=== PATIENT | female | born 1935 | race Caucasian/White ===

== ENCOUNTER 2017-08-27 09:14 | Day surgery (SDC) | payer MEDICARE, MEDICAID ==
[2017-08-26 12:06] VITALS: BMI 27.3
[2017-08-27 10:16] LABS: INR-International Normal Ratio 1.3; PTT 23.6 SEC (22.9-36.1); Prothrombin Time 16.1 SEC (12.0-14.7)
[2017-08-27 10:19] LABS: #Eosinphils 0.1 thou/uL (0.0-0.7); #Monocytes 0.4 thou/uL (0.11-0.59); %Basophils 0.4 % (0.0-1.0); %Lymphocytes 9.3 % (21.0-51.0); %Monocytes 3.9 % (0.0-10.0); %Neutrophils 85.3 % (42.0-75.0); Hemoglobin 11.8 g/dL (12.0-16.0); Mean Corpuscular HGB CONC 33.5 g/dL (32.0-36.0); Mean Corpuscular Hemoglobin 28.7 pg (27.0-31.0); Mean Corpuscular Volume 85.7 fl (81.0-99.0); Mean Platelet Volume 7.1 fL (7.4-10.4); Platelet Count 334 thou/uL (130-400); RBC Distribution Width 13.5 % (11.5-14.5); Red Blood Cell (RBC) Count 4.12 mill/uL (4.20-5.40); White Blood Cell (WBC) Count 10.5 thou/uL (4.8-10.8)
[2017-08-27 10:31] LABS: Anion Gap 18 mmol/L (10-20); BUN (Urea Nitrogen) 30 mg/dL (9.8-20.1); Calc. Creatinine Clearance 37 mL/min (70-130); Calcium 9.3 mg/dL (7.8-10.44); Carbon Dioxide 26 mmol/L (23-31); Chloride 98 mmol/L (98-107); Estimated GFR-MDRD 35; Glucose 116 mg/dL (83-110); Potassium 4.6 mmol/L (3.5-5.1); Sodium 137 mmol/L (136-145)
[2017-08-27] MEDS ORDERED: Lidocaine 1% (PF) 30 ML VIAL ONE (12:00)
[2017-08-27] MEDS ORDERED: Propofol 500 MG/50 ML VIAL ONE (12:12)
[2017-08-27] MEDS ORDERED: Heparin 10,000 UNITS/1 ML VIAL ONE (12:39)
[2017-08-27] MEDS ORDERED: DOPamine 400 MG/D5W 250 ML 250 ML ONE (12:39)
[2017-08-27] MEDS ORDERED: Ondansetron HCl/PF 4 MG/2 ML Vial ONE ×2 (13:15→16:19)
--- NOTE | 2017-08-27 16:07 | CCLSPC ---
AV BARRON ABLATION REPORT DATE OF PROCEDURE: 08/27/2017 REFERRING PHYSICIAN: Dr. Ayana oHuston. REASON FOR PROCEDURE: Ms. Temple is an 82-year-old female with history of atrial arrhythmia, paroxysmal atrial fibrillation, is highly symptomatic prior biventricular pacing implantation in 03/2017 with currently adequate function. She is here for AV barron ablation. PROCEDURE IN DETAIL: The patient received deep sedation by Anesthesia specialist. After adequate level of sedation achieved, the left femoral venous area was prepped, draped and anesthetized using subcutaneous lidocaine and with ultrasound guidance, the left femoral vein was cannulated. An 8-Wolof short sheath was introduced through which a J-curve uni-directional SmartTouch irrigative catheter was advanced to the right atrium and right atrial map was obtained and as well as His bundle ----- was marked on the 3D map. Following that, radiofrequency ablation was delivered at the fast pathway area tand hen to the slow pathway area, which successfully eliminated AV barron conduction. Returned rate was 38 beats per minute, junctional rhythm. No AV conduction was observed. Pacemaker was re-interrogated, reprogrammed to base rate of 75 beats per minute. The catheter was removed. No complications. No change in the cardiac silhouette. Post ablation pacemaker function was adequate. reprogrammed base rate to 75BPM. CONCLUSION: Successful AV barron ablation. PLAN: Routine followup, resume anticoagulants and taper off AV barron blocking agents. POS: [facility]
== END 2017-08-27 16:16 | disposition home or self-care (01) ==
LOC: CCL 09:14
PROVIDERS: ATTEND Internal Medicine Cardiovascular Disease
DX: I48.0 Paroxysmal atrial fibrillation (principal); I11.0 Hypertensive heart disease with heart failure; I50.9 Heart failure, unspecified; E78.00 Pure hypercholesterolemia, unspecified; I25.10 Atherosclerotic heart disease of native coronary artery without angina pectoris; J44.9 Chronic obstructive pulmonary disease, unspecified; Z79.01 Long term (current) use of anticoagulants; Z79.82 Long term (current) use of aspirin; Z79.52 Long term (current) use of systemic steroids; Z79.899 Other long term (current) drug therapy; Z91.041 Radiographic dye allergy status; Z95.820 Peripheral vascular angioplasty status with implants and grafts; Z98.41 Cataract extraction status, right eye; Z95.1 Presence of aortocoronary bypass graft; Z98.2 Presence of cerebrospinal fluid drainage device; Z95.0 Presence of cardiac pacemaker; Z98.890 Other specified postprocedural states; Z98.891 History of uterine scar from previous surgery
CPT/HCPCS: 76942; 80048; 85025; 85610; 85730; 93005; 93613; 93623; 93650; C1769; 93010; J1265; J1644; J2001; J2405; J2704

== ENCOUNTER 2017-11-12 16:49 | Inpatient (IN) | payer MEDICARE, MEDICAID ==
[2017-11-12] MEDS ORDERED: Magnesium Sulfate 2 GM/100 ML BAG ONE (17:12)
[2017-11-12 17:22] LABS: #Basophils 0.1 thou/uL (0.0-0.2); #Eosinphils 0.8 thou/uL (0.0-0.7); #Lymphocytes 1.2 thou/uL (1.20-3.40); #Monocytes 0.7 thou/uL (0.11-0.59); #Neutrophils 9.1 thou/uL (1.40-6.50); %Basophils 0.5 % (0.0-1.0); %Eosinophils 6.8 % (0.0-10.0); %Lymphocytes 9.8 % (21.0-51.0); %Neutrophils 76.9 % (42.0-75.0); Hemoglobin 10.3 g/dL (12.0-16.0); Mean Corpuscular HGB CONC 33.1 g/dL (32.0-36.0); Mean Corpuscular Hemoglobin 26.7 pg (27.0-31.0); Mean Corpuscular Volume 80.7 fl (81.0-99.0); Mean Platelet Volume 6.5 fL (7.4-10.4); Platelet Count 393 thou/uL (130-400); RBC Distribution Width 14.2 % (11.5-14.5); Red Blood Cell (RBC) Count 3.85 mill/uL (4.20-5.40); White Blood Cell (WBC) Count 11.8 thou/uL (4.8-10.8)
--- NOTE | 2017-11-12 17:30 | RAD ---
PORTABLE UPRIGHT CHEST ONE VIEW 11/12/17 HISTORY: 82-year-old female with dyspnea and shortness of breath. COMPARISON: 03/12/17. FINDINGS: Postop midline sternotomy. Left ICD. There are scattered bilateral interstitial and alveolar nodular parenchymal changes throughout both lungs with some blunting of the costophrenic angles, certainly wo rrisome for bilateral pulmonary edema. Diffuse atypical pneumonia or pneumonitis could have a similar appearance radiographically. No focal confluent process. IMPRESSION: Extensive bilateral interstitial and scattered alveolar nodular parenchymal changes throughout both l ungs with some blunting of the costophrenic angles favored to represent pulmonary edema, although aty pical pneumonia or pneumonitis could have a similar appearance radiographically. POS: [facility]
[2017-11-12] MEDS ORDERED: Nitroglycerin 2% Ointment 1 INCH/1 GM Packet ONE (17:40)
[2017-11-12 17:54] LABS: ALT (SGPT) Less than 7 U/L (8-55); AST (SGOT) 12 U/L (5-34); Albumin 3.8 g/dL (3.4-4.8); Alkaline Phosphatase 78 U/L (40-150); Anion Gap 16 mmol/L (10-20); BUN (Urea Nitrogen) 15 mg/dL (9.8-20.1); Bilirubin, Total 0.7 mg/dL (0.2-1.2); CK (CPK) 44 U/L (29-168); Calc. Creatinine Clearance 0 mL/min (70-130); Calcium 9.2 mg/dL (7.8-10.44); Carbon Dioxide 22 mmol/L (23-31); Chloride 95 mmol/L (98-107); Estimated GFR-MDRD 51; Globulin 4.2 g/dL (2.4-3.5); Glucose 128 mg/dL (83-110); Potassium 4.6 mmol/L (3.5-5.1); Sodium 128 mmol/L (136-145)
[2017-11-12 17:58] LABS: Troponin I Less than 0.010 ng/mL (< 0.028)
[2017-11-12] MEDS ORDERED: Furosemide 40 MG/4 ML VIAL ONE (18:31)
[2017-11-12 20:51] LABS: Troponin I Less than 0.010 ng/mL (< 0.028)
--- NOTE | 2017-11-12 21:10 | ULT ---
LEFT LOWER EXTREMITY VENOUS DUPLEX ULTRASOUND INCLUDING COLOR AND SPECTRAL DOPPLER IMAGIN11/12/17 HISTORY: 82-year-old female with history of left lower extremity pain and edema. Also shortness of breath. Exam performed from groin to ankle including visualized greater saphenous, common femoral, superficia l femoral, profunda femoral, popliteal, trifurcation, and posterior tibial vein regions. There is pha sic flow at all levels. There is normal compressibility and normal augmentation. No intraluminal thro mbus. IMPRESSION: No evidence for deep venous thrombosis. POS: [facility]
[2017-11-12] MEDS ORDERED: Acetaminophen 325 MG TAB PO PRN (21:56)
[2017-11-12] MEDS ORDERED: Milk Of Magnesia 30 ML UDCUP PO PRN (21:56)
[2017-11-12] MEDS ORDERED: Ondansetron HCl/PF 4 MG/2 ML Vial IVP PRN (22:58)
[2017-11-12] MEDS ORDERED: Ondansetron ODT 4 MG TAB SL PRN (22:58)
[2017-11-12 23:07] VITALS: BMI 26.6
[2017-11-12] MEDS ORDERED: Albuterol Sulfate 2.5 mg/3 ml Neb NEB PRN (23:15)
[2017-11-12] MEDS ORDERED: Rivaroxaban 15 MG TAB PO SCH (23:30)
[2017-11-12] MEDS ORDERED: Carvedilol 25 MG TAB PO SCH (23:30)
[2017-11-12 23:31] LABS: Troponin I Less than 0.010 ng/mL (< 0.028)
--- NOTE | 2017-11-13 00:29 | HP ---
PRIMARY CARE PHYSICIAN: Yamini Ibarra D.O. PRESENTING COMPLAINT: Shortness of breath. HISTORY OF PRESENT ILLNESS: Ms. Windy Cerrato is an 82-year-old female with a past medical history of CHF, AFib, CABG, and pacemaker placement, COPD, and hypertension who presented to the emergency room with a 1 week history of progressively worsening shortness of breath. She denies chest pain, palpitation, PND or orthopnea. She reports mild bilateral lower extremity edema. She states that for about 5 days she has not been taking her Lasix, although does not have any specific reasons why she stopped. She denies fever, chills, cough, and sputum production. She has no abdominal or urinary symptoms. At the emergency room, she was found to be slightly hypoxic and was started on oxygen supplementation. Her labs reveal slight leukocytosis and hyponatremia. BNP was over 1300. She was started on IV furosemide and admitted for acute CHF exacerbation. PAST MEDICAL HISTORY: As stated in the HPI. PAST SURGICAL HISTORY: Left carotid endarterectomy her left leg for PVD, as well as 4-vessel CABG. ALLERGIES: IODINE. SOCIAL HISTORY: Does not smoke cigarettes, drink alcohol or use illicit drugs. FAMILY HISTORY: Significant family history of heart disease. ALLERGIES: IODINE. HOME MEDICATIONS: Acetaminophen with codeine 1 tablet every 6 hours p.r.n., atorvastatin 80 mg at bedtime, diphenhydramine 50 mg every 6 hours, furosemide 40 mg daily, pantoprazole 40 mg daily, aspirin 81 mg daily, carvedilol 25 mg b.i.d., rivaroxaban 15 mg at bedtime. REVIEW OF SYSTEMS: Constitutional: Denies fevers or chills. HEENT: Negative. Cardiovascular: Denies chest pain. Positive for shortness of breath and lower extremity edema. Respiratory: Positive for shortness of breath, but denies cough or sputum production. Gastrointestinal: Negative. Genitourinary: Negative. Musculoskeletal: Negative. Skin: Negative. Neurological: Negative. Hematological/lymphatic: Negative. Allergy/immunology Negative. Psychiatric: Negative. PHYSICAL EXAMINATION: VITAL SIGNS: Heart rate 96, blood pressure 161/69, pulse rate 95, respiratory rate 27. GENERAL: Not in acute distress, sitting comfortably in bed, has nasal cannula oxygen going on 2 liters. HEENT: Normocephalic, atraumatic. Not pale, anicteric. Moist mucous membranes. PERRLA, EOMI. NECK: Supple, full range of movement. No JVD. RESPIRATORY: Bilateral bibasilar crackles in lower lung zone. CARDIOVASCULAR: Positive for systolic murmur, irregularly irregular rhythm with regular rate. S1 and S2. No rubs or gallops. ABDOMEN: Soft, nontender, nondistended. Bowel sounds normoactive. No hepatosplenomegaly. MUSCULOSKELETAL: Minimal bilateral lower extremity edema. NEUROLOGIC: Alert and well oriented to time, place and person. No focal deficits. SKIN: Warm, dry. No rashes or lesions. PSYCHIATRIC: No suicidal or homicidal ideations. Mood and affect. GENITOURINARY: Deferred. LABORATORY DATA: As stated in HPI. Chest x-ray showed extensive bilateral interstitial and scattered alveolar nodular parenchymal changes throughout both lungs with some blunting of the costophrenic angles favored to represent pulmonary edema or due to atypical pneumonia or pneumonitis could have a similar appearance radiographically. EKG, no signs of acute ischemia. ASSESSMENT AND PLAN: 1. Acute congestive heart failure exacerbation. The patient has an ejection fraction of 50-55% from echocardiogram done in 02/2017. She also had a cardiac catheterization in 08/2017. She has been started on oxygen supplementation, intravenous furosemide. Her ins and outs will be monitored as well as daily weights. Cardiology will be consulted. Troponin will also be trended and she will be monitored on telemetry. She reports feeling much better since receiving IV furosemide. 2. Atrial fibrillation. She is currently rate controlled. We will continue on her home regimen of aspirin and Xarelto, as well as carvedilol. 3. Coronary artery disease status post CABG and pacemaker. Currently, chest pain free. We will resume home medications once confirmed. 4. Hypertension, fairly blood pressure is not at goal. We will resume home medications once confirmed. Deep venous thrombosis prophylaxis. The patient on anticoagulation with Xarelto. CODE STATUS: FULL CODE. MTDD
[2017-11-13 05:08] LABS: #Lymphocytes 0.6 thou/uL (1.20-3.40); #Monocytes 0.1 thou/uL (0.11-0.59); #Neutrophils 4.9 thou/uL (1.40-6.50); %Basophils 0.7 % (0.0-1.0); %Eosinophils 0.1 % (0.0-10.0); %Monocytes 1.4 % (0.0-10.0); %Neutrophils 86.8 % (42.0-75.0); Hemoglobin 9.7 g/dL (12.0-16.0); Mean Corpuscular HGB CONC 32.3 g/dL (32.0-36.0); Mean Corpuscular Hemoglobin 25.8 pg (27.0-31.0); Mean Platelet Volume 6.7 fL (7.4-10.4); Platelet Count 359 thou/uL (130-400); RBC Distribution Width 14.1 % (11.5-14.5); Red Blood Cell (RBC) Count 3.75 mill/uL (4.20-5.40); White Blood Cell (WBC) Count 5.7 thou/uL (4.8-10.8)
[2017-11-13 05:17] LABS: Anion Gap 14 mmol/L (10-20); BUN (Urea Nitrogen) 19 mg/dL (9.8-20.1); Calc. Creatinine Clearance 54 mL/min (70-130); Calcium 8.6 mg/dL (7.8-10.44); Carbon Dioxide 25 mmol/L (23-31); Chloride 95 mmol/L (98-107); Estimated GFR-MDRD 55; Glucose 156 mg/dL (83-110); Sodium 130 mmol/L (136-145)
[2017-11-13] MEDS ORDERED: Furosemide 40 MG/4 ML VIAL SLOW IVP SCH (06:00)
[2017-11-13] MEDS ORDERED: Carvedilol 25 MG TAB PO SCH (08:00)
[2017-11-13] MEDS ORDERED: Aspirin 81 mg Enteric Coated Tablet PO SCH (09:00)
[2017-11-13] MEDS ORDERED: Docusate 100 MG CAP PO SCH (09:00)
[2017-11-13] MEDS ORDERED: Digoxin 0.125 MG TAB PO SCH (09:00)
[2017-11-13 12:04] VITALS: BP 158/85; TEMP 98.2
--- NOTE | 2017-11-13 13:23 | CON ---
DATE OF CONSULTATION: 11/13/2017 REASON FOR CONSULTATION: Heart failure. HISTORY OF PRESENT ILLNESS: Ms. Temple is a pleasant 82-year-old white female, who comes to the [facility] for shortness of breath. She states she has not been taking her Lasix lately for the last 5 d ays and she started to get short of breath, so she came in. She received 1 dose of IV Lasix, diurese d some, and is feeling much better today. She wants to go home. She denies any chest pain, tightnes s, pressure. Shortness of breath is gone. She is currently on room air. PAST MEDICAL HISTORY: 1. History of diastolic heart failure. Her LV function most recently was evaluated in February and it was 50%-55%. 2. Atrial fibrillation, chronic, status post AV node ablation. 3. Coronary artery bypass grafting. 4. Biventricular pacemaker placement. 5. Chronic obstructive pulmonary disease. 6. Hypertension. PAST SURGICAL HISTORY: 1. Left carotid endarterectomy. 2. Left leg PVD intervention. 3. Four-vessel CABG. OUTPATIENT MEDICATIONS: Include, 1. Codeine. 2. Atorvastatin 80 mg at bedtime. 3. Diphenhydramine. 4. Furosemide 40 mg a day. 5. Pantoprazole 40 mg a day. 6. Aspirin 81 a day. 7. Carvedilol 25 mg b.i.d. 8. Xarelto 50 mg at bedtime. ALLERGIES: IODINE. SOCIAL HISTORY: No alcohol, tobacco, or drugs. FAMILY HISTORY: Early coronary artery disease, inconsequential at her age. REVIEW OF SYSTEMS: A 12-point review of systems was done, is otherwise negative unless stated in the history of present illness. PHYSICAL EXAMINATION: VITAL SIGNS: Temperature 98.2, pulse 77, respiratory rate 20, satting 95% on room air, blood pressur e 158/85. GENERAL: Awake, alert, oriented x3, in no distress. HEENT: Normocephalic. NECK: Supple. LUNGS: Lungs are clear. CARDIOVASCULAR: S1, S2, no S3, S4, no murmurs. ABDOMEN: Soft. Positive bowel sounds. EXTREMITIES: Trace edema. SKIN: Warm and dry. LABORATORY WORK: Reviewed. Troponins were undetectable. BNP was 1300. ASSESSMENT AND PLAN: 1. Acute on chronic heart failure, could be diastolic. Her last echocardiogram was in February. She did not have an acute coronary syndrome, most likely related to medication noncompliance , as she did not take any of her Lasix for the last week. She feels much better. She wants to go ho me. She is very adamant about this. She has an appointment. Follow up with Dr. Houston in 20 days. She was asked to keep this. She states that she will show up and she will keep taking her medicatio ns. 2. Chronic atrial fibrillation, status post AV node ablation, a dual pacemaker in place. A paced he art rate on telemetry. 3. Coronary artery disease, status post bypass. No acute coronary syndrome, negative troponins. 4. Hypertension, most likely not controlled due to medication noncompliance. She was encouraged on medication compliance again. DISCHARGE INSTRUCTIONS: 1. Disposition: The patient can be sent home today. 2. She will follow up with Dr. Houston in 2 weeks. 3. We will sign off. Thank you for consultation.
[2017-11-13] MEDS ORDERED: Rivaroxaban 15 MG TAB PO SCH (21:00)
--- NOTE | 2017-11-13 22:20 | DIS ---
DATE OF ADMISSION: 11/12/2017 DATE OF DISCHARGE: 11/13/2017 CONDITION AT THE TIME OF DISCHARGE: Stable and improved. DISCHARGE DIAGNOSES: 1. Acute on chronic congestive heart failure exacerbation; diastolic in nature. 2. Chronic atrial fibrillation, status post AV ablation. 3. History of coronary artery disease, status post coronary artery bypass graft. 4. History of biventricular pacemaker placement 5. Chronic obstructive pulmonary disease. 6. Hypertension. CONSULTATIONS INHOUSE: Cardiology, Dr. Johnson. PRIMARY CARE PHYSICIAN: Yamini Ibarra D.O. DISCHARGE MEDICATIONS: Remain the same as admission medication. Please see admission history and ph ysical for further details. PROCEDURES DONE IN THE HOSPITAL: Lower extremity ultrasound which is negative for any DVT and chest x-ray which shows pulmonary vascular congestion. HISTORY OF PRESENTING ILLNESS: Ms. Temple is an 82-year-old female with known history of diastolic congestive heart failure, chronic AFIB, coronary artery disease and biventricular pacemaker placemen t who presented to the emergency room with complaints of shortness of breath. She did not take her L asix for the last 5 days on purpose and because of laziness and presented with fluid overload and acu te CHF. She was admitted for IV diuresis and Cardiology was consulted. She was restarted on all of her home medications including Xarelto as well as Lipitor, Protonix, Coreg, Cardizem, digoxin and Kraig icar. Please see admission history and physical for further details. HOSPITAL COURSE: Ms. Temple it had quick improvement in her symptoms and this morning she is back to her baseline. She had excellent diuresis and is ready to leave the hospital. Cardiology saw the patient and agreed with resuming the home dose of Lasix as she has had good diuresis and is on room a ir saturating 95% and very adamant about going home. She follows up with Dr. Houston in the clinic an d is instructed to follow up with him as an outpatient. She was given option to stay in the hospital 1 more night for further diuresis, but because she is hemodynamically stable and back to her baselin e, she will be discharged. She is strongly instructed to continue her home medication of Lasix for n ow. She was seen and examined prior to discharge. PHYSICAL EXAMINATION: VITAL SIGNS: This morning, temperature 98.2, pulse of 77, respirations 20, saturating 95% on room ai r, blood pressure 158/85. GENERAL: No acute distress, awake, alert, and oriented x3. CHEST: Clear to auscultation without any wheezing, rales or rhonchi. Rhythm is regular without any murmur, rubs or gallops. NEUROLOGICAL: Examination is nonfocal. LABORATORY DATA: CBC shows WBCs 5.7, which was 11.8 on presentation with 86% neutrophils. Serum dania gail shows sodium of 130, which was 128 upon presentation. Cardiac enzymes negative x3. BNP on pr esentation 1380. DISCHARGE DISPOSITION: Home. DISCHARGE FOLLOWUP: 1. PCP. 2. Cardiology, Dr. Houston.
== END 2017-11-13 13:46 | disposition home or self-care (01) | DRG 292 ==
LOC: ERS 16:49 → 2SE 19:00
PROVIDERS: ADMIT Internal Medicine; ATTEND Internal Medicine
DX: I11.0 Hypertensive heart disease with heart failure (principal); E87.1 Hypo-osmolality and hyponatremia; I50.33 Acute on chronic diastolic (congestive) heart failure; I48.2 Chronic atrial fibrillation; I25.10 Atherosclerotic heart disease of native coronary artery without angina pectoris; J44.9 Chronic obstructive pulmonary disease, unspecified; T50.1X6A Underdosing of loop [high-ceiling] diuretics, initial encounter; Z91.128 Patient's intentional underdosing of medication regimen for other reason; I73.9 Peripheral vascular disease, unspecified; Z95.1 Presence of aortocoronary bypass graft; Z95.0 Presence of cardiac pacemaker; Z88.8 Allergy status to other drugs, medicaments and biological substances; Z79.01 Long term (current) use of anticoagulants; Z79.82 Long term (current) use of aspirin; Z79.899 Other long term (current) drug therapy
CPT/HCPCS: 36415; 71045; 80048; 80053; 82550; 82553; 83880; 84484; 85025; 93005; 94760; 96365; 96375; A4216; J1940; J3475

== ENCOUNTER 2017-12-14 17:01 | Emergency (ER) | payer MEDICARE, MEDICAID ==
[2017-12-14 18:00] LABS: #Basophils 0.1 thou/uL (0.0-0.2); #Eosinphils 0.5 thou/uL (0.0-0.7); #Lymphocytes 0.8 thou/uL (1.20-3.40); #Monocytes 0.3 thou/uL (0.11-0.59); #Neutrophils 7.1 thou/uL (1.40-6.50); %Basophils 0.8 % (0.0-1.0); %Eosinophils 5.9 % (0.0-10.0); %Lymphocytes 9.1 % (21.0-51.0); %Monocytes 3.4 % (0.0-10.0); %Neutrophils 80.8 % (42.0-75.0); Hemoglobin 9.6 g/dL (12.0-16.0); Mean Corpuscular HGB CONC 32.6 g/dL (32.0-36.0); Mean Corpuscular Hemoglobin 25.2 pg (27.0-31.0); Mean Corpuscular Volume 77.3 fl (81.0-99.0); Mean Platelet Volume 6.3 fL (7.4-10.4); Platelet Count 395 thou/uL (130-400); RBC Distribution Width 14.7 % (11.5-14.5); Red Blood Cell (RBC) Count 3.79 mill/uL (4.20-5.40); White Blood Cell (WBC) Count 8.8 thou/uL (4.8-10.8)
[2017-12-14 18:28] LABS: Anion Gap 15 mmol/L (10-20); BUN (Urea Nitrogen) 19 mg/dL (9.8-20.1); Calc. Creatinine Clearance 0 mL/min (70-130); Calcium 9.1 mg/dL (7.8-10.44); Carbon Dioxide 23 mmol/L (23-31); Chloride 97 mmol/L (98-107); Estimated GFR-MDRD 47; Glucose 120 mg/dL (83-110); Potassium 4.8 mmol/L (3.5-5.1); Sodium 130 mmol/L (136-145)
[2017-12-14 18:33] LABS: CKMB 0.9 ng/mL (0-6.6); Troponin I Less than 0.010 ng/mL (< 0.028)
--- NOTE | 2017-12-14 18:56 | RAD ---
CHEST ONE VIEW: 12/14/17 COMPARISON: 11/12/17 HISTORY: Dyspnea. FINDINGS: Sternotomy wires and transvenous pacemaker are redemonstrated. Atherosclerosis of the aorta is noted. Heart size is within normal limits. There is pulmonary vascular congestion, interstitial and alveola r opacification which is similar to the previous examination. Congestive heart failure is favored. At ypical pneumonia or pneumonitis can have a similar appearance. Correlate clinically. There is no pneu mothorax or osseous abnormalities. IMPRESSION: Findings as above. POS: [facility]
[2017-12-14] MEDS ORDERED: Furosemide 40 MG/4 ML VIAL ONE (19:07)
--- NOTE | 2017-12-25 15:09 | EKG ---
Test Reason : Blood Pressure : / mmHG Vent. Rate : 084 BPM Atrial Rate : 087 BPM P-R Int : 000 ms QRS Dur : 132 ms QT Int : 404 ms P-R-T Axes : 000 -41 097 degrees QTc Int : 477 ms AV dual-paced rhythm Abnormal ECG Confirmed by ASIA MAR [id number]), manuscript editor LEO MORROW ([id number]) on 12/25/2017 3:09:17 PM Referred By: Confirmed By:ASIA MAR
== END 2017-12-14 20:05 | disposition home or self-care (01) ==
LOC: ERS 17:01
DX: I11.0 Hypertensive heart disease with heart failure (principal); I50.9 Heart failure, unspecified; J44.1 Chronic obstructive pulmonary disease with (acute) exacerbation; I25.10 Atherosclerotic heart disease of native coronary artery without angina pectoris; E78.5 Hyperlipidemia, unspecified; Z87.891 Personal history of nicotine dependence; Z79.82 Long term (current) use of aspirin; Z79.899 Other long term (current) drug therapy
CPT/HCPCS: 36415; 71045; 80048; 82553; 83880; 84484; 85025; 93005; 94640; 96374; J1940; J7620

== ENCOUNTER 2018-01-18 14:56 | Inpatient (IN) | payer MEDICARE, MEDICAID ==
--- NOTE | 2018-01-18 15:28 | RAD ---
CHEST 1 VIEW: Date: 01/18/18 HISTORY: Syncope. Weakness. COMPARISON: 12/14/17. FINDINGS: Cardiac silhouette is magnified and upper limits of normal in size. Patchy bibasilar infiltrates have improved significantly since the prior study. Mild residual atelectasis right base. Mediastinum is m idline with aortic calcification, postoperative changes, and a multilead left subclavian cardiac elec tronic device. No lobar consolidation or evidence of pneumothorax. IMPRESSION: 1. Improved aeration of the lung bases compared to the previous exam from 1 month ago. No active car diopulmonary abnormalities are apparent. 2. Atherosclerosis. POS: [facility]
[2018-01-18] MEDS ORDERED: Pantoprazole 40 MG VIAL ONE (15:48)
[2018-01-18 15:58] LABS: Mean Corpuscular HGB CONC 31.9 g/dL (32.0-36.0); Mean Corpuscular Hemoglobin 22.5 pg (27.0-31.0); Mean Corpuscular Volume 70.5 fL (78.0-98.0); Mean Platelet Volume 6.4 fL (7.4-10.4); Platelet Count 533 thou/uL (130-400); RBC Distribution Width 15.8 % (11.5-14.5); Red Blood Cell (RBC) Count 3.11 mill/uL (4.20-5.40); White Blood Cell (WBC) Count 9.4 thou/uL (4.8-10.8)
[2018-01-18 16:02] LABS: INR-International Normal Ratio 1.4; PTT 49.6 SEC (22.9-36.1); Prothrombin Time 17.3 SEC (12.0-14.7)
[2018-01-18 16:15] LABS: ALT (SGPT) 9 U/L (8-55); AST (SGOT) 13 U/L (5-34); Alkaline Phosphatase 82 U/L (40-150); Anion Gap 14 mmol/L (10-20); BUN (Urea Nitrogen) 15 mg/dL (9.8-20.1); Bilirubin, Total 0.6 mg/dL (0.2-1.2); CK (CPK) 49 U/L (29-168); Calc. Creatinine Clearance 0 mL/min (70-130); Calcium 9.4 mg/dL (7.8-10.44); Carbon Dioxide 27 mmol/L (23-31); Chloride 92 mmol/L (98-107); Estimated GFR-MDRD 42; Globulin 3.8 g/dL (2.4-3.5); Glucose 105 mg/dL (83-110); Potassium 4.9 mmol/L (3.5-5.1); Protein, Total 7.8 g/dL (6.0-8.3); Sodium 128 mmol/L (136-145)
[2018-01-18 16:19] LABS: CKMB 1.2 ng/mL (0-6.6); Troponin I Less than 0.010 ng/mL (< 0.028)
[2018-01-18 16:29] LABS: #Basophils 0.1 thou/uL (0.0-0.2); #Eosinphils 0.3 thou/uL (0.0-0.7); #Lymphocytes 1.4 thou/uL (1.20-3.40); #Monocytes 0.7 thou/uL (0.11-0.59); #Neutrophils 6.9 thou/uL (1.40-6.50); %Basophils 0.9 % (0.0-1.0); %Eosinophils 2.8 % (0.0-10.0); %Lymphocytes 14.4 % (21.0-51.0); %Monocytes 7.7 % (0.0-10.0); %Neutrophils 74.1 % (42.0-75.0); Anisocytosis SLIGHT = 6-15 cells (100X) (0-5/hpf); Hypochromia SLIGHT = 6-15 cells (100X) (0-5/hpf); MDiff Complete? YES; Microcytosis SLIGHT = 6-15 cells (100X) (0-5/hpf); PLT Morphology Comment Appears Increased
[2018-01-18 16:49] LABS: Iron 17 ug/dL (50-170); Iron Binding Capacity, Total 430 mcg/dL (265-497)
[2018-01-18] MEDS ORDERED: GoLYTELY 4,000 ml Bottle PO SCH (19:00)
[2018-01-18 19:53] VITALS: BMI 25.6
[2018-01-18 22:24] LABS: Troponin I Less than 0.010 ng/mL (< 0.028)
[2018-01-19] MEDS ORDERED: Acetaminophen 325 MG TAB PO PRN (00:23)
--- NOTE | 2018-01-19 01:55 | CON ---
DATE OF CONSULTATION: 01/18/2018 REASON FOR CONSULTATION: Anemia. CONSULTING PHYSICIAN: Dr. Roe Bloom. HISTORY OF PRESENT ILLNESS: Patient is an 82-year-old female with past medical history of diastolic heart failure, atrial fibrillation, status post AV node ablation, coronary artery disease with status post coronary artery bypass graft, biventricular and biventricular pacemaker placement, chronic obst ructive pulmonary disease, and hypertension presenting with complaints of anemia/weakness. She state s that she was in her usual state of health until approximately 4 weeks ago. She started having comp laints of alternating bowel habits characterized as one day of solid stools followed by one day of mo re semisolid liquid stools. During these days of liquid stools, she would have approximately 1-2 elisa isolid to liquid stools with no difficulty with defecation; however, with increased diarrhea-like epi sodes, she complained of increased bright red blood per rectum that was present only on the toilet pa per, not in the toilet. She started taking Imodium to help control her diarrheal episodes with resol ution of her hematochezia shortly thereafter with solidification of her stools. However, over the 3 weeks, she has been also complains of increased weakness primarily in the lower extremities, dif ficulty with ambulation and increased shortness of breath with any sort of exertion. She was evaluat ed by her primary care physician who lobo routine labs and noted a severe anemia earlier today. The patient was then called by her primary care physician who recommended she present to the nearest ER f or further evaluation. Currently, the patient states that she is doing well other than increased low er extremity discomfort secondary to restless leg syndrome. Otherwise, over the last 3-4 weeks, she denies any nausea, vomiting, fevers, chills, shortness of breath, dysphagia, odynophagia, or weight l oss; however, upon further questioning, she also complained of intermittent abdominal cramping that w ould occur approximately once every 1-2 weeks and had been occurring over the last 2-3 months. This abdominal cramping was located primarily in the periumbilical region intermittent with periods of melvin n relief, nonradiating, and would reach a severity of approximately 5-6/10. There were no clear asso ciated or alleviating factors; however, with the onset of her cramping abdominal pain, she would noti ce an increase in the amount of hematochezia she would experience. REVIEW OF SYSTEMS: A category review of systems was obtained with all responses negative except for the pertinent positives as listed in the HPI. PAST MEDICAL HISTORY: As per HPI. PAST SURGICAL HISTORY: Left carotid endarterectomy, left lower extremity peripheral vascular disease intervention, four-vessel CABG. FAMILY HISTORY: Denies any GI malignancies. SOCIAL HISTORY: Denies any alcohol, tobacco, or illicit drug use. OUTPATIENT MEDICATIONS: Reviewed. ALLERGIES: IODINE. PHYSICAL EXAMINATION: VITAL SIGNS: Temperature of 98.2, pulse 77, blood pressure 158/85, respiratory rate 20, satting 96% on room air. GENERAL: Patient is lying in bed in no acute distress. Alert and oriented x4. NECK: Supple. No JVD noted. CARDIOVASCULAR: 3/6 systolic murmur was best heard at the left upper sternal border with radiation a cross the precordium, otherwise no discernible gallops or rubs and normal rate. RESPIRATORY: Clear to auscultation bilaterally, but slightly diminished breath sounds in the bilater al lower lung bases. ABDOMEN: Normoactive bowel sounds. Soft, nondistended, mild tenderness to palpation in the periumbi lical region. EXTREMITIES: No cyanosis, clubbing, or edema. LABORATORY DATA: CBC with a white blood cell count of 9.4, hemoglobin 7, hematocrit 22, platelets 53 3. INR 1.4. Chemistry with a sodium of 128, potassium 4.9, chloride 92, CO2 of 27, BUN 15, creatini ne 1.24, glucose 105. AST 13, ALT 9, alkaline phosphatase 82, total bilirubin 0.6, albumin 4.0. IMAGING DATA: Chest x-ray obtained on 01/18/2018, showed improved aeration of the lung bases compare d to previous exams. No active cardiopulmonary abnormalities were apparent, and there was aortic jose alberto cification and postoperative changes from CABG noted. ASSESSMENT AND PLAN: The patient is an 82-year-old female with past medical history of atrial fibril lation, acute on chronic systolic/diastolic heart failure, coronary artery disease status post CABG, peripheral vascular disease, cerebrovascular accident prior history of DVTs and GI bleed secondary to ulcers, hypertension and hyperlipidemia presenting with anemia and hematochezia. Anemia: The patient is presenting with a history of alternating bowel habits over the last 3-4 weeks along with increased lower extremity weakness and dyspnea on exertion over the last 2-3 weeks. Upon evaluation with routine labs obtained by her PCP earlier today, she was noted to have a significant anemia, which is a change from her baseline. Upon chart review, she has had down trending H&H since 03/2017, but most notably within the last 3-4 weeks dropped from a hemoglobin of 9 to a hemoglobin of 7. At this time, she does complain of intermittent bouts of hematochezia characterized as bright re d blood per rectum, but was usually associated with increased diarrhea-like bowel movements. However , she does have intermittent episodes of cramping abdominal pain that resulted in increased amounts o f hematochezia as well. At this point, it is unclear as to the locality of her GI bleed, but could c onsist of either an upper or lower gastrointestinal source (more likely lower gastrointestinal in josselyn gin) and we will require endoscopic intervention for evaluation. RECOMMENDATIONS: 1. We will place patient on a clear liquid diet tonight in preparation for procedures tomorrow. 2. We will plan for both upper endoscopy and colonoscopy tomorrow morning for evaluation of current microcytic anemia concerning for iron-deficiency anemia. 3. We would continue to trend H&H and transfuse as necessary to maintain an H&H on 01/29. 4. Continue to monitor clinically for signs of active gastrointestinal bleeding. 5. Would place patient on pantoprazole 40 mg daily for a possible upper gastrointestinal bleeding, c ontinuation to outpatient regimen. 6. Further recommendations to follow endoscopic evaluation. We will continue to follow, please call with any questions.
[2018-01-19 05:30] LABS: Anion Gap 11 mmol/L (10-20); BUN (Urea Nitrogen) 13 mg/dL (9.8-20.1); Calc. Creatinine Clearance 41 mL/min (70-130); Carbon Dioxide 30 mmol/L (23-31); Chloride 94 mmol/L (98-107); Estimated GFR-MDRD 43; Glucose 92 mg/dL (83-110); Magnesium 1.9 mg/dL (1.6-2.6); Potassium 4.2 mmol/L (3.5-5.1); Sodium 131 mmol/L (136-145)
[2018-01-19 05:35] LABS: #Basophils 0.1 thou/uL (0.0-0.2); #Eosinphils 0.4 thou/uL (0.0-0.7); #Lymphocytes 1.6 thou/uL (1.20-3.40); #Neutrophils 5.7 thou/uL (1.40-6.50); %Basophils 1.2 % (0.0-1.0); %Eosinophils 4.6 % (0.0-10.0); %Lymphocytes 17.8 % (21.0-51.0); %Monocytes 10.9 % (0.0-10.0); %Neutrophils 65.5 % (42.0-75.0); Hemoglobin 7.5 g/dL (12.0-16.0); Mean Corpuscular HGB CONC 32.4 g/dL (32.0-36.0); Mean Corpuscular Hemoglobin 23.8 pg (27.0-31.0); Mean Corpuscular Volume 73.5 fL (78.0-98.0); Mean Platelet Volume 6.5 fL (7.4-10.4); Platelet Count 431 thou/uL (130-400); RBC Distribution Width 17.9 % (11.5-14.5); Red Blood Cell (RBC) Count 3.14 mill/uL (4.20-5.40); White Blood Cell (WBC) Count 8.7 thou/uL (4.8-10.8)
[2018-01-19] MEDS ORDERED: cloNIDine 0.1 MG TAB PO PRN (05:56)
[2018-01-19] MEDS ORDERED: hydrALAZINE 20 MG/ML VIAL SLOW IVP PRN (05:56)
[2018-01-19] MEDS ORDERED: Ondansetron ODT 4 MG TAB PO PRN (05:56)
[2018-01-19] MEDS ORDERED: Ondansetron HCl/PF 4 MG/2 ML Vial IVP PRN (05:56)
[2018-01-19] MEDS: Sodium Chloride 0.9% 1,000 ML IV SCH (06:28)
--- NOTE | 2018-01-19 06:33 | HP ---
PRIMARY CARE PHYSICIAN: Dr. Yamini Ibarra CHIEF COMPLAINT: Anemia. HISTORY OF PRESENT ILLNESS: This is an 82-year-old female who presents to [facility] Emergency Department after being told by her primary care provider to come to the emergency room for further evaluation of persistent and worsening anemia. The patient had noticed decreasing hemogl obin values starting in late 2017, worsening in the last 3-4 weeks. The patient states she has had i ntermittent blood in the stool, but none currently and no melena. The patient does admit to have sev eral loose bowel movements which have become persistent in the last several weeks. The patient has n oted increasing weakness when ambulating and having to hold onto the wall in her house to navigate fr om her living room to the kitchen. The patient states she has had an increase in her weakness to suc h an extent that she is contemplating moving into a fci. The patient does admit to chronic aspirin therapy of 81 mg. The patient denies any chronic anticoagulation therapy. The patient denie s any specific fever, chills, travel history or change her dietary regimen. The patient denies any f amily members with similar symptoms. The patient does admit to some abdominal cramping in the perium bilical region and states her stools are somewhat semi-solid to liquid over the last 3-4 weeks. In [facility] emergency room, the patient underwent general evaluation including screening CBC showing hemoglobi n of 6.8, previously noted 9.66 at 12/14/2017. The patient received 1 unit of packed red blood cells and was transferred to the telemetry unit for further evaluation. PAST MEDICAL HISTORY: 1. Acute on chronic normocytic anemia. 2. Carotid artery disease. 3. Peripheral vascular disease. 4. Coronary artery disease. 5. Question of chronic obstructive pulmonary disease. PAST SURGICAL HISTORY: 1. Status post left carotid endarterectomy. 2. Status post stent placement to left lower extremity. 3. Status post coronary artery bypass grafting x4 vessels. CURRENT MEDICATIONS: 1. Enteric coated aspirin 81 mg 1 tab p.o. daily. 2. Lipitor 80 mg p.o. at bedtime. 3. Digoxin 0.125 mg p.o. daily. 4. Lasix 40 mg 1 tab p.o. daily. 5. Galantamine 12 mg p.o. b.i.d. 6. Metoprolol succinate 25 mg p.o. daily. 7. Protonix 40 mg p.o. daily. 8. Klor-Con 10 mEq p.o. daily. ALLERGIES: IODINE. FAMILY HISTORY: Positive for coronary artery disease. SOCIAL HISTORY: The patient resides in the [place], [place] area. . Ambulates with a rolling walker. No tobacco, alcohol, or illicit drug use. REVIEW OF SYSTEMS: The following complete review of systems was negative, unless otherwise mentioned in the HPI or below: Constitutional: Weight loss or gain, ability to conduct usual activities. Skin: Rash, itching. Eyes: Double vision, pain. ENT/Mouth: Nose bleeding, neck stiffness, pain, tenderness. Cardiovascular: Palpitations, dyspnea on exertion, orthopnea. Respiratory: Shortness of breath, wheezing, cough, hemoptysis, fever or night sweats. Gastrointestinal: Poor appetite, abdominal pain, heartburn, nausea, vomiting, constipation, or diarrhea. Genitourinary: Urgency, frequency, dysuria, nocturia. Musculoskeletal: Pain, swelling. Neurologic/Psychiatric: Anxiety, depression. Allergy/Immunologic: Skin rash, bleeding tendency. Otherwise negative except as stated per history of present illness. PHYSICAL EXAMINATION: VITAL SIGNS: Currently, blood pressure 137/62, pulse 80, respiratory rate 17, temperature 98.1 degre es Fahrenheit, O2 saturation 94% on room air. GENERAL APPEARANCE: This is an 82-year-old female, alert and oriented x3, pleasant, respon sive, in no acute distress. HEENT: Pupils are equal, round, and reactive to light and accommodation. Extraocular muscles are in tact. No scleral icterus, no conjunctival injection. Nares patent. OP is clear. Teeth in fair rep air. NECK: Supple, no cervical adenopathy, no thyromegaly, no carotid bruits, no JVD appreciated. Cervic al spine with full active and passive range of motion. No meningeal signs appreciated. CHEST: Lungs are clear to auscultation bilaterally. CARDIOVASCULAR: S1, S2 with a 2/6 systolic ejection murmur in the left upper sternal border. No gal lop appreciated. ABDOMEN: Rounded, soft, nontender, nondistended. Bowel sounds are positive in all 4 quadrants. No hepatosplenomegaly, no abdominal bruits, no rebound or guarding appreciated. EXTREMITIES: Warm and dry with fair turgor. No clubbing, cyanosis or asymmetric edema appreciated. Pulses are palpable distally at the dorsalis pedis, posterior tibial, and popliteal arteries bilater ally. Capillary refill less than 2 seconds. NEUROLOGIC: Cranial nerves II-XII are grossly intact. No focal or lateralizing signs appreciated. PERTINENT LABORATORY AND X-RAY FINDINGS: Sodium 131, potassium 4.2, chloride is 94, CO2 of 30, BUN 1 3, creatinine 1.21. Estimated GFR 43, glucose 92, calcium 9.0, magnesium 1.9. Serum iron level 17, ferritin 36. LFTs within normal limits. Troponin I negative x3. Albumin 4.0. CBC showed a hemoglo bin ranging between 7.0-7.5, MCV 71, platelet count 533 with normal differential. PT 17.3, INR 1.4, PTT 50. Portable chest x-ray dated 01/18/2018 showed no acute cardiopulmonary process. EKG dated 01/18/2018 by my interpretation shows a dual chamber electronic pacemaker with heart rates in the 70s. ASSESSMENT AND PLAN: 1. Acute on chronic microcytic anemia secondary to suspected blood loss. The patient will be admitt ed to the telemetry unit. A GI consult for endoscopy. Status post 1 unit of packed red blood cells. Continue serial H&H monitoring. Protonix 40 mg p.o. daily. Repeat CBC in the a.m. 2. Gastrointestinal bleeding, suspected. Endoscopy to include EGD and colonoscopy on 01/19/2018. See #1 above. Avoid anticoagulation and NSAIDs. 3. Hyponatremia. Chronic after review of electronic medical record. We will continue normal saline at 50 mL per hour. Serial sodium monitoring. 4. Chronic kidney disease stage 3. We will continue intravenous normal saline as outlined previousl y. Avoid nephrotoxic agents and limit contrast media exposure. 5. Hypertension. Resume home antihypertensive regimen and monitor clinical response. 6. Prophylaxis. Sequential compression devices while in bed. Protonix 40 mg p.o. daily. Physical therapy evaluation for functional assessment. 7. Code status is full. Surrogate medical decision maker is the patient's son.
[2018-01-19] MEDS: Digoxin 0.125 MG TAB PO SCH (08:42)
[2018-01-19 11:11] LABS: Digoxin 1.03 ng/mL (0.8-2.0)
[2018-01-19] MEDS ORDERED: Lidocaine 1% PF 5 ML VIAL ONE (13:36)
[2018-01-19] MEDS ORDERED: PROPOFOL 200 MG/20 ML VIAL ONE (13:36)
[2018-01-19] MEDS ORDERED: PHENYLEPHRINE-NS 100 MCG/ML 10 ML SYRINGE ONE (13:36)
--- NOTE | 2018-01-19 14:43 | OP ---
DATE OF PROCEDURE: 01/19/2018 PROCEDURE: 1. Esophagogastroduodenoscopy. 2. Colonoscopy with snare polypectomy. PREOPERATIVE DIAGNOSIS: Iron deficiency anemia with hemoglobin of 7 g/dL. POSTOPERATIVE DIAGNOSES: 1. Normal upper endoscopy. 2. Three colon polyps, status post polypectomy. 3. Sigmoid diverticulosis coli. PROCEDURE IN DETAIL: A written consent was obtained prior to procedure. After adequate sedation, th e forward-viewing endoscope was advanced down the stomach under direct vision to the third portion of duodenum. The duodenum appeared normal. The pylorus was patent. The gastric antrum, body, fundus, and cardia all appeared normal. Retroflexion did not show any abnormality. The GE junction, lower, mid, and upper esophagus appeared normal. The patient was then repositioned for colonoscopy. Rectal exam performed was normal. Endoscope was advanced to the cecum. The quality of the bowel prep was good. The cecum, ascending colon, hepatic flexure appeared normal. Three polyps were noted and removed from the transverse, sigmoid, and recta l vault. These polyp range is from 4-6 mm, 3 mm sessile and removed with an electrocautery with good hemostasis. All were retrieved. Otherwise, the transverse, descending colon, and rectosigmoid colo n appeared normal. Scattered diverticula were noted in the sigmoid colon. The rectal vault includin g retroflexion were normal. Patient tolerated the procedure well. ASSESSMENT: 1. Three colon polyps removed. 2. Sigmoid diverticulosis coli. 3. Normal upper endoscopy. RECOMMENDATIONS: 1. Await biopsy result of the polyps. 2. Start iron supplement. 3. Patient can be discharged tomorrow if stable. Can resume Xarelto. The patient continues to be a nemic and does not respond to oral iron supplement, we will need Hematology evaluation and small-ally l evaluation with video capsule endoscopy.
[2018-01-19] MEDS: Iron Polysaccharides Complex 150 MG CAP PO SCH (20:13)
[2018-01-20] MEDS: Sodium Chloride 0.9% 1,000 ML IV SCH (02:51)
[2018-01-20 05:51] LABS: Anion Gap 11 mmol/L (10-20); BUN (Urea Nitrogen) 10 mg/dL (9.8-20.1); Calc. Creatinine Clearance 49 mL/min (70-130); Calcium 8.6 mg/dL (7.8-10.44); Carbon Dioxide 26 mmol/L (23-31); Chloride 98 mmol/L (98-107); Estimated GFR-MDRD 54; Glucose 86 mg/dL (83-110); Potassium 3.8 mmol/L (3.5-5.1); Sodium 131 mmol/L (136-145)
[2018-01-20 05:57] LABS: Band 6 % (5-11); Eosinophils 4 % (0-10); Lymphocytes 11 % (21-51); MDiff Complete? YES; Mean Corpuscular HGB CONC 31.7 g/dL (32.0-36.0); Mean Corpuscular Hemoglobin 23.6 pg (27.0-31.0); Mean Corpuscular Volume 74.4 fL (78.0-98.0); Mean Platelet Volume 6.8 fL (7.4-10.4); Monocytes 2 % (0-10); Myelocyte 1 % (0-0); Neutrophil 76 % (42-75); PLT Morphology Comment Appears Adequate; Platelet Count 389 thou/uL (130-400); RBC Distribution Width 17.7 % (11.5-14.5); Red Blood Cell (RBC) Count 2.98 mill/uL (4.20-5.40); White Blood Cell (WBC) Count 10.8 thou/uL (4.8-10.8)
[2018-01-20] MEDS ORDERED: Iron Sucrose Complex 200 MG in Sodium Chloride 0.9% 250 ML 250 ML IVPB SCH (08:15)
[2018-01-20] MEDS: Iron Polysaccharides Complex 150 MG CAP PO SCH ×2 (09:33→20:06)
[2018-01-20] MEDS: Digoxin 0.125 MG TAB PO SCH (09:33)
[2018-01-20] MEDS: Rivaroxaban 10 MG TAB PO SCH (09:34)
--- NOTE | 2018-01-20 13:43 | PRG ---
DATE OF SERVICE: 01/20/2018 SUBJECTIVE: The patient feels somewhat better. She denies any complaint. There is no nausea, vomit ing or abdominal pain. She is tolerating diet. PHYSICAL EXAMINATION: VITAL SIGNS: Temperature is 98.5, blood pressure 154/66, pulse of 83. GENERAL: She is alert, conversant, in no distress. HEENT: Shows anicteric sclerae. CARDIOVASCULAR: Shows normal S1, S2 regular rate and rhythm. CHEST: Shows normal breath sounds, no adventitious sounds. ABDOMEN: Soft. Mildly protuberant, but no distention, no tenderness. She has active bowel sounds. EXTREMITIES: Shows no edema. LABORATORY DATA: Hemoglobin of 7.0 after 1 unit RBC. MCV of 74. WBC is 10.8, platelet count of 389 . Sodium 131, potassium 3.8, chloride 98, CO2 26, creatinine 0.99, BUN of 10. ASSESSMENT: 1. Microcytic anemia suggestive of iron deficiency anemia. Negative EGD and colonoscopy. The patie nt received a second unit of RBCs this morning. No source of occult bleeding was identified on upper endoscopy and colonoscopy. 2. Hypertension. 3. Coronary artery disease. 4. Peripheral vascular disease. RECOMMENDATIONS: 1. The patient can be discharged tomorrow if her blood count improves after her second unit of RBC t ransfusion as anticipated. 2. Since her EGD and colonoscopy are negative, can resume Xarelto on discharge. 3. Continue with iron supplement. Of note, the patient has had chronic anemia in the past and had b een on iron in the past. 4. Outpatient monitor for blood count. If she continues to be anemic with no response to oral iron, then will evaluate small bowel for other enteric source of bleeding with capsule endoscopy.
[2018-01-20] MEDS: Atorvastatin Calcium 40 MG TAB PO SCH (20:06)
[2018-01-20] MEDS ORDERED: Non-Formulary Item 1 EACH (Atorvastatin Calcium [Lipitor] 80 MG) PO SCH (21:00)
--- NOTE | 2018-01-20 21:21 | PDOC.PN ---
- Subjective Encounter Start Date: 01/20/18 Encounter Start Time: 11:45 Subjective: pt up in bed no complains - Objective Resuscitation Status: Resuscitation Status FULL:Full Resuscitation Vital Signs & Weight: Vital Signs (12 hours) Temp Pulse Pulse Resp BP BP Pulse Ox 01/20/18 19:16 98.7 F 79 16 118/78 93 L 01/20/18 15:44 98.9 F 90 15 130/61 92 L 01/20/18 12:40 98.5 F 83 18 154/66 H 93 L 01/20/18 11:30 97.8 F 78 17 128/60 96 01/20/18 10:16 98.3 F 94 18 125/45 L 94 L 01/20/18 10:01 98.7 F 76 17 105/57 L 01/20/18 09:33 79 01/20/18 09:29 98.7 F 79 17 103/51 L 94 L Weight Weight 152 lb 8 oz I&O: 01/19/18 01/20/18 01/21/18 06:59 06:59 06:59 Intake Total 240 1099 1640 Output Total 200 Balance 240 1099 1440 Result Diagrams: 01/20/18 05:01 01/20/18 05:01 Phys Exam - Physical Examination HEENT: PERRLA, moist MMs, sclera anicteric, TM's clear, oral pharynx no lesions , 2+ tonsils Neck: no nodes, no JVD, supple, full ROM Respiratory: no wheezing, no rales, no rhonchi, wheezing present, clear to auscultation bilateral Cardiovascular: RRR, no significant murmur, no rub, gallop, irregular Gastrointestinal: soft, non-tender, no distention, positive bowel sounds Dx/Plan (1) Microcytic anemia Code(s): D50.9 - IRON DEFICIENCY ANEMIA, UNSPECIFIED Status: Acute (2) Generalized weakness Code(s): R53.1 - WEAKNESS Status: Acute (3) Afib Code(s): I48.91 - UNSPECIFIED ATRIAL FIBRILLATION Status: Acute - Plan will give iv iron -: egd/colonoscopy negative -: if hh continue to be low will need small bowel evaluation. -: may be hematology eval also. PT to evaluate pt for snf. ok to restart xarel * . Review of Systems - Review of Systems ENT: negative: Ear Pain, Ear Discharge, Nose Pain, Nose Discharge, Nose Congestion, Mouth Pain, Mouth Swelling, Throat Pain, Throat Swelling, Other Respiratory: negative: Cough, Dry, Shortness of Breath, Hemoptysis, SOB with Excertion, Pleuritic Pain, Sputum, Wheezing Cardiovascular: negative: chest pain, palpitations, orthopnea, paroxysmal nocturnal dyspnea, edema, light headedness, other Gastrointestinal: negative: Nausea, Vomiting, Abdominal Pain, Diarrhea, Constipation, Melena, Hematochezia, Other - Medications/Allergies Allergies/Adverse Reactions: Allergies Allergy/AdvReac Type Severity Reaction Status Date / Time Iodine and Iodide Containing Allergy Verified 01/18/18 23:50 Produc Medications: Current Medications Acetaminophen (Tylenol) 1,000 mg PO Q6H PRN PRN Reason: Headache/Fever or Mild Pain Atorvastatin Calcium (Lipitor) 80 mg PO HS [facility] Last Admin: 01/20/18 20:06 Dose: 80 mg Clonidine (Catapres) 0.1 mg PO Q4H PRN PRN Reason: Systolic BP > 180 Digoxin (Lanoxin) 0.125 mg PO DAILY [facility] Last Admin: 01/20/18 09:33 Dose: 0.125 mg Hydralazine HCl (Apresoline) 10 mg SLOW IVP Q4H PRN PRN Reason: Systolic BP > 180 Metoprolol Succinate (Toprol Xl) 25 mg PO DAILY [facility] Last Admin: 01/20/18 09:34 Dose: 25 mg Ondansetron HCl (Zofran Odt) 4 mg PO Q6H PRN PRN Reason: Nausea/Vomiting Ondansetron HCl (Zofran) 4 mg IVP Q6H PRN PRN Reason: Nausea/Vomiting Pantoprazole Sodium (Protonix) 40 mg PO DAILY [facility] Last Admin: 01/20/18 09:34 Dose: 40 mg Polysaccharide Iron Complex (Niferex) 150 mg PO BID [facility] Last Admin: 01/20/18 20:06 Dose: 150 mg Rivaroxaban (Xarelto) 10 mg PO DAILY [facility] Last Admin: 01/20/18 09:34 Dose: 10 mg Sodium Chloride (Flush - Normal Saline) 10 ml IVF Q12HR [facility] Last Admin: 01/20/18 20:08 Dose: 10 ml Sodium Chloride (Flush - Normal Saline) 10 ml IVF PRN PRN PRN Reason: Saline Flush
[2018-01-20] MEDS ORDERED: Sodium Ferric Gluconate 250 MG in Sodium Chloride 0.9% 250 ML 250 ML IVPB SCH (23:00)
[2018-01-20] MEDS: Acetaminophen 500 MG TAB PO PRN (23:29)
[2018-01-21 05:28] LABS: Hemoglobin 8.1 g/dL (12.0-16.0)
[2018-01-21] MEDS: Digoxin 0.125 MG TAB PO SCH (08:14)
[2018-01-21] MEDS: Iron Polysaccharides Complex 150 MG CAP PO SCH ×2 (08:14→20:00)
[2018-01-21] MEDS: Rivaroxaban 10 MG TAB PO SCH (08:14)
[2018-01-21] MEDS ORDERED: Iron Sucrose Complex 200 MG in Sodium Chloride 0.9% 250 ML 250 ML IVPB SCH (09:00)
[2018-01-21] MEDS ORDERED: Fluticasone Propionate Nasal Spray 16 gm Bottle NASAL PRN (15:51)
[2018-01-21] MEDS ORDERED: [UNRECOGNIZED DRUG - OTHER] PO PRN (15:57)
[2018-01-21] MEDS ORDERED: ACETAMINOPHEN PO PRN (15:57)
[2018-01-21] MEDS ORDERED: CHLORPHENIRAMINE PO PRN (15:57)
[2018-01-21] MEDS: Acetaminophen 500 MG TAB PO PRN ×2 (17:12→21:33)
--- NOTE | 2018-01-21 18:59 | PRG ---
DATE OF SERVICE: 01/21/2018 SUBJECTIVE: Mrs. Temple continues to feel better. She is able to ambulate up and down the rai to day, much better. She is eating without nausea, vomiting or abdominal pain. OBJECTIVE: VITAL SIGNS: Temperature is 98.1, blood pressure 119/54, pulse of 80. GENERAL: She is alert, conversant, in no distress. HEENT: Shows anicteric sclerae. CARDIOVASCULAR: Shows normal S1, S2 regular rate and rhythm. CHEST: Shows breath sounds. ABDOMEN: Soft, nontender. She has good bowel sounds. EXTREMITIES: Shows no edema. LABORATORY DATA: Hemoglobin of 8.1 after 2 units transfusion. Biopsy result of the 3 polyps remov ed were all adenomatous polyps. ASSESSMENT: 1. Symptomatic anemia, microcytic suggestive of iron deficiency. Much improved after 2 units of RBC transfusion. EGD/colonoscopy both negative. 2. History of anemia, previously on iron supplement. 3. Hypertension. 4. Coronary artery disease. 5. Peripheral vascular disease. RECOMMENDATIONS: 1. The patient can be discharged from GI standpoint at any time. 2. Can resume Xarelto since EGD and colonoscopy are both negative. 3. Should anemia does not improve on oral iron supplement in the future, we will consider small ally l evaluation capsule endoscopy and Hematology evaluation for IV iron transfusion. 4. We will sign off for now. Dr. Ashley is on-call for GI service this weekend, please call if n jennifer.
[2018-01-21] MEDS: Atorvastatin Calcium 40 MG TAB PO SCH (20:01)
[2018-01-22] MEDS: Acetaminophen 500 MG TAB PO PRN (02:35)
[2018-01-22] MEDS: Rivaroxaban 10 MG TAB PO SCH (09:30)
[2018-01-22] MEDS: Iron Polysaccharides Complex 150 MG CAP PO SCH (09:30)
[2018-01-22] MEDS: Digoxin 0.125 MG TAB PO SCH (09:30)
--- NOTE | 2018-01-22 10:25 | PDOC.PN ---
- Subjective Encounter Start Date: 01/21/18 Encounter Start Time: 11:00 Patient is seen today, is weak and lethargic, pt has GI bleed started on Xareltoi, no bleeding noted. Hb stbale. Plan to dischagre to SNF tomorrow if No drop in hb. - Objective Resuscitation Status: Resuscitation Status FULL:Full Resuscitation MAR Reviewed: Yes Vital Signs & Weight: Vital Signs (12 hours) Temp Pulse Resp BP Pulse Ox 01/22/18 09:30 89 01/22/18 08:00 98.1 F 89 16 133/65 90 L 01/22/18 03:31 98 F 89 17 130/60 92 L Weight Weight 152 lb 8 oz I&O: 01/21/18 01/22/18 01/23/18 06:59 06:59 06:59 Intake Total 1890 960 300 Output Total 400 760 Balance 1490 200 300 Result Diagrams: 01/21/18 05:03 01/20/18 05:01 Radiology Reviewed by me: Yes Phys Exam - Physical Examination HEENT: PERRLA, moist MMs Neck: no nodes, no JVD Respiratory: no wheezing, no rales Cardiovascular: RRR, no significant murmur Gastrointestinal: soft, non-tender Musculoskeletal: no edema, pulses present Neurological: non-focal, normal sensation Lymphatic: no nodes Dx/Plan (1) Afib Code(s): I48.91 - UNSPECIFIED ATRIAL FIBRILLATION Status: Acute Comment: continue on BB/ Carizem, rate controlled. (2) Generalized weakness Code(s): R53.1 - WEAKNESS Status: Acute Comment: likely from anemia from GI blod loss. [facility], Continue oral iron. (3) Microcytic anemia Code(s): D50.9 - IRON DEFICIENCY ANEMIA, UNSPECIFIED Status: Acute Comment: Iron defeicnecy, Continue oral iron. GI cleared her and restarted on oral Xarelto. (4) Acute on chronic diastolic CHF (congestive heart failure) Code(s): I50.33 - ACUTE ON CHRONIC DIASTOLIC (CONGESTIVE) HEART FAILURE Status : Acute Comment: ef 60% (5) Compression fracture of L3 lumbar vertebra Code(s): S32.030A - WEDGE COMPRESSION FRACTURE OF THIRD LUMBAR VERTEBRA, INIT Status: Acute Comment: Stable overall, pain control, PT evaluation, Calcitonin and Calcium supplementation (6) Hypokalemia Code(s): E87.6 - HYPOKALEMIA Status: Acute Comment: Mild, secondary to Lasix , KCL 40meq daily (7) CKD (chronic kidney disease), stage II Code(s): N18.2 - CHRONIC KIDNEY DISEASE, STAGE 2 (MILD) Status: Chronic Comment: Monitor renal function given diuretic therapy, avoid nephrotoxic meds and contrast media, serial BMP - Plan cont current plan of care, plan discussed w/ family, PT/OT, social worker palliative care, respiratory therapy, incentive spirometry, out of bed/ambulate, DVT proph w/SCDs * . Review of Systems - Review of Systems Constitutional: weakness, malaise Eyes: negative: Pain, Vision Change, Conjunctivae Inflammation, Eyelid Inflammation, Redness, Other ENT: negative: Ear Pain, Ear Discharge, Nose Pain, Nose Discharge, Nose Congestion, Mouth Pain, Mouth Swelling, Throat Pain, Throat Swelling, Other Respiratory: negative: Cough, Dry, Shortness of Breath, Hemoptysis, SOB with Excertion, Pleuritic Pain, Sputum, Wheezing Cardiovascular: negative: chest pain, palpitations, orthopnea, paroxysmal nocturnal dyspnea, edema, light headedness, other Gastrointestinal: negative: Nausea, Vomiting, Abdominal Pain, Diarrhea, Constipation, Melena, Hematochezia, Other Genitourinary: negative: Dysuria, Frequency, Incontinence, Hematuria, Retention , Other Skin: negative: Rash, Lesions, Joo, Bruising, Other - Medications/Allergies Allergies/Adverse Reactions: Allergies Allergy/AdvReac Type Severity Reaction Status Date / Time Iodine and Iodide Containing Allergy Verified 01/18/18 23:50 Produc Medications: Current Medications Acetaminophen (Tylenol) 1,000 mg PO Q6H PRN PRN Reason: Headache/Fever or Mild Pain Last Admin: 01/22/18 02:35 Dose: 1,000 mg Atorvastatin Calcium (Lipitor) 80 mg PO HS [facility] Last Admin: 01/21/18 20:01 Dose: 80 mg Clonidine (Catapres) 0.1 mg PO Q4H PRN PRN Reason: Systolic BP > 180 Digoxin (Lanoxin) 0.125 mg PO DAILY [facility] Last Admin: 01/22/18 09:30 Dose: 0.125 mg Fluticasone Propionate (Flonase Nasal [place]der) 0 gm NASAL BID PRN PRN Reason: Allergies Hydralazine HCl (Apresoline) 10 mg SLOW IVP Q4H PRN PRN Reason: Systolic BP > 180 Metoprolol Succinate (Toprol Xl) 25 mg PO DAILY [facility] Last Admin: 01/22/18 09:30 Dose: 25 mg Ondansetron HCl (Zofran Odt) 4 mg PO Q6H PRN PRN Reason: Nausea/Vomiting Ondansetron HCl (Zofran) 4 mg IVP Q6H PRN PRN Reason: Nausea/Vomiting Pantoprazole Sodium (Protonix) 40 mg PO DAILY [facility] Last Admin: 01/22/18 09:30 Dose: 40 mg Polysaccharide Iron Complex (Niferex) 150 mg PO BID [facility] Last Admin: 01/22/18 09:30 Dose: 150 mg Rivaroxaban (Xarelto) 10 mg PO DAILY [facility] Last Admin: 01/22/18 09:30 Dose: 10 mg Sodium Chloride (Flush - Normal Saline) 10 ml IVF Q12HR [facility] Last Admin: 01/22/18 09:30 Dose: 10 ml Sodium Chloride (Flush - Normal Saline) 10 ml IVF PRN PRN PRN Reason: Saline Flush
[2018-01-22 10:52] LABS: #Basophils 0.1 thou/uL (0.0-0.2); #Eosinphils 0.6 thou/uL (0.0-0.7); #Lymphocytes 0.8 thou/uL (1.20-3.40); #Monocytes 0.7 thou/uL (0.11-0.59); #Neutrophils 10.1 thou/uL (1.40-6.50); %Basophils 0.6 % (0.0-1.0); %Lymphocytes 6.1 % (21.0-51.0); %Neutrophils 82.3 % (42.0-75.0); Hemoglobin 8.9 g/dL (12.0-16.0); Mean Corpuscular HGB CONC 33.5 g/dL (32.0-36.0); Mean Corpuscular Hemoglobin 25.6 pg (27.0-31.0); Mean Corpuscular Volume 76.3 fL (78.0-98.0); Mean Platelet Volume 6.5 fL (7.4-10.4); Platelet Count 381 thou/uL (130-400); RBC Distribution Width 18.3 % (11.5-14.5); Red Blood Cell (RBC) Count 3.49 mill/uL (4.20-5.40); White Blood Cell (WBC) Count 12.3 thou/uL (4.8-10.8)
[2018-01-22 11:43] VITALS: TEMP 98
[2018-01-22 13:16] VITALS: BP 165/69
--- NOTE | 2018-01-22 17:49 | DIS ---
DATE OF ADMISSION: 01/18/2018 DATE OF DISCHARGE: 01/22/2018 ADMITTING DIAGNOSIS: Acute on chronic microcytic anemia secondary to suspected blood loss. DISCHARGE DIAGNOSIS: Acute on chronic microcytic anemia secondary to gastrointestinal bleed gastroi ntestinal loss. SECONDARY DIAGNOSES: 1. Chronic kidney disease stage 3. 2. Hypertension. 3. Hyperlipidemia. CONSULTANTS INVOLVED IN THE CARE: Dr. Yulissa Marquez. PROCEDURES DONE DURING THIS ADMISSION: 1. Two units of packed red blood cells. 2. EGD and colonoscopy which was unremarkable. HISTORY OF PRESENT ILLNESS AND HOSPITAL COURSE: In brief, this is an 82-year-old female who presente d to the [facility] with persistent symptoms of anemia and low hemoglobin of 6.1 . When patient came to the ER, she stated that she had intermittent blood in the stool, but no melen a, no obvious bleeding noted. Patient had a CT of the abdomen which did not show any evidence of alkeisha ors. GI was consulted and the patient was started on a PPI and was given 1 unit of blood transfusion which did bring back the hemoglobin to 7.1. Patient had both EGD which showed no evidence of any bl eeding ulcers and colonoscopy was done which had 3 colon polyps which were removed and sigmoid divert icula, but otherwise no evidence of any obvious bleeding source was noted. Patient was monitored for 2 days and she was on Xarelto, which was restarted and watched for any further bleeding as the patie nt did not have bleeding and her hemoglobin started going up. Patient was [facility] for further deconditioning. Patient was stable on the day of discharge. PHYSICAL EXAMINATION: On date of discharge. VITAL SIGNS: Blood pressure is 165/69, heart rate is 100, respiratory rate is 18, saturation 98%. CARDIOVASCULAR: S1, S2 normal. No murmurs, rubs or gallops. LUNGS: Bilateral air entry was equal. No wheezing, no crackles. ABDOMEN: Soft, nontender. No guarding or rebound tenderness. Bowel sounds are normal. MUSCULOSKELETAL: No calf tenderness. No pedal edema. No joint tenderness, no joint swelling. SKIN: No cyanosis, no erythema, no rash, no pallor. NEUROLOGIC: Cranial nerve examination intact. No focal deficits were noted. DISCHARGE MEDICATIONS: 1. Atorvastatin 80 mg p.o. daily. 2. Digoxin 0.125 mg p.o. daily. 3. Lasix 40 mg p.o. daily. 4. Metoprolol 25 mg p.o. daily. 5. Iron sulfate 150 mg p.o. b.i.d. 6. Pantoprazole 40 mg p.o. daily. 7. Potassium chloride. 8. Xarelto 10 mg p.o. daily. DISCHARGE INSTRUCTIONS: Continue activity as tolerated. Advised to follow up with her primary care physician in 1 week. Advised to follow up with GI in 1-2 weeks. Advised to continue on the iron med ications. Advised to continue on the Protonix. I spent 35 minutes with this patient on the day of discharge.
== END 2018-01-22 15:02 | DRG 811 ==
LOC: ERS 14:56 → 2NO 16:45
PROVIDERS: ADMIT Internal Medicine; ATTEND Internal Medicine
PROC: 30233N1 Transfusion of Nonautologous Red Blood Cells into Peripheral Vein, Percutaneous Approach (ICD-10-PCS; 2018-01-18)
PROC: 0DJ08ZZ Inspection of Upper Intestinal Tract, Via Natural or Artificial Opening Endoscopic (ICD-10-PCS; principal; 2018-01-19)
PROC: 0DBP8ZZ Excision of Rectum, Via Natural or Artificial Opening Endoscopic (ICD-10-PCS; 2018-01-19)
PROC: 0DBL8ZZ Excision of Transverse Colon, Via Natural or Artificial Opening Endoscopic (ICD-10-PCS; 2018-01-19)
PROC: 0DBN8ZZ Excision of Sigmoid Colon, Via Natural or Artificial Opening Endoscopic (ICD-10-PCS; 2018-01-19)
DX: D62 Acute posthemorrhagic anemia (principal); I50.33 Acute on chronic diastolic (congestive) heart failure; M48.56XA Collapsed vertebra, not elsewhere classified, lumbar region, initial encounter for fracture; I13.0 Hypertensive heart and chronic kidney disease with heart failure and stage 1 through stage 4 chronic kidney disease, or unspecified chronic kidney disease; E87.1 Hypo-osmolality and hyponatremia; I25.10 Atherosclerotic heart disease of native coronary artery without angina pectoris; I73.9 Peripheral vascular disease, unspecified; I48.91 Unspecified atrial fibrillation; E87.6 Hypokalemia; K57.30 Diverticulosis of large intestine without perforation or abscess without bleeding; Z82.49 Family history of ischemic heart disease and other diseases of the circulatory system; N18.3 Chronic kidney disease, stage 3 (moderate); Z95.1 Presence of aortocoronary bypass graft; Z95.0 Presence of cardiac pacemaker
CPT/HCPCS: 36415; 36430; 71045; 80048; 80053; 80162; 82553; 82728; 83540; 83550; 83735; 84484; 85007; 85014; 85018; 85025; 85027; 85610; 85730; 86850; 86900; 86901; 88305; 93005; 94760; 96374; A4216; C9113; G8978-GP-CN; G8979-GP-CK; J1756; J2001; J2704; J2916; J7050; P9016

== ENCOUNTER 2018-05-10 15:56 | Inpatient (IN) | payer MEDICARE, MEDICAID ==
--- NOTE | 2018-05-10 16:36 | RAD ---
UPRIGHT PORTABLE CHEST ONE VIEW: 05/10/18 HISTORY: 82-year-old female with history of chest pain for several days. Worse in the past hour and a half wit h some bilateral edema with radiation to left arm. COMPARISON: 01/18/18. FINDINGS: Bilateral vascular congestion with some bilateral pleural effusions. Small. Postop midline sternotomy . Left ICD. No overt confluent process. IMPRESSION: Minimal cardiomegaly with bilateral vascular congestion and small bilateral pleural effusions showing some progression from 01/18/18, although appearance may actually be slightly improved from an old 12/14 study. POS: [facility]
[2018-05-10 16:45] LABS: Mean Corpuscular Hemoglobin 21.9 pg (27.0-31.0); Mean Corpuscular Volume 73.1 fL (78.0-98.0); Mean Platelet Volume 10.1 fL (7.4-10.4); Platelet Count 307 thou/uL (130-400); RBC Distribution Width 18.2 % (11.5-14.5); Red Blood Cell (RBC) Count 4.57 mill/uL (4.20-5.40); White Blood Cell (WBC) Count 8.3 thou/uL (4.8-10.8)
[2018-05-10 16:54] LABS: INR-International Normal Ratio 2.9
[2018-05-10 16:55] LABS: PTT 58.4 SEC (22.9-36.1)
[2018-05-10 17:06] LABS: ALT (SGPT) 64 U/L (8-55); AST (SGOT) 82 U/L (5-34); Alkaline Phosphatase 122 U/L (40-150); Anion Gap 13 mmol/L (10-20); BUN (Urea Nitrogen) 39 mg/dL (9.8-20.1); Bilirubin, Total 1.1 mg/dL (0.2-1.2); CK (CPK) 440 U/L (29-168); Calc. Creatinine Clearance 0 mL/min (70-130); Calcium 8.9 mg/dL (7.8-10.44); Carbon Dioxide 29 mmol/L (23-31); Chloride 94 mmol/L (98-107); Estimated GFR-MDRD 23; Globulin 4.6 g/dL (2.4-3.5); Glucose 114 mg/dL (83-110); Lipase 58 U/L (8-78); Potassium 4.2 mmol/L (3.5-5.1); Protein, Total 7.6 g/dL (6.0-8.3); Sodium 132 mmol/L (136-145)
[2018-05-10 17:07] LABS: #Basophils 0.1 thou/uL (0.0-0.2); #Eosinphils 0.1 thou/uL (0.0-0.7); #Lymphocytes 0.6 thou/uL (1.20-3.40); #Monocytes 0.7 thou/uL (0.11-0.59); #Neutrophils 6.9 thou/uL (1.40-6.50); %Basophils 0.9 % (0.0-1.0); %Eosinophils 1.1 % (0.0-10.0); %Lymphocytes 7.3 % (21.0-51.0); %Monocytes 8.2 % (0.0-10.0); %Neutrophils 82.6 % (42.0-75.0); Acanthocytes SLIGHT = 1-5 cells (100X) (None Seen); Anisocytosis SLIGHT = 6-15 cells (100X) (0-5/hpf); Elliptocytes SLIGHT = 2-5 cells (100X) (0-1/hpf); Hypochromia SLIGHT = 6-15 cells (100X) (0-5/hpf); MDiff Complete? YES; Microcytosis SLIGHT = 6-15 cells (100X) (0-5/hpf); PLT Morphology Comment Appears Adequate
[2018-05-10 17:11] LABS: Troponin I 0.047 ng/mL (< 0.028)
[2018-05-10 18:00] LABS: Digoxin 0.67 ng/mL (0.8-2.0)
[2018-05-10] MEDS ORDERED: Furosemide 40 MG/4 ML VIAL ONE (18:18)
[2018-05-10 18:36] LABS: Bilirubin Negative (Negative); Blood, Urine Large (Negative); Clarity CLOUDY (Clear); Glucose, Urine (Dipstick) Negative (Negative); Leukocyte Moderate (Negative); Nitrite Negative (Negative); Protein, Urine (Dipstick) 100 mg/dL (Neg-Trace); Specific Gravity, Urine 1.013 (1.002-1.036)
[2018-05-10 18:38] LABS: Pathc Cast-AUWi Flag 2.32 (0-2.49); Squamous Epithelial 0-3 HPF (0-3); WBC/HPF 21-50 HPF (0-3)
[2018-05-10 18:41] LABS: Yeast-AUWi Flag 57.1 (0-25.0)
[2018-05-10 18:46] LABS: Bacteria/HPF 2+ HPF (None Seen); Hyaline Casts/LPF 4-6 HYALINE CAST LPF (0-3 Hyaline); Yeast-All Forms None Seen HPF (None Seen)
[2018-05-10] MEDS ORDERED: Ondansetron ODT 4 MG TAB SL PRN (19:53)
[2018-05-10] MEDS ORDERED: Ondansetron PF 4 MG/2 ML Vial IVP PRN (19:53)
[2018-05-10] MEDS ORDERED: cloNIDine 0.1 MG TAB PO PRN (21:49)
[2018-05-10] MEDS ORDERED: hydrALAZINE 20 MG/ML VIAL SLOW IVP PRN (21:49)
[2018-05-10] MEDS ORDERED: Ondansetron ODT 4 MG TAB PO PRN (21:49)
[2018-05-10] MEDS ORDERED: Acetaminophen 500 MG TAB PO PRN (21:49)
[2018-05-10] MEDS ORDERED: Furosemide 40 MG/4 ML VIAL SLOW IVP SCH (22:00)
[2018-05-10] MEDS: cefTRIAXone\\ROCEPHIN 1 GM in Sodium Chloride 0.9% 100 ML IVPB SCH (23:53)
[2018-05-10] MEDS: Melatonin 3 MG TAB PO PRN (23:54)
[2018-05-11] LABS: Troponin I 0.049 ng/mL (< 0.028)
[2018-05-11 00:07] LABS: CKMB 6.9 ng/mL (0-6.6); Critical Call CKMBM RESULT DECREASING
--- NOTE | 2018-05-11 03:22 | HP ---
DATE OF ADMISSION: 05/10/2018 PRIMARY CARE PROVIDER: Dr. Yamini Ibarra. CHIEF COMPLAINT: Shortness of breath and lower extremity swelling. HISTORY OF PRESENT ILLNESS: This is an 82-year-old female who presents to [facility] Emergency Department in transfer from [facility] in [place], [place] where patient is a curr ent resident complaining of left-sided chest pain, shortness of breath and increasing lower extremity swelling. The patient noted pain in her left chest wall radiating to her left arm approximately 2 d ays prior to this evaluation. The patient states she takes a diuretic on a regular basis and has bee n compliant with this regimen. The patient denied any specific fever, chills, increased cough, conge stion, orthopnea. The patient states she has had limited mobility at [facility] due to increas ing swelling of her lower extremities, making it more difficult to mobilize. The patient denied any recent fall or direct injury. The patient does state that she underwent recent cardiac ablation on 08/2017 secondary to paroxysmal atrial fibrillation. In the emergency room, the patient underwent gen eral evaluation including chest imaging showing bilateral pulmonary edema and elevated BNP of 2900. The patient received IV Lasix 40 mg x1 dose and was transferred to the telemetry unit for further sabrina luation. PAST MEDICAL HISTORY: 1. Atrial fibrillation with current pacemaker, on chronic anticoagulation with Xarelto. 2. Acute on chronic normocytic anemia. 3. Carotid artery disease. 4. Peripheral vascular disease. 5. Coronary artery disease. 6. Deconditioning. PAST SURGICAL HISTORY: 1. Status post left carotid endarterectomy. 2. Status post stent placement to left lower extremity. 3. Status post coronary artery bypass grafting x4 vessels. 4. Status post EGD/colonoscopy. CURRENT MEDICATIONS: 1. Enteric coated aspirin 81 mg p.o. daily. 2. Lipitor 80 mg p.o. at bedtime. 3. Digoxin 0.125 mg p.o. daily. 4. Lasix 40 mg p.o. daily. 5. Galantamine 12 mg p.o. b.i.d. 6. Metoprolol succinate 25 mg p.o. daily. 7. Protonix 40 mg p.o. daily. 8. Klor-Con 10 mEq p.o. daily. 9. Xarelto 10 mg p.o. daily. 10. Niferex 150 mg p.o. b.i.d. ALLERGIES: IODINE. FAMILY HISTORY: Positive for coronary artery disease. SOCIAL HISTORY: Patient resides in [place], [place] at [facility] over the last 4 months. Wido wed. No current alcohol, tobacco or illicit drug use. Ambulatory with use of a rolling walker. REVIEW OF SYSTEMS: The following complete review of systems was negative, unless otherwise mentioned in the HPI or below: Constitutional: Weight loss or gain, ability to conduct usual activities. Skin: Rash, itching. Eyes: Double vision, pain. ENT/Mouth: Nose bleeding, neck stiffness, pain, tenderness. Cardiovascular: Palpitations, dyspnea on exertion, orthopnea. Respiratory: Shortness of breath, wheezing, cough, hemoptysis, fever or night sweats. Gastrointestinal: Poor appetite, abdominal pain, heartburn, nausea, vomiting, constipation, or diarr hea. Genitourinary: Urgency, frequency, dysuria, nocturia. Musculoskeletal: Pain, swelling. Neurologic/Psychiatric: Anxiety, depression. Allergy/Immunologic: Skin rash, bleeding tendency. Otherwise negative except as stated per HPI. PHYSICAL EXAMINATION: VITAL SIGNS: Currently, blood pressure 126/69, pulse 92, respiratory rate 20, temperature 97.7 degre es Fahrenheit, O2 saturation 99% on 2 liters per minute by nasal cannula. GENERAL APPEARANCE: This is an 82-year-old female, alert and oriented x3, pleasant, respon sive, in no acute distress. HEENT: Pupils are equal, round, and reactive to light and accommodation. Extraocular muscles are in tact. No scleral icterus, no conjunctival injection. Nares patent. OP is clear. Teeth in fair rep air. NECK: Supple, no cervical adenopathy, no thyromegaly, no carotid bruits, no JVD noted. Cervical spi ne with full active and passive range of motion. No meningeal signs noted. CHEST: Coarse breath sounds with crackles in the bases. CARDIOVASCULAR: S1, S2 with tachycardia, 1-2/6 systolic ejection murmur in the left upper sternal dannielle rder. ABDOMEN: Rounded, soft, nontender, nondistended. Bowel sounds are positive in all four quadrants. There is no hepatosplenomegaly, no abdominal bruits, no rebound or guarding appreciated. EXTREMITIES: Warm and dry with fair turgor. Pitting edema to the knees bilaterally. Pulses palpabl e distally at the dorsalis pedis, posterior tibial, and popliteal arteries bilaterally. Capillary re fill less than 2 seconds. NEUROLOGIC: Cranial nerves II-XII are grossly intact. No focal or lateralizing signs noted. The pa tient not observed ambulatory during this exam. PERTINENT LABORATORY DATA AND X-RAY FINDINGS: Sodium 132, potassium 4.2, chloride 94, CO2 of 29, BUN 39, creatinine 2.09, estimated GFR 23, glucose 114, calcium 8.9, AST 82, ALT of 64, alkaline phospha tase 122. Total CK 440. Troponin I ranged between 0.047-0.050. BNP 2890, previously noted 964 on 0 01/15/2018, lipase 58. CBC showed a white blood cell count of 8.3, hemoglobin 10, hematocrit 33, MCV 73, platelet count 307 with 83% neutrophils. PT 30.0, INR 2.9, PTT 58.4. Urinalysis positive for bl ood and leukocyte esterase, 21-50 WBCs per high power field. Digoxin level 0.67. Portable chest x-r ay dated 05/10/2018 showed bilateral pulmonary edema with small bilateral pleural effusions. EKG mariza ed 05/10/2018 by my interpretation shows a paced rhythm, heart rates in the 90s. Normal R-wave progr ession noted. No acute ST-T wave changes noted. ASSESSMENT AND PLAN: 1. Acute on chronic diastolic congestive heart failure exacerbation. The patient will be admitted t o the telemetry unit. We will continue Lasix 40 mg IV b.i.d. Check 2D transthoracic echocardiogram for accurate ejection fraction. Monitor strict I's and O's and daily weights. Continue trending car diac biomarkers. Repeat BNP in the a.m. 2. Urinary tract infection. Suspected given initial urinalysis. We will continue Rocephin 1 gram I V q.24 hours. Urine culture pending. 3. Acute kidney injury on chronic kidney disease stage 3. Avoid nephrotoxic agents and limit contra st exposure. Repeat creatinine in the a.m. 4. Elevated troponin I. Suspect secondary to demand ischemia in the context of #1. We will continu e trending cardiac biomarkers. Consider Cardiology evaluation. 5. Transaminitis. Suspect secondarily to volume overload and hepatic congestion. We will continue serial LFT monitoring. 6. Chronic anticoagulation. Resume Xarelto 10 mg p.o. daily. Serial CBC monitoring. 7. Deconditioning. Consult PT Service for functional assessment in the a.m. General fall risk prec autions. 8. Prophylaxis. Sequential compression devices held due to increased lower extremity edema. Loveno x 30 mg subcutaneously q.24 hours. 9. Code status is DO NOT RESUSCITATE confirmed by the patient. Surrogate medical decision maker is patient's son.
[2018-05-11 05:33] LABS: Anion Gap 14 mmol/L (10-20); BUN (Urea Nitrogen) 40 mg/dL (9.8-20.1); Calc. Creatinine Clearance 25 mL/min (70-130); Calcium 9.1 mg/dL (7.8-10.44); Carbon Dioxide 31 mmol/L (23-31); Chloride 94 mmol/L (98-107); Estimated GFR-MDRD 25; Glucose 112 mg/dL (83-110); Magnesium 1.8 mg/dL (1.6-2.6); Potassium 4.1 mmol/L (3.5-5.1); Sodium 135 mmol/L (136-145)
[2018-05-11 05:52] LABS: Band 8 % (5-11); Hemoglobin 9.9 g/dL (12.0-16.0); Lymphocytes 7 % (21-51); MDiff Complete? YES; Mean Corpuscular HGB CONC 29.1 g/dL (32.0-36.0); Mean Corpuscular Hemoglobin 21.3 pg (27.0-31.0); Mean Platelet Volume 10.2 fL (7.4-10.4); Monocytes 6 % (0-10); Neutrophil 79 % (42-75); Platelet Count 296 thou/uL (130-400); RBC Distribution Width 18.5 % (11.5-14.5); Red Blood Cell (RBC) Count 4.67 mill/uL (4.20-5.40); White Blood Cell (WBC) Count 7.6 thou/uL (4.8-10.8)
[2018-05-11] MEDS: Furosemide 40 MG/4 ML VIAL SLOW IVP SCH ×2 (05:55→14:20)
[2018-05-11] MEDS ORDERED: Enoxaparin Sodium 30 MG/0.3 ML SYRINGE SC SCH (09:00)
[2018-05-11] MEDS: Famotidine 20 MG TAB PO SCH (09:56)
--- NOTE | 2018-05-11 16:17 | PDOC.PN ---
- Subjective Encounter Start Date: 05/11/18 Encounter Start Time: 11:15 Subjective: f/u for CHF exacerbation on IV Lasix. States feeling better and -: weight down 2lbs in last 24h. - Objective Resuscitation Status: Resuscitation Status DNR:Do Not Resuscitate MAR Reviewed: Yes Vital Signs & Weight: Vital Signs (12 hours) Temp Pulse Pulse Pulse Resp BP BP 05/11/18 15:12 97.5 F L 80 18 05/11/18 11:32 97.6 F 78 18 05/11/18 10:19 78 95 128/62 119/85 05/11/18 08:03 97.6 F 85 18 05/11/18 08:00 BP BP Pulse Ox 05/11/18 15:12 127/59 L 95 05/11/18 11:32 127/65 94 L 05/11/18 10:19 05/11/18 08:03 126/94 H 95 05/11/18 08:00 95 Weight Admit Weight 156 lb 12.8 oz Weight 154 lb 4.8 oz I&O: 05/10/18 05/11/18 05/12/18 06:59 06:59 06:59 Intake Total 300 Output Total 300 Balance 0 Result Diagrams: 05/11/18 04:56 05/11/18 04:56 Additional Labs: Laboratory Tests 03/09/17 03/10/17 05/10/18 19:38 04:18 16:36 Sodium 132 L Creatinine 2.09 H Creatine Kinase 440 H B-Natriuretic Peptide 965.5 H 1202.2 H 05/10/18 05/11/18 16:36 04:56 Sodium Creatinine Creatine Kinase B-Natriuretic Peptide 2890.0 H 2907.2 H Phys Exam - Physical Examination Constitutional: NAD HEENT: PERRLA, sclera anicteric, oral pharynx no lesions Neck: no nodes, no JVD, supple, full ROM bibasilar crackles Respiratory: no wheezing S1, S2 Cardiovascular: RRR, no significant murmur, no rub, gallop Gastrointestinal: soft, non-tender, no distention, positive bowel sounds Musculoskeletal: pulses present, edema present Neurological: normal sensation, moves all 4 limbs Psychiatric: normal affect, A&O x 3 Skin: normal turgor, cap refill <2 seconds Dx/Plan (1) Acute on chronic diastolic CHF (congestive heart failure) Code(s): I50.33 - ACUTE ON CHRONIC DIASTOLIC (CONGESTIVE) HEART FAILURE Status : Acute Comment: EF 55%, continue Lasix 40mg IV BID, daily weights, I/O's, 2D echo pending (2) UTI (urinary tract infection) Status: Acute Comment: Suspected given initial UA, continue Rocephin and monitor Ucx results (3) VERENICE (acute kidney injury) Code(s): N17.9 - ACUTE KIDNEY FAILURE, UNSPECIFIED Status: Acute Comment: Improved, avoid nephrotoxic meds and limit contrast exposure, serial creatinine (4) Elevated troponin I level Code(s): R74.8 - ABNORMAL LEVELS OF OTHER SERUM ENZYMES Status: Acute Comment: Demand ischemia in context of #1, see above for mgmt (5) Chronic anticoagulation Code(s): Z79.01 - LABORATORY DIRECTOR (CURRENT) USE OF ANTICOAGULANTS Status: Chronic Comment: Continue home regimen (6) Transaminitis Code(s): R74.0 - NONSPEC ELEV OF LEVELS OF TRANSAMNS & LACTIC ACID DEHYDRGNSE Status: Acute Comment: Likely due to #1, serial monitoring - Plan continue antibiotics, PT/OT, social media director, out of bed/ambulate Continue Lasix 40mg IV BID -: Resume Xarelto 10mg daily -: KCL replacement -: Continue Rocephin IV -: AM lab: CMP * .
[2018-05-11] MEDS ORDERED: Melatonin 3 MG TAB PO PRN (16:28)
[2018-05-11] MEDS ORDERED: Albuterol Sulfate 2.5 mg/3 ml Neb NEB PRN (16:28)
[2018-05-11] MEDS ORDERED: Digoxin 0.125 MG TAB PO SCH (16:30)
[2018-05-11] MEDS: Atorvastatin Calcium 40 MG TAB PO SCH (22:15)
[2018-05-11] MEDS: cefTRIAXone\\ROCEPHIN 1 GM in Sodium Chloride 0.9% 100 ML IVPB SCH (22:15)
[2018-05-11] MEDS: Iron Polysaccharides Complex 150 MG CAP PO SCH (22:15)
[2018-05-11] MEDS: Ondansetron PF 4 MG/2 ML Vial IVP PRN (23:02)
[2018-05-12 05:16] LABS: ALT (SGPT) 64 U/L (8-55); AST (SGOT) 69 U/L (5-34); Alkaline Phosphatase 119 U/L (40-150); Anion Gap 14 mmol/L (10-20); BUN (Urea Nitrogen) 40 mg/dL (9.8-20.1); Bilirubin, Total 1.1 mg/dL (0.2-1.2); Calc. Creatinine Clearance 28 mL/min (70-130); Calcium 9.3 mg/dL (7.8-10.44); Carbon Dioxide 30 mmol/L (23-31); Chloride 94 mmol/L (98-107); Estimated GFR-MDRD 28; Globulin 4.5 g/dL (2.4-3.5); Glucose 117 mg/dL (83-110); Potassium 3.6 mmol/L (3.5-5.1); Protein, Total 7.5 g/dL (6.0-8.3); Sodium 134 mmol/L (136-145)
[2018-05-12] MEDS: Furosemide 40 MG/4 ML VIAL SLOW IVP SCH ×2 (06:04→13:48)
[2018-05-12] MEDS: Famotidine 20 MG TAB PO SCH (10:07)
[2018-05-12] MEDS: Iron Polysaccharides Complex 150 MG CAP PO SCH ×2 (10:08→21:24)
[2018-05-12] MEDS: Rivaroxaban 10 MG TAB PO SCH (10:09)
[2018-05-12] MEDS: Potassium Chloride 20 MEQ TAB PO SCH (10:09)
[2018-05-12] MEDS: Multivitamin W/ Minerals 1 TAB PO SCH (10:09)
[2018-05-12] MEDS: Nystatin Powder 15 GM BOT TOP PRN (13:57)
[2018-05-12] MEDS ORDERED: Phenazopyridine HCl 97.5 MG TABLET PO SCH (16:45)
[2018-05-12] MEDS ORDERED: Ketorolac Tromethamine 30 MG/ML VIAL IVP SCH (16:45)
--- NOTE | 2018-05-12 17:25 | PDOC.PN ---
- Subjective Encounter Start Date: 05/12/18 Encounter Start Time: 17:05 Subjective: f/u for CHF on IV Lasix. Still voiding regularly but has dysuria. -: Receiving Rocephin for suspected UTI. No dyspnea or fever. - Objective Resuscitation Status: Resuscitation Status DNR:Do Not Resuscitate MAR Reviewed: Yes Vital Signs & Weight: Vital Signs (12 hours) Temp Pulse Resp BP Pulse Ox 05/12/18 16:47 97.3 F L 77 18 125/60 97 05/12/18 12:00 97.5 F L 76 18 126/67 98 05/12/18 08:28 97.5 F L 74 18 141/64 H 98 05/12/18 08:00 98 Weight Admit Weight 156 lb 12.8 oz Weight 154 lb 3 oz I&O: 05/11/18 05/12/18 05/13/18 06:59 06:59 06:59 Intake Total 300 720 Output Total 300 Balance 0 720 Result Diagrams: 05/11/18 04:56 05/12/18 04:24 Additional Labs: Laboratory Tests 03/09/17 03/10/17 05/10/18 19:38 04:18 16:36 Sodium 132 L Creatinine 2.09 H Creatine Kinase 440 H B-Natriuretic Peptide 965.5 H 1202.2 H 05/10/18 05/11/18 16:36 04:56 Sodium Creatinine Creatine Kinase B-Natriuretic Peptide 2890.0 H 2907.2 H EKG Reviewed by me: Yes (Tele - V-paced) Phys Exam - Physical Examination Constitutional: NAD HEENT: PERRLA, sclera anicteric, oral pharynx no lesions Neck: no nodes, no JVD, supple, full ROM few basilar crackles Respiratory: no wheezing, no rhonchi, clear to auscultation bilateral S1, S2 Cardiovascular: RRR, no significant murmur, no rub, gallop Gastrointestinal: soft, non-tender, no distention, positive bowel sounds Musculoskeletal: pulses present, edema present Neurological: normal sensation, moves all 4 limbs Psychiatric: A&O x 3 Skin: no rash, normal turgor, cap refill <2 seconds Dx/Plan (1) Acute on chronic diastolic CHF (congestive heart failure) Code(s): I50.33 - ACUTE ON CHRONIC DIASTOLIC (CONGESTIVE) HEART FAILURE Status : Acute Comment: EF 55%, continue Lasix 40mg IV BID, daily weights, I/O's, 2D echo pending (2) UTI (urinary tract infection) Status: Acute Comment: Suspected given initial UA, continue Rocephin and monitor Ucx results (3) VERENICE (acute kidney injury) Code(s): N17.9 - ACUTE KIDNEY FAILURE, UNSPECIFIED Status: Acute Comment: Improved, avoid nephrotoxic meds and limit contrast exposure, serial creatinine (4) Elevated troponin I level Code(s): R74.8 - ABNORMAL LEVELS OF OTHER SERUM ENZYMES Status: Acute Comment: Demand ischemia in context of #1, see above for mgmt (5) Chronic anticoagulation Code(s): Z79.01 - [facility] (CURRENT) USE OF ANTICOAGULANTS Status: Chronic Comment: Continue home regimen (6) Transaminitis Code(s): R74.0 - NONSPEC ELEV OF LEVELS OF TRANSAMNS & LACTIC ACID DEHYDRGNSE Status: Acute Comment: Likely due to #1, serial monitoring - Plan continue antibiotics, PT/OT, oncology social worker, out of bed/ambulate Stable overall -: Continue Lasix 40mg IV BID -: Continue Rocephin 1gm IV daily -: 2D echo pending -: PT for ambulation * AM lab: BMP
[2018-05-12] MEDS: Digoxin 0.125 MG TAB PO SCH (17:33)
[2018-05-12] MEDS: cefTRIAXone\\ROCEPHIN 1 GM in Sodium Chloride 0.9% 100 ML IVPB SCH (21:20)
[2018-05-12] MEDS: Phenazopyridine HCl 97.5 MG TABLET PO SCH (21:21)
[2018-05-12] MEDS: Atorvastatin Calcium 40 MG TAB PO SCH (21:21)
[2018-05-12 22:15] LABS: Hemoglobin 9.6 g/dL (12.0-16.0); Platelet Count 272 thou/uL (130-400)
[2018-05-12] MEDS: Ondansetron PF 4 MG/2 ML Vial IVP PRN (22:19)
[2018-05-12] MEDS: Melatonin 3 MG TAB PO PRN (22:19)
[2018-05-13 05:30] LABS: Anion Gap 13 mmol/L (10-20); BUN (Urea Nitrogen) 39 mg/dL (9.8-20.1); Calc. Creatinine Clearance 27 mL/min (70-130); Calcium 8.8 mg/dL (7.8-10.44); Carbon Dioxide 29 mmol/L (23-31); Chloride 93 mmol/L (98-107); Estimated GFR-MDRD 27; Glucose 99 mg/dL (83-110); Potassium 3.8 mmol/L (3.5-5.1); Sodium 131 mmol/L (136-145)
[2018-05-13] MEDS: Furosemide 40 MG/4 ML VIAL SLOW IVP SCH ×2 (05:46→14:03)
[2018-05-13] MEDS: Famotidine 20 MG TAB PO SCH (09:06)
[2018-05-13] MEDS: Iron Polysaccharides Complex 150 MG CAP PO SCH ×2 (09:07→22:18)
[2018-05-13] MEDS: Multivitamin W/ Minerals 1 TAB PO SCH (09:07)
[2018-05-13] MEDS: Phenazopyridine HCl 97.5 MG TABLET PO SCH ×2 (09:08→14:03)
[2018-05-13] MEDS: Potassium Chloride 20 MEQ TAB PO SCH (09:08)
[2018-05-13] MEDS: Rivaroxaban 10 MG TAB PO SCH (09:08)
--- NOTE | 2018-05-13 13:22 | PDOC.PN ---
- Subjective Encounter Start Date: 05/13/18 Encounter Start Time: 13:15 Subjective: f/u for systolic CHF on current IV Lasix. Overall feels better today. Less -: swelling feet. - Objective Resuscitation Status: Resuscitation Status FULL:Full Resuscitation MAR Reviewed: Yes Vital Signs & Weight: Vital Signs (12 hours) Temp Pulse Resp BP Pulse Ox 05/13/18 11:26 97.9 F 77 18 125/70 100 05/13/18 07:49 97.3 F L 84 16 144/64 H 100 05/13/18 05:41 99 05/13/18 03:49 96.3 F L 79 17 135/65 99 Weight Admit Weight 156 lb 12.8 oz Weight 153 lb 1 oz I&O: 05/12/18 05/13/18 05/14/18 06:59 06:59 06:59 Intake Total 720 1360 Output Total 1500 Balance 720 -140 Result Diagrams: 05/12/18 21:56 05/13/18 04:41 Additional Labs: Laboratory Tests 03/09/17 03/10/17 05/10/18 19:38 04:18 16:36 Sodium 132 L Creatinine 2.09 H Creatine Kinase 440 H B-Natriuretic Peptide 965.5 H 1202.2 H 05/10/18 05/11/18 16:36 04:56 Sodium Creatinine Creatine Kinase B-Natriuretic Peptide 2890.0 H 2907.2 H Radiology Reviewed by me: Yes (Echo - EF 25% down from previous 55%(02/25)) EKG Reviewed by me: Yes (Tele - V-paced in 80's) Phys Exam - Physical Examination Constitutional: NAD HEENT: PERRLA, sclera anicteric, oral pharynx no lesions Neck: no nodes, no JVD, supple, full ROM Respiratory: no wheezing, no rales, no rhonchi, clear to auscultation bilateral S1, S2, II/ MIKI in RUSB Cardiovascular: RRR Gastrointestinal: soft, non-tender, no distention, positive bowel sounds decreased edema in LE's Musculoskeletal: pulses present, edema present Neurological: normal sensation, moves all 4 limbs Psychiatric: A&O x 3 Skin: normal turgor, cap refill <2 seconds Dx/Plan (1) Acute systolic (congestive) heart failure Code(s): I50.21 - ACUTE SYSTOLIC (CONGESTIVE) HEART FAILURE Status: Acute Comment: EF 20-25% previously 50-55% (02/2017), continue Lasix 40mg IV BID, ASA, Lipitor, consult Cardiology service (2) UTI (urinary tract infection) Status: Acute Comment: Suspected given initial UA, continue Rocephin and monitor Ucx results (3) VERENICE (acute kidney injury) Code(s): N17.9 - ACUTE KIDNEY FAILURE, UNSPECIFIED Status: Acute Comment: Improved, avoid nephrotoxic meds and limit contrast exposure, serial creatinine (4) Elevated troponin I level Code(s): R74.8 - ABNORMAL LEVELS OF OTHER SERUM ENZYMES Status: Acute Comment: Demand ischemia in context of #1, see above for mgmt (5) Chronic anticoagulation Code(s): Z79.01 - RESIDENTIAL (CURRENT) USE OF ANTICOAGULANTS Status: Chronic Comment: Continue home regimen (6) Transaminitis Code(s): R74.0 - NONSPEC ELEV OF LEVELS OF TRANSAMNS & LACTIC ACID DEHYDRGNSE Status: Acute Comment: Likely due to #1, serial monitoring - Plan continue antibiotics, PT/OT, child welfare social worker, out of bed/ambulate Stable currently -: Continue Lasix 40mg IV BID -: Consult Cardiology service regarding worsening EF -: Continue KCL 20meq daily -: AM Lab: BMP * .
[2018-05-13] MEDS: Melatonin 3 MG TAB PO PRN (22:15)
[2018-05-13] MEDS: Atorvastatin Calcium 40 MG TAB PO SCH (22:15)
[2018-05-13] MEDS: cefTRIAXone\\ROCEPHIN 1 GM in Sodium Chloride 0.9% 100 ML IVPB SCH (22:18)
[2018-05-13] MEDS: Nystatin Powder 15 GM BOT TOP PRN (22:27)
[2018-05-14 04:57] LABS: Anion Gap 16 mmol/L (10-20); BUN (Urea Nitrogen) 39 mg/dL (9.8-20.1); Calc. Creatinine Clearance 27 mL/min (70-130); Calcium 8.6 mg/dL (7.8-10.44); Carbon Dioxide 26 mmol/L (23-31); Chloride 92 mmol/L (98-107); Estimated GFR-MDRD 27; Glucose 101 mg/dL (83-110); Potassium 3.7 mmol/L (3.5-5.1); Sodium 130 mmol/L (136-145)
[2018-05-14] MEDS: Furosemide 40 MG/4 ML VIAL SLOW IVP SCH ×2 (06:07→13:38)
[2018-05-14] MEDS: Potassium Chloride 20 MEQ TAB PO SCH (08:41)
[2018-05-14] MEDS: Phenazopyridine HCl 97.5 MG TABLET PO SCH (08:41)
[2018-05-14] MEDS: Iron Polysaccharides Complex 150 MG CAP PO SCH ×2 (08:42→21:00)
[2018-05-14] MEDS: Multivitamin W/ Minerals 1 TAB PO SCH (08:42)
[2018-05-14] MEDS: Famotidine 20 MG TAB PO SCH (08:42)
[2018-05-14] MEDS: Rivaroxaban 10 MG TAB PO SCH (08:42)
--- NOTE | 2018-05-14 12:06 | CON ---
DATE OF CONSULTATION: 05/14/2018 REASON FOR CONSULTATION: Shortness of breath and new onset congestive heart failure. PRIMARY REPORT ANALYST: Dr. Aayna Houston. HISTORY OF PRESENT ILLNESS: Ms. Temple is a very pleasant 82-year-old woman with history of issa ry artery disease, status post pacemaker placement, who recently was admitted for lower extremity misael ma and shortness of breath. She currently resides at the [facility]. She did have a chest p ain present to her left arm, but was not associated with her shortness of breath. She states her ronnie rtness of breath has been over the last several days. She also has a previous history of atrial fibr illation ablation. Her last echo dated 2016 showed LVEF of 50%-55%. Her most recent echo dated 05/11/2018 showed LVEF o f 20%-25% with mild to moderate aortic stenosis with mean and peak gradient in the 26 and 12 respecti vely. This may be underestimated. PAST MEDICAL AND SURGICAL HISTORY: Carotid disease, anemia, CAD, atrial fibrillation, status post pa cemaker placement, carotid endarterectomy, PVD with stent placement to the lower extremity, CAD statu s post CABG, EGD. MEDICATIONS: Include aspirin, Lipitor, Lasix, , digoxin, metoprolol, Protonix, Klor-Con, Xarelt o and Niferex. ALLERGIES: IODINE. SOCIAL HISTORY: No current tobacco or alcohol use. REVIEW OF SYSTEMS: Ten-point review of systems is reviewed as above, otherwise negative. PHYSICAL EXAMINATION: GENERAL: Patient is a pleasant female who is in no acute distress. The patient appears her stated a ge. NEUROLOGIC: The patient is alert and oriented times 3 with no focal neurologic deficits. HEENT: Sclerae without icterus. Mouth has moist mucous membranes with normal pallor. NECK: No JVD. Carotid upstroke brisk. No bruits bilaterally. LUNGS: Crackles noted bilaterally. BACK: No scoliosis or kyphosis. CARDIAC: Regular rate and rhythm with normal S1 and S2. No S3 or S4 noted. No significant rubs, mu rmurs, thrills, or gallops noted throughout the precordium. PMI is not displaced. There is no tori ternal heave. ABDOMEN: Soft, nontender, nondistended. No peritoneal signs present. No hepatosplenomegaly. No ab normal striae. EXTREMITIES: 2+ femoral and 2+ dorsalis pedis pulses. No cyanosis, clubbing. 2+ pitting edema. SKIN: No gross abnormalities. PERTINENT LABORATORY DATA: Hemoglobin 9.6, creatinine 1.78 with a GFR of 27. Sodium 130. IMPRESSION: 1. New onset systolic heart failure. 2. Atrial fibrillation. 3. Status post pacemaker placement. 4. Chronic anemia. 5. Chronic kidney disease stage 4. RECOMMENDATIONS: It is certainly a difficult situation given comorbidities. First and foremost, we would recommend continued diuresis. Her BNP is elevated at 2907. There is a concern with low LVEF w hen compared to her last echo. She has not had an echo performed in the office. This may be a pacer mediated, but may also be due to underlying coronary artery disease. I would recommend a noninvasiv e stress study during her hospitalization given the comorbidities to assess for areas of ischemia and reassess her LVEF.
--- NOTE | 2018-05-14 12:09 | PDOC.PN ---
- Subjective Encounter Start Date: 05/14/18 Encounter Start Time: 07:40 Pt seen for followup re: acute systolic CHF exacerbation. Denies chest pain, shortness of breath, fevers or chills. - Objective Resuscitation Status: Resuscitation Status FULL:Full Resuscitation MAR Reviewed: Yes Vital Signs & Weight: Vital Signs (12 hours) Temp Pulse Resp BP BP Pulse Ox 05/14/18 11:40 97.8 F 77 16 124/61 99 05/14/18 08:46 96.8 F L 05/14/18 08:00 100 05/14/18 07:54 76 18 124/75 100 05/14/18 04:00 97.6 F 87 19 136/58 L 97 Weight Admit Weight 156 lb 12.8 oz Weight 156 lb 9.6 oz I&O: 05/13/18 05/14/18 05/15/18 06:59 06:59 05:59 Intake Total 1360 1300 Output Total 1500 1250 Balance -140 50 Result Diagrams: 05/12/18 21:56 05/14/18 03:51 EKG Reviewed by me: Yes (Tele: V-paced) Phys Exam - Physical Examination Constitutional: NAD HEENT: moist MMs Neck: supple Respiratory: clear to auscultation bilateral Cardiovascular: RRR Gastrointestinal: soft Neurological: moves all 4 limbs Psychiatric: normal affect Dx/Plan (1) Acute systolic (congestive) heart failure Code(s): I50.21 - ACUTE SYSTOLIC (CONGESTIVE) HEART FAILURE Status: Acute Comment: continue Lasix 40mg IV BID (2) UTI (urinary tract infection) Status: Acute Comment: Continue Rocephin and monitor Ucx results (3) Ischemic cardiomyopathy Code(s): I25.5 - ISCHEMIC CARDIOMYOPATHY Status: Acute Comment: continue beta ortiz, not on ACEI/ARB due to CKD. (4) CKD (chronic kidney disease) stage 4, GFR 15-29 ml/min Code(s): N18.4 - CHRONIC KIDNEY DISEASE, STAGE 4 (SEVERE) Status: Chronic Comment: stable (5) CAD (coronary artery disease) Code(s): I25.10 - ATHSCL HEART DISEASE OF [place] CORONARY ARTERY W/O ANG PCTRS Status: Chronic Comment: continue aspirin, statin and betablocker. - Plan * . Review of Systems - Review of Systems Respiratory: negative: Cough, Shortness of Breath, SOB with Excertion, Pleuritic Pain, Wheezing Cardiovascular: negative: chest pain, palpitations, orthopnea, paroxysmal nocturnal dyspnea, edema, light headedness - Medications/Allergies Allergies/Adverse Reactions: Allergies Allergy/AdvReac Type Severity Reaction Status Date / Time Iodine and Iodide Containing Allergy Verified 01/18/18 23:50 Produc Medications: Current Medications Acetaminophen (Tylenol) 1,000 mg PO Q6H PRN PRN Reason: Mild Pain (1-3) Albuterol Sulfate (Ventolin) 7.5 mg NEB Q6HR PRN PRN Reason: SOB, Wheezing Aspirin (Aspirin Chewable) 81 mg PO DAILY [facility] Last Admin: 05/14/18 08:42 Dose: 81 mg Atorvastatin Calcium (Lipitor) 80 mg PO HS [facility] Last Admin: 05/13/18 22:15 Dose: 80 mg Clonidine (Catapres) 0.1 mg PO Q4H PRN PRN Reason: SBP > = 180 Digoxin (Lanoxin) 0.125 mg PO Q2D [facility] Last Admin: 05/12/18 17:33 Dose: 0.125 mg Famotidine (Pepcid) 20 mg PO DAILY [facility] Last Admin: 05/14/18 08:42 Dose: 20 mg Furosemide (Lasix) 40 mg SLOW IVP 0600,1400 [facility] Last Admin: 05/14/18 06:07 Dose: 40 mg Galantamine Hydrobromide (Razadyne) 12 mg PO BID [facility] Last Admin: 05/14/18 08:41 Dose: 12 mg Hydralazine HCl (Apresoline) 10 mg SLOW IVP Q4H PRN PRN Reason: SBP > 180 and HR < 70 Ceftriaxone Sodium 1 gm/ (Sodium Chloride) 100 mls @ 200 mls/hr IVPB Q24HR [facility] Last Admin: 05/13/18 22:18 Dose: 100 mls Iron/Minerals/Multivitamins (Theragran M) 1 tab PO DAILY [facility] Last Admin: 05/14/18 08:42 Dose: 1 tab Melatonin (Melatonin) 3 mg PO HS PRN PRN Reason: Insomnia Last Admin: 05/13/18 22:15 Dose: 3 mg Metoprolol Succinate (Toprol Xl) 25 mg PO DAILY [facility] Last Admin: 05/14/18 08:41 Dose: 25 mg Nystatin (Mycostatin Powder) 0 gm TOP BID PRN PRN Reason: Rash/Topical Irritation Last Admin: 05/13/18 22:27 Dose: 1 applic Ondansetron HCl (Zofran Odt) 4 mg PO Q6H PRN PRN Reason: Nausea/Vomiting Last Admin: 05/13/18 23:29 Dose: 4 mg Ondansetron HCl (Zofran) 4 mg IVP Q6H PRN PRN Reason: Nausea/Vomiting Last Admin: 05/12/18 22:19 Dose: 4 mg Phenazopyridine HCl (Azo Standard) 195 mg PO DAILY [facility] Last Admin: 05/14/18 08:41 Dose: 195 mg Polysaccharide Iron Complex (Niferex) 150 mg PO BID [facility] Last Admin: 05/14/18 08:42 Dose: Not Given Potassium Chloride (K-Dur) 20 meq PO DAILY [facility] Last Admin: 05/14/18 08:41 Dose: Not Given Rivaroxaban (Xarelto) 10 mg PO DAILY [facility] Last Admin: 05/14/18 08:42 Dose: 10 mg
[2018-05-14] MEDS: Digoxin 0.125 MG TAB PO SCH (16:33)
[2018-05-14] MEDS: Atorvastatin Calcium 40 MG TAB PO SCH (20:58)
[2018-05-14] MEDS: Melatonin 3 MG TAB PO PRN (21:44)
[2018-05-14 22:28] LABS: Hemoglobin 10.1 g/dL (12.0-16.0); Platelet Count 293 thou/uL (130-400)
--- NOTE | 2018-05-14 23:33 | EKG ---
Test Reason : Blood Pressure : / mmHG Vent. Rate : 095 BPM Atrial Rate : 095 BPM P-R Int : 000 ms QRS Dur : 132 ms QT Int : 360 ms P-R-T Axes : 000 -31 126 degrees QTc Int : 452 ms Ventricular-paced rhythm Abnormal ECG Confirmed by SILVER IRIZARRY MD ([id number]), editor producer LEO MORROW ([id number]) on 05/14/2018 11:33:32 PM Referred By: Confirmed By:SILVER IRIZARRY MD
[2018-05-15] MEDS: Furosemide 40 MG/4 ML VIAL SLOW IVP SCH ×2 (06:22→16:34)
[2018-05-15 08:19] LABS: Anion Gap 10 mmol/L (10-20); BUN (Urea Nitrogen) 39 mg/dL (9.8-20.1); Calc. Creatinine Clearance 30 mL/min (70-130); Calcium 8.5 mg/dL (7.8-10.44); Carbon Dioxide 34 mmol/L (23-31); Chloride 91 mmol/L (98-107); Estimated GFR-MDRD 30; Glucose 112 mg/dL (83-110); Potassium 3.7 mmol/L (3.5-5.1); Sodium 131 mmol/L (136-145)
[2018-05-15 08:31] LABS: #Basophils 0.1 thou/uL (0.0-0.2); #Eosinphils 0.1 thou/uL (0.0-0.7); #Lymphocytes 0.6 thou/uL (1.20-3.40); #Monocytes 0.7 thou/uL (0.11-0.59); #Neutrophils 5.8 thou/uL (1.40-6.50); %Basophils 1.2 % (0.0-1.0); %Eosinophils 1.7 % (0.0-10.0); %Lymphocytes 7.8 % (21.0-51.0); %Monocytes 9.4 % (0.0-10.0); %Neutrophils 79.9 % (42.0-75.0); Mean Corpuscular HGB CONC 29.7 g/dL (32.0-36.0); Mean Corpuscular Hemoglobin 21.8 pg (27.0-31.0); Mean Corpuscular Volume 73.3 fL (78.0-98.0); Mean Platelet Volume 9.9 fL (7.4-10.4); Platelet Count 302 thou/uL (130-400); RBC Distribution Width 18.7 % (11.5-14.5); Red Blood Cell (RBC) Count 4.61 mill/uL (4.20-5.40); White Blood Cell (WBC) Count 7.3 thou/uL (4.8-10.8)
[2018-05-15] MEDS: Phenazopyridine HCl 97.5 MG TABLET PO SCH (09:09)
[2018-05-15] MEDS: Rivaroxaban 10 MG TAB PO SCH (09:09)
[2018-05-15] MEDS: Potassium Chloride 20 MEQ TAB PO SCH (09:09)
[2018-05-15] MEDS: Iron Polysaccharides Complex 150 MG CAP PO SCH ×2 (09:09→20:43)
[2018-05-15] MEDS: Multivitamin W/ Minerals 1 TAB PO SCH (09:09)
[2018-05-15] MEDS: Famotidine 20 MG TAB PO SCH (09:09)
--- NOTE | 2018-05-15 10:25 | PDOC.CTH ---
Cardiology Progress Note - Subjective No complaints. Patient wanting to go home. Scheduled for MPI today. - Objective Vital Signs Temp Pulse Resp BP Pulse Ox 05/15/18 07:08 97.6 F 76 16 140/65 97 05/15/18 03:11 98.1 F 84 16 137/65 96 Admit Weight 156 lb 12.8 oz Weight 158 lb 05/14/18 05/15/18 05/16/18 07:59 06:59 06:59 Intake Total Output Total Balance - Physical Examination General/Neuro: alert & oriented x3 Neck: no JVD present Lungs: CTA Heart: RRR Abdomen: NT/ND - Telemetry Telemetry Rhythm: AV pacing; -[employer] CONSULTANT - Labs Result Diagrams: 05/15/18 07:48 05/15/18 07:48 Troponin/CKMB CK-MB (CK-2) 6.9 ng/mL (0-6.6) H* 05/10/18 23:27 Troponin I 0.049 ng/mL (< 0.028) H 05/10/18 23:27 - Assessment/Plan 1. 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 CAD s/p CABG 3. Paroxysmal AF 4. s/p BiV pacer 5. HTN 6. Mild Dementia Await stress results. May need cath if ischemia noted. Patient with BiV pacer placement. Last check 04/25/18 showed AF burden 3.6%. Some RVR with AF episodes , but not frequent. No changes at this time.
--- NOTE | 2018-05-15 10:59 | PDOC.PN ---
- Subjective Encounter Start Date: 05/15/18 Encounter Start Time: 08:00 Pt seen for followup re: systolic CHF. Denies chest pain, shortness of breath, fevers or chills. - Objective Resuscitation Status: Resuscitation Status FULL:Full Resuscitation MAR Reviewed: Yes Vital Signs & Weight: Vital Signs (12 hours) Temp Pulse Resp BP Pulse Ox 05/15/18 07:08 97.6 F 76 16 140/65 97 05/15/18 03:11 98.1 F 84 16 137/65 96 Weight Admit Weight 156 lb 12.8 oz Weight 158 lb I&O: 05/14/18 05/15/18 05/16/18 07:59 06:59 06:59 Intake Total Output Total Balance Result Diagrams: 05/15/18 07:48 05/15/18 07:48 EKG Reviewed by me: Yes (Tele: AV-paced) Phys Exam - Physical Examination Constitutional: NAD HEENT: moist MMs Neck: supple Respiratory: clear to auscultation bilateral Cardiovascular: RRR Gastrointestinal: soft Neurological: moves all 4 limbs Psychiatric: normal affect Dx/Plan (1) Acute systolic (congestive) heart failure Code(s): I50.21 - ACUTE SYSTOLIC (CONGESTIVE) HEART FAILURE Status: Acute Comment: on furosemide, change to torsemide at the time of discharge (2) Ischemic cardiomyopathy Code(s): I25.5 - ISCHEMIC CARDIOMYOPATHY Status: Acute Comment: on beta ortiz, not on ACEI/ARB due to CKD. Pt to have stress test today. (3) CKD (chronic kidney disease) stage 4, GFR 15-29 ml/min Code(s): N18.4 - CHRONIC KIDNEY DISEASE, STAGE 4 (SEVERE) Status: Chronic Comment: stable (4) CAD (coronary artery disease) Code(s): I25.10 - ATHSCL HEART DISEASE OF [place] CORONARY ARTERY W/O ANG PCTRS Status: Chronic Comment: stable, continue aspirin, statin and betablocker. (5) UTI (urinary tract infection) Status: Ruled-out Comment: ruled out. Ceftriaxone discontinued. - Plan * . Review of Systems - Review of Systems Respiratory: negative: Cough, Shortness of Breath, SOB with Excertion, Pleuritic Pain, Wheezing Cardiovascular: negative: chest pain, palpitations, orthopnea, paroxysmal nocturnal dyspnea, edema, light headedness - Medications/Allergies Allergies/Adverse Reactions: Allergies Allergy/AdvReac Type Severity Reaction Status Date / Time Iodine and Iodide Containing Allergy Verified 01/18/18 23:50 Produc Medications: Current Medications Acetaminophen (Tylenol) 1,000 mg PO Q6H PRN PRN Reason: Mild Pain (1-3) Albuterol Sulfate (Ventolin) 7.5 mg NEB Q6HR PRN PRN Reason: SOB, Wheezing Aspirin (Aspirin Chewable) 81 mg PO DAILY [facility] Last Admin: 05/15/18 09:08 Dose: Not Given Atorvastatin Calcium (Lipitor) 80 mg PO HS [facility] Last Admin: 05/14/18 20:58 Dose: 80 mg Clonidine (Catapres) 0.1 mg PO Q4H PRN PRN Reason: SBP > = 180 Digoxin (Lanoxin) 0.125 mg PO Q2D [facility] Last Admin: 05/14/18 16:33 Dose: 0.125 mg Famotidine (Pepcid) 20 mg PO DAILY [facility] Last Admin: 05/15/18 09:09 Dose: Not Given Furosemide (Lasix) 40 mg SLOW IVP 0600,1400 [facility] Last Admin: 05/15/18 06:22 Dose: 40 mg Galantamine Hydrobromide (Razadyne) 12 mg PO BID [facility] Last Admin: 05/15/18 09:09 Dose: Not Given Hydralazine HCl (Apresoline) 10 mg SLOW IVP Q4H PRN PRN Reason: SBP > 180 and HR < 70 Iron/Minerals/Multivitamins (Theragran M) 1 tab PO DAILY [facility] Last Admin: 05/15/18 09:09 Dose: Not Given Melatonin (Melatonin) 3 mg PO HS PRN PRN Reason: Insomnia Last Admin: 05/14/18 21:44 Dose: 3 mg Metoprolol Succinate (Toprol Xl) 25 mg PO DAILY [facility] Last Admin: 05/15/18 09:09 Dose: Not Given Nystatin (Mycostatin Powder) 0 gm TOP BID PRN PRN Reason: Rash/Topical Irritation Last Admin: 05/13/18 22:27 Dose: 1 applic Ondansetron HCl (Zofran Odt) 4 mg PO Q6H PRN PRN Reason: Nausea/Vomiting Last Admin: 05/13/18 23:29 Dose: 4 mg Ondansetron HCl (Zofran) 4 mg IVP Q6H PRN PRN Reason: Nausea/Vomiting Last Admin: 05/12/18 22:19 Dose: 4 mg Phenazopyridine HCl (Azo Standard) 195 mg PO DAILY [facility] Last Admin: 05/15/18 09:09 Dose: Not Given Polysaccharide Iron Complex (Niferex) 150 mg PO BID [facility] Last Admin: 05/15/18 09:09 Dose: Not Given Potassium Chloride (K-Dur) 20 meq PO DAILY [facility] Last Admin: 05/15/18 09:09 Dose: Not Given Rivaroxaban (Xarelto) 10 mg PO DAILY [facility] Last Admin: 05/15/18 09:09 Dose: Not Given Sodium Chloride (Flush - Normal Saline) 10 ml IVF PRN PRN PRN Reason: Saline Flush
[2018-05-15] MEDS ORDERED: ADENOSINE 60 MG/20 ML VIAL ONE (12:53)
--- NOTE | 2018-05-15 18:03 | NM ---
MYOCARDIAL PERFUSION AND QUANTITATIVE GATED SPECT STUDY: 05/15/2018 HISTORY: Chest pain. DOSE: Technetium 99m Cardiolite 27 millicuries for the stress portion of the exam and 9 millicuries for the rest portion of the exam. The patient was stressed using 39.8 mg of adenosine given IV. FINDINGS: Images demonstrate multiple areas of decreased perfusion on rest and stress images throughout the lef t ventricle, involving the anterior, lateral, inferior, and septal regions. There is global hypokine sis of the left ventricle. The ejection fraction is markedly decreased, measuring 31%. No definite significant reversible changes seen. Findings compatible with multiple areas of left ventricular inf arctions and scarring. IMPRESSION: Hypokinesis with multiple areas of nonreversible myocardial perfusion defects. POS: [facility]
[2018-05-15] MEDS: Atorvastatin Calcium 40 MG TAB PO SCH (20:42)
[2018-05-15] MEDS: Melatonin 3 MG TAB PO PRN (20:43)
[2018-05-16 05:21] LABS: Anion Gap 11 mmol/L (10-20); BUN (Urea Nitrogen) 37 mg/dL (9.8-20.1); Calc. Creatinine Clearance 35 mL/min (70-130); Calcium 8.7 mg/dL (7.8-10.44); Carbon Dioxide 31 mmol/L (23-31); Chloride 92 mmol/L (98-107); Estimated GFR-MDRD 35; Glucose 109 mg/dL (83-110); Potassium 3.5 mmol/L (3.5-5.1); Sodium 130 mmol/L (136-145)
[2018-05-16 05:40] LABS: Eosinophils 2 % (0-10); Hemoglobin 10.5 g/dL (12.0-16.0); Lymphocytes 8 % (21-51); MDiff Complete? YES; Mean Corpuscular HGB CONC 29.7 g/dL (32.0-36.0); Mean Corpuscular Hemoglobin 21.6 pg (27.0-31.0); Mean Corpuscular Volume 72.9 fL (78.0-98.0); Mean Platelet Volume 10.3 fL (7.4-10.4); Monocytes 9 % (0-10); Neutrophil 80 % (42-75); Nucleated RBC 2 % (0); PLT Morphology Comment Appears Adequate; Platelet Count 284 thou/uL (130-400); RBC Distribution Width 18.7 % (11.5-14.5); Red Blood Cell (RBC) Count 4.85 mill/uL (4.20-5.40); White Blood Cell (WBC) Count 7.9 thou/uL (4.8-10.8)
[2018-05-16] MEDS: Furosemide 40 MG/4 ML VIAL SLOW IVP SCH ×2 (06:26→14:13)
[2018-05-16] MEDS: Phenazopyridine HCl 97.5 MG TABLET PO SCH (08:15)
[2018-05-16] MEDS: Multivitamin W/ Minerals 1 TAB PO SCH (08:15)
[2018-05-16] MEDS: Rivaroxaban 10 MG TAB PO SCH (08:15)
[2018-05-16] MEDS: Potassium Chloride 20 MEQ TAB PO SCH (08:15)
[2018-05-16] MEDS: Iron Polysaccharides Complex 150 MG CAP PO SCH ×3 (08:15→21:02)
[2018-05-16] MEDS: Famotidine 20 MG TAB PO SCH (08:16)
--- NOTE | 2018-05-16 09:41 | PRG ---
DATE OF SERVICE: 05/16/2018 Ms. Temple is breathing well, but still has a lot of edema, no chest pain. She is not short of margaret ath, but she is at rest. PHYSICAL EXAMINATION: VITAL SIGNS: Blood pressure is 136/65, pulse 83. LUNGS: Clear. CARDIAC: There is a soft systolic murmur at the left midsternal border. No diastolic murmur. ABDOMEN: Soft, nontender. EXTREMITIES: There is still moderate to severe edema. PERTINENT LABORATORY: The sodium is 130, potassium 3.5. The hemoglobin is 10.5. Reviewing the records, the patient had no significant aortic stenosis on echocardiogram about a year ago. Her ejection fraction has fallen dramatically. The patient had a biventricular pacemaker place d in the meantime. Stress test revealed multiple fixed defects compatible with previous infarctions. ASSESSMENT: 1. Newly diagnosed systolic heart failure, possibly related to coronary artery disease. 2. History of bypass surgery many years ago. 3. IODINE allergy. 4. Stage 3 renal failure. 5. Hyponatremia. 6. Aortic stenosis, probably mild to moderate. 7. Overall health is poor. PLAN: 1. We will discontinue digoxin in view of the AV antoinette blockade, probably should not need it any mor e. 2. We will do iron levels. 3. We will stop Xarelto, probably will ultimately need cardiac catheterization. 4. Continue intravenous furosemide. Prognosis is guarded in this elderly patient with multiple medical problems.
[2018-05-16 10:59] LABS: Iron 19 ug/dL (50-170); Iron Binding Capacity, Total 330 mcg/dL (265-497)
--- NOTE | 2018-05-16 11:48 | PDOC.PN ---
- Subjective Encounter Start Date: 05/16/18 Encounter Start Time: 07:00 Pt seen for followup re: acute systolic CHF. Feels better. Denies chest pain or shortness of breath. - Objective Resuscitation Status: Resuscitation Status FULL:Full Resuscitation MAR Reviewed: Yes Vital Signs & Weight: Vital Signs (12 hours) Temp Pulse Resp BP Pulse Ox 05/16/18 07:20 97 05/16/18 07:19 97.9 F 83 16 136/65 97 05/16/18 04:00 97.6 F 67 18 150/66 H 94 L 05/16/18 00:17 97 Weight Admit Weight 156 lb 12.8 oz Weight 157 lb I&O: 05/15/18 05/16/18 05/17/18 06:59 06:59 06:59 Intake Total 840 Output Total 850 Balance -10 Result Diagrams: 05/17/18 05:00 05/17/18 05:00 EKG Reviewed by me: Yes (Tele: AV-paced) Phys Exam - Physical Examination Constitutional: NAD HEENT: moist MMs Neck: supple Jacky crackles Cardiovascular: RRR Gastrointestinal: soft Neurological: moves all 4 limbs Psychiatric: normal affect Dx/Plan (1) Acute systolic (congestive) heart failure Code(s): I50.21 - ACUTE SYSTOLIC (CONGESTIVE) HEART FAILURE Status: Acute Comment: continue IV furosemide (2) Ischemic cardiomyopathy Code(s): I25.5 - ISCHEMIC CARDIOMYOPATHY Status: Acute Comment: irreversible defects on stress study. Continue beta ortiz (3) CKD (chronic kidney disease) stage 4, GFR 15-29 ml/min Code(s): N18.4 - CHRONIC KIDNEY DISEASE, STAGE 4 (SEVERE) Status: Chronic Comment: stable (4) CAD (coronary artery disease) Code(s): I25.10 - ATHSCL HEART DISEASE OF [place] CORONARY ARTERY W/O ANG PCTRS Status: Chronic Comment: continue aspirin, statin and betablocker. (5) UTI (urinary tract infection) Status: Ruled-out - Plan * . Review of Systems - Review of Systems Respiratory: negative: Cough, Shortness of Breath, SOB with Excertion, Pleuritic Pain, Wheezing Cardiovascular: negative: chest pain, palpitations, orthopnea, paroxysmal nocturnal dyspnea, edema, light headedness - Medications/Allergies Allergies/Adverse Reactions: Allergies Allergy/AdvReac Type Severity Reaction Status Date / Time Iodine and Iodide Containing Allergy Verified 01/18/18 23:50 Produc Medications: Current Medications Acetaminophen (Tylenol) 1,000 mg PO Q6H PRN PRN Reason: Mild Pain (1-3) Albuterol Sulfate (Ventolin) 7.5 mg NEB Q6HR PRN PRN Reason: SOB, Wheezing Aspirin (Aspirin Chewable) 81 mg PO DAILY [facility] Last Admin: 05/16/18 08:16 Dose: 81 mg Atorvastatin Calcium (Lipitor) 80 mg PO HS [facility] Last Admin: 05/15/18 20:42 Dose: 80 mg Clonidine (Catapres) 0.1 mg PO Q4H PRN PRN Reason: SBP > = 180 Famotidine (Pepcid) 20 mg PO DAILY [facility] Last Admin: 05/16/18 08:16 Dose: 20 mg Furosemide (Lasix) 40 mg SLOW IVP 0600,1400 [facility] Last Admin: 05/16/18 06:26 Dose: 40 mg Galantamine Hydrobromide (Razadyne) 12 mg PO BID [facility] Last Admin: 05/16/18 08:15 Dose: 12 mg Hydralazine HCl (Apresoline) 10 mg SLOW IVP Q4H PRN PRN Reason: SBP > 180 and HR < 70 Iron/Minerals/Multivitamins (Theragran M) 1 tab PO DAILY [facility] Last Admin: 05/16/18 08:15 Dose: 1 tab Melatonin (Melatonin) 3 mg PO HS PRN PRN Reason: Insomnia Last Admin: 05/15/18 20:43 Dose: 3 mg Metoprolol Succinate (Toprol Xl) 25 mg PO DAILY [facility] Last Admin: 05/16/18 08:15 Dose: 25 mg Nystatin (Mycostatin Powder) 0 gm TOP BID PRN PRN Reason: Rash/Topical Irritation Last Admin: 05/13/18 22:27 Dose: 1 applic Ondansetron HCl (Zofran Odt) 4 mg PO Q6H PRN PRN Reason: Nausea/Vomiting Last Admin: 05/13/18 23:29 Dose: 4 mg Ondansetron HCl (Zofran) 4 mg IVP Q6H PRN PRN Reason: Nausea/Vomiting Last Admin: 05/12/18 22:19 Dose: 4 mg Phenazopyridine HCl (Azo Standard) 195 mg PO DAILY [facility] Last Admin: 05/16/18 08:15 Dose: 195 mg Polysaccharide Iron Complex (Niferex) 150 mg PO BID [facility] Last Admin: 05/16/18 08:22 Dose: Not Given Potassium Chloride (K-Dur) 20 meq PO DAILY [facility] Last Admin: 05/16/18 08:15 Dose: 20 meq Sodium Chloride (Flush - Normal Saline) 10 ml IVF PRN PRN PRN Reason: Saline Flush Last Admin: 05/16/18 08:15 Dose: 10 ml
[2018-05-16 12:04] VITALS: BMI 25.3
[2018-05-16] MEDS: Atorvastatin Calcium 40 MG TAB PO SCH (21:01)
[2018-05-16] MEDS: Melatonin 3 MG TAB PO PRN (21:02)
[2018-05-16 22:12] LABS: Hemoglobin 10.4 g/dL (12.0-16.0); Platelet Count 274 thou/uL (130-400)
[2018-05-17] MEDS ORDERED: diphenhydrAMINE 25 MG CAP PO PRN (02:45)
[2018-05-17 05:30] LABS: Anion Gap 9 mmol/L (10-20); BUN (Urea Nitrogen) 43 mg/dL (9.8-20.1); Calc. Creatinine Clearance 30 mL/min (70-130); Calcium 8.7 mg/dL (7.8-10.44); Carbon Dioxide 33 mmol/L (23-31); Chloride 93 mmol/L (98-107); Estimated GFR-MDRD 30; Glucose 114 mg/dL (83-110); Potassium 4.1 mmol/L (3.5-5.1); Sodium 131 mmol/L (136-145)
[2018-05-17 05:31] LABS: #Basophils 0.1 thou/uL (0.0-0.2); #Eosinphils 0.1 thou/uL (0.0-0.7); #Lymphocytes 0.8 thou/uL (1.20-3.40); #Monocytes 0.8 thou/uL (0.11-0.59); #Neutrophils 6.1 thou/uL (1.40-6.50); %Basophils 1.2 % (0.0-1.0); %Lymphocytes 9.6 % (21.0-51.0); %Monocytes 10.1 % (0.0-10.0); %Neutrophils 78.2 % (42.0-75.0); Mean Corpuscular HGB CONC 29.1 g/dL (32.0-36.0); Mean Corpuscular Hemoglobin 21.6 pg (27.0-31.0); Mean Corpuscular Volume 74.2 fL (78.0-98.0); Mean Platelet Volume 9.9 fL (7.4-10.4); Platelet Count 278 thou/uL (130-400); RBC Distribution Width 18.8 % (11.5-14.5); Red Blood Cell (RBC) Count 4.62 mill/uL (4.20-5.40); White Blood Cell (WBC) Count 7.8 thou/uL (4.8-10.8)
[2018-05-17] MEDS: Furosemide 40 MG/4 ML VIAL SLOW IVP SCH ×2 (06:06→16:26)
[2018-05-17] MEDS ORDERED: Iron, Sodium Ferric Gluconate 250 MG in Sodium Chloride 0.9% 250 ML 250 ML IVPB SCH (08:15)
[2018-05-17] MEDS: Phenazopyridine HCl 97.5 MG TABLET PO SCH (08:53)
[2018-05-17] MEDS: Multivitamin W/ Minerals 1 TAB PO SCH (08:54)
[2018-05-17] MEDS: Famotidine 20 MG TAB PO SCH (08:55)
[2018-05-17] MEDS: Iron Polysaccharides Complex 150 MG CAP PO SCH ×2 (08:55→20:49)
[2018-05-17] MEDS: Potassium Chloride 20 MEQ TAB PO SCH (08:56)
--- NOTE | 2018-05-17 10:05 | PRG ---
DATE OF SERVICE: 05/17/2018 Ms. Temple is breathing somewhat better. She is able to lay supine now. PHYSICAL EXAMINATION: VITAL SIGNS: Her blood pressure 137/70, pulse 70. LUNGS: Clear anteriorly and laterally. CARDIAC: Normal S1, normal S2 with a soft systolic murmur. ABDOMEN: Soft, nontender. EXTREMITIES: There is moderate edema. PERTINENT LABORATORY: Her creatinine is 1.6. Estimated GFR is 30. Sodium is 131. Iron level was low at 19. Ferritin 108, percent saturation 6. ASSESSMENT: 1. Congestive heart failure, systolic, acute on chronic, improving. 2. Renal failure stage 3. 3. Coronary artery disease. Reviewing the records, the patient had bypass surgery in 2002. At that time it was noted that she taylor d diffusely calcified vessels. She had bypass x4 with free internal mammary to the LAD, free left radial artery to the diagonal, sap henous vein graft to the obtuse marginal, saphenous vein graft to the ventricular branch of the right coronary artery. The internal mammary was used to free graft as there was no pulse in the internal mammary, probably s econdary to proximal subclavian disease; therefore we used as a free graft. The sternum was poor. T he aortotomies were made, obtuse marginal graft and the right saphenous vein grafts were placed on th e aorta. The diagonal was piggybacked onto the obtuse marginal lawson. The LAD was piggybacked onto t he CHRISSY lawson. On stress testing it looks like a large area of fixed defect with extensive scar, but no ischemia. At this point, I did discuss with the patient the options of medical therapy versus cardiac catheteri zation. I also reviewed the cardiac catheterization note. Catheterization was done by Dr. Sebastian. It did reveal 3 vessel disease. At this point, after reviewing the records, it is not clear to me that there would be a significant benefit to recatheterization, chance of reoperation is not an option ba sed on her renal insufficiency and calcified vessels with peripheral vascular disease. Medical thera py likely to be her best option. I will discuss this with the patient.
--- NOTE | 2018-05-17 15:32 | PDOC.PN ---
- Subjective Encounter Start Date: 05/17/18 Encounter Start Time: 15:31 Pt seen for followup re: acute systolic CHF. - Objective Resuscitation Status: Resuscitation Status FULL:Full Resuscitation MAR Reviewed: Yes Vital Signs & Weight: Vital Signs (12 hours) Temp Pulse Resp BP Pulse Ox 05/17/18 12:07 97.5 F L 79 18 119/63 100 05/17/18 08:32 98.4 F 75 16 137/70 99 05/17/18 07:06 84 L 05/17/18 04:00 98 F 75 14 133/66 98 Weight Admit Weight 156 lb 12.8 oz Weight 157 lb I&O: 05/16/18 05/17/18 05/18/18 06:59 06:59 06:59 Intake Total 840 1200 Output Total 850 250 Balance -10 950 Result Diagrams: 05/17/18 05:00 05/17/18 05:00 EKG Reviewed by me: Yes (Tele: AV-paced) Phys Exam - Physical Examination Constitutional: NAD HEENT: moist MMs Neck: supple Jacky crackles Cardiovascular: RRR Gastrointestinal: soft Neurological: moves all 4 limbs Psychiatric: normal affect Dx/Plan (1) Acute systolic (congestive) heart failure Code(s): I50.21 - ACUTE SYSTOLIC (CONGESTIVE) HEART FAILURE Status: Acute Comment: on IV furosemide, will continue today (2) Ischemic cardiomyopathy Code(s): I25.5 - ISCHEMIC CARDIOMYOPATHY Status: Acute Comment: irreversible defects on stress study. No plan for cath. On beta ortiz, not on ACEI due to renal failure. (3) CKD (chronic kidney disease) stage 4, GFR 15-29 ml/min Code(s): N18.4 - CHRONIC KIDNEY DISEASE, STAGE 4 (SEVERE) Status: Chronic Comment: stable (4) CAD (coronary artery disease) Code(s): I25.10 - ATHSCL HEART DISEASE OF [place] CORONARY ARTERY W/O ANG PCTRS Status: Chronic Comment: on aspirin, statin and betablocker. (5) UTI (urinary tract infection) Status: Ruled-out - Plan * . Review of Systems - Review of Systems Constitutional: negative: fever, chills, sweats, weakness, malaise Respiratory: Dry. negative: Cough, Shortness of Breath, SOB with Excertion, Pleuritic Pain, Wheezing Gastrointestinal: negative: Nausea, Vomiting, Abdominal Pain, Diarrhea, Constipation, Melena, Hematochezia - Medications/Allergies Allergies/Adverse Reactions: Allergies Allergy/AdvReac Type Severity Reaction Status Date / Time Iodine and Iodide Containing Allergy Verified 01/18/18 23:50 Produc Medications: Current Medications Acetaminophen (Tylenol) 1,000 mg PO Q6H PRN PRN Reason: Mild Pain (1-3) Albuterol Sulfate (Ventolin) 7.5 mg NEB Q6HR PRN PRN Reason: SOB, Wheezing Aspirin (Aspirin Chewable) 81 mg PO DAILY [facility] Last Admin: 05/17/18 08:52 Dose: 81 mg Atorvastatin Calcium (Lipitor) 80 mg PO HS [facility] Last Admin: 05/16/18 21:01 Dose: 80 mg Carvedilol (Coreg) 3.125 mg PO BID-[facility] Clonidine (Catapres) 0.1 mg PO Q4H PRN PRN Reason: SBP > = 180 Diphenhydramine HCl (Benadryl) 25 mg PO Q6H PRN PRN Reason: Itching Last Admin: 05/17/18 02:56 Dose: 25 mg Famotidine (Pepcid) 20 mg PO DAILY [facility] Last Admin: 05/17/18 08:55 Dose: 20 mg Furosemide (Lasix) 40 mg SLOW IVP 0600,1400 [facility] Galantamine Hydrobromide (Razadyne) 12 mg PO BID [facility] Last Admin: 05/17/18 08:52 Dose: 12 mg Hydralazine HCl (Apresoline) 10 mg SLOW IVP Q4H PRN PRN Reason: SBP > 180 and HR < 70 Iron/Minerals/Multivitamins (Theragran M) 1 tab PO DAILY [facility] Last Admin: 05/17/18 08:54 Dose: 1 tab Melatonin (Melatonin) 3 mg PO HS PRN PRN Reason: Insomnia Last Admin: 05/16/18 21:02 Dose: 3 mg Nystatin (Mycostatin Powder) 0 gm TOP BID PRN PRN Reason: Rash/Topical Irritation Last Admin: 05/13/18 22:27 Dose: 1 applic Ondansetron HCl (Zofran Odt) 4 mg PO Q6H PRN PRN Reason: Nausea/Vomiting Last Admin: 05/13/18 23:29 Dose: 4 mg Ondansetron HCl (Zofran) 4 mg IVP Q6H PRN PRN Reason: Nausea/Vomiting Last Admin: 05/12/18 22:19 Dose: 4 mg Phenazopyridine HCl (Azo Standard) 195 mg PO DAILY [facility] Last Admin: 05/17/18 08:53 Dose: 195 mg Polysaccharide Iron Complex (Niferex) 150 mg PO BID [facility] Last Admin: 05/17/18 08:55 Dose: 150 mg Sodium Chloride (Flush - Normal Saline) 10 ml IVF PRN PRN PRN Reason: Saline Flush Last Admin: 05/16/18 08:15 Dose: 10 ml
[2018-05-17] MEDS: Carvedilol 3.125 MG TAB PO SCH (16:27)
[2018-05-17] MEDS: Melatonin 3 MG TAB PO PRN (20:49)
[2018-05-17] MEDS: Atorvastatin Calcium 40 MG TAB PO SCH (20:49)
[2018-05-18 06:06] LABS: #Basophils 0.1 thou/uL (0.0-0.2); #Eosinphils 0.2 thou/uL (0.0-0.7); #Lymphocytes 0.6 thou/uL (1.20-3.40); #Neutrophils 6.2 thou/uL (1.40-6.50); %Basophils 1.4 % (0.0-1.0); %Eosinophils 2.3 % (0.0-10.0); %Lymphocytes 7.9 % (21.0-51.0); %Monocytes 12.6 % (0.0-10.0); %Neutrophils 75.9 % (42.0-75.0); Hemoglobin 9.7 g/dL (12.0-16.0); Mean Corpuscular Hemoglobin 21.6 pg (27.0-31.0); Mean Corpuscular Volume 74.4 fL (78.0-98.0); Mean Platelet Volume 10.6 fL (7.4-10.4); Platelet Count 249 thou/uL (130-400); RBC Distribution Width 19.3 % (11.5-14.5); Red Blood Cell (RBC) Count 4.47 mill/uL (4.20-5.40); White Blood Cell (WBC) Count 8.1 thou/uL (4.8-10.8)
[2018-05-18] MEDS: Furosemide 40 MG/4 ML VIAL SLOW IVP SCH (06:38)
[2018-05-18 06:54] LABS: Anion Gap 16 mmol/L (10-20); BUN (Urea Nitrogen) 44 mg/dL (9.8-20.1); Calc. Creatinine Clearance 32 mL/min (70-130); Calcium 8.9 mg/dL (7.8-10.44); Carbon Dioxide 25 mmol/L (23-31); Chloride 95 mmol/L (98-107); Estimated GFR-MDRD 32; Glucose 89 mg/dL (83-110); Potassium 3.9 mmol/L (3.5-5.1); Sodium 132 mmol/L (136-145)
[2018-05-18] MEDS: Famotidine 20 MG TAB PO SCH (09:59)
[2018-05-18] MEDS: Iron Polysaccharides Complex 150 MG CAP PO SCH (09:59)
[2018-05-18] MEDS: Multivitamin W/ Minerals 1 TAB PO SCH (09:59)
[2018-05-18] MEDS: Carvedilol 3.125 MG TAB PO SCH ×2 (09:59→16:08)
[2018-05-18] MEDS: Phenazopyridine HCl 97.5 MG TABLET PO SCH ×2 (14:59→16:08)
[2018-05-18 16:23] VITALS: BP 135/63; TEMP 97.7
[2018-05-18] MEDS ORDERED: Potassium Chloride 10 MEQ TAB PO SCH (17:00)
--- NOTE | 2018-05-19 00:49 | DIS ---
DATE OF ADMISSION: 05/10/2018 DATE OF DISCHARGE: 05/18/2018 PRIMARY CARE PHYSICIAN: Yuly Sepulveda. DISCHARGE DIAGNOSES: 1. Acute systolic congestive heart failure. 2. Ischemic cardiomyopathy. 3. Chronic kidney disease stage 4. 4. Coronary artery disease. CONDITION OF PATIENT ON THE DAY OF DISCHARGE: Stable. I assessed Ms. Temple on the day of dischar . She denies any chest pain or shortness of breath. Her vital signs are stable. S1 and S2 are he karl, regular. Lungs are clear to auscultation bilaterally. CONSULTATIONS DURING THIS HOSPITALIZATION: Cardiology, Dr. Diana. DISCHARGE MEDICATIONS: Ventolin nebulizer 3 mL every 6 hours as needed, Zofran 4 mg every 6 hours as needed, acetaminophen 650 mg 2 tabs as needed, Lipitor 80 mg at bedtime, galantamine 12 mg 2 times a day, Imodium p.r.n., milk of magnesia p.r.n., melatonin 1-2 tablets at bedtime as needed, multivitam ins 1 tablet daily, nystatin powder topically 2 times a day, Protonix 20 mg daily, rivaroxaban 10 mg daily, aspirin 81 mg daily, Coreg 3.125 mg 2 times a day, iron polysaccharide complex 150 mg 2 times a day, potassium chloride 10 mEq 2 times a day and torsemide 40 mg 2 times a day. HOSPITAL COURSE: Ms. Temple is a pleasant 82-year-old lady who was admitted to [facility] on 05/10/2018. Please refer to Dr. Jennings's history and physical note for further detai ls. Initially, acute on chronic diastolic congestive heart failure exacerbation was suspected. She was also treated with antibiotics for urinary tract infection. The final urine cultures were negativ e. A 2D echocardiogram on 05/13/2018 showed left ventricular ejection fraction of 20%-25%. She is o n a beta ortiz, has not been started on MARCIE inhibitor or ARB secondary to renal failure. She also had severe mitral regurgitation, mild to moderate aortic stenosis, moderate to severe tricuspid regur gitation and moderately elevated pulmonary artery pressure. She was treated with intravenous diureti cs. She was seen by Cardiology Service. She had a nuclear stress test on 05/15/2018, which showed h ypokinesis with multiple areas of nonreversible myocardial perfusion defects. Cardiology Service fel t that there would be no significant benefit to recatheterization. She has been advised medical ther apy. She also had runs of atrial fibrillation and atrial flutter. Her digoxin was discontinued during thi s hospitalization. Her beta ortiz was switched from metoprolol to carvedilol. Her torsemide dose was also increased during this hospitalization. On the day of discharge, she has white count 8100, hemoglobin 9.7, and platelet count 249,000. Sodiu m 132, potassium 3.9, blood urea nitrogen 44 and creatinine 1.56. During this hospitalization, she h ad decreased iron of 19. Iron saturation percent was 6. She received intravenous iron during this h ospitalization. Many thanks for allowing me to participate in your patient's care. Please feel free to contact me wi th any questions or concerns. DISCHARGE DESTINATION: [facility], from where patient was admitted to the hospital. TOTAL AMOUNT OF TIME SPENT COORDINATING THIS DISCHARGE: 32 minutes.
[2018-05-19] MEDS ORDERED: Torsemide 20 MG TAB PO SCH (09:00)
== END 2018-05-18 16:42 | DRG 291 ==
LOC: ERS 15:56 → 2NO 19:48
PROVIDERS: ADMIT Family Medicine; ATTEND Family Medicine
DX: I13.0 Hypertensive heart and chronic kidney disease with heart failure and stage 1 through stage 4 chronic kidney disease, or unspecified chronic kidney disease (principal); I50.21 Acute systolic (congestive) heart failure; I24.8 Other forms of acute ischemic heart disease; N17.9 Acute kidney failure, unspecified; N18.4 Chronic kidney disease, stage 4 (severe); E87.1 Hypo-osmolality and hyponatremia; I48.0 Paroxysmal atrial fibrillation; I73.9 Peripheral vascular disease, unspecified; I25.10 Atherosclerotic heart disease of native coronary artery without angina pectoris; Z66 Do not resuscitate; R74.0 Nonspecific elevation of levels of transaminase and lactic acid dehydrogenase [LDH]; I25.5 Ischemic cardiomyopathy; F03.90 Unspecified dementia, unspecified severity, without behavioral disturbance, psychotic disturbance, mood disturbance, and anxiety; I35.0 Nonrheumatic aortic (valve) stenosis; I34.0 Nonrheumatic mitral (valve) insufficiency; D50.9 Iron deficiency anemia, unspecified; Z79.82 Long term (current) use of aspirin; Z79.01 Long term (current) use of anticoagulants; Z95.820 Peripheral vascular angioplasty status with implants and grafts; Z95.1 Presence of aortocoronary bypass graft; Z95.0 Presence of cardiac pacemaker; Z82.49 Family history of ischemic heart disease and other diseases of the circulatory system
CPT/HCPCS: 36415; 36416; 71045; 78452; 80048; 80053; 80162; 81003; 81015; 82553; 82565; 82728; 83540; 83550; 83690; 83735; 83880; 84484; 85007; 85014; 85018; 85025; 85027; 85049; 85610; 85730; 87086; 93005; 93017; 93306; 93798; 94760; 96374; A9500; G8978-GP-CJ; G8979-GP-CJ; G8980-GP-CJ; J0153; J0696; J1650; J1885; J1940; J2405; J2916; J7050; Q0162

== ENCOUNTER 2018-05-20 16:17 | Inpatient (IN) | payer MEDICARE, MEDICAID ==
--- NOTE | 2018-05-20 17:38 | RAD ---
UPRIGHT PORTABLE CHEST ONE VIEW; 05/20/18 HISTORY: 83-year-old female with history of chest pain. COMPARISON: 05/10/18. There is cardiomegaly with bilateral pleural effusions, greater on the left side and bilateral vascul ar congestion and some interstitial edema with little change, possibly very slight improvement from t he prior study. No evidence for confluent lobar pneumonia. IMPRESSION: Cardiomegaly with vascular congestion and interstitial edema and pleural effusions. Little change, po ssibly very slightly improved from the prior study of 05/10/18. POS: [facility]
[2018-05-20 17:43] LABS: Mean Corpuscular HGB CONC 28.4 g/dL (32.0-36.0); Mean Corpuscular Hemoglobin 21.3 pg (27.0-31.0); Mean Corpuscular Volume 74.9 fL (78.0-98.0); Mean Platelet Volume 10.5 fL (7.4-10.4); Platelet Count 267 thou/uL (130-400); RBC Distribution Width 19.6 % (11.5-14.5); Red Blood Cell (RBC) Count 5.18 mill/uL (4.20-5.40); White Blood Cell (WBC) Count 8.3 thou/uL (4.8-10.8)
[2018-05-20 18:01] LABS: #Basophils 0.1 thou/uL (0.0-0.2); #Eosinphils 0.2 thou/uL (0.0-0.7); #Lymphocytes 0.9 thou/uL (1.20-3.40); #Monocytes 0.6 thou/uL (0.11-0.59); #Neutrophils 6.5 thou/uL (1.40-6.50); %Basophils 1.8 % (0.0-1.0); %Eosinophils 2.9 % (0.0-10.0); %Lymphocytes 10.5 % (21.0-51.0); %Neutrophils 77.8 % (42.0-75.0); Acanthocytes SLIGHT = 1-5 cells (100X) (None Seen); Anisocytosis SLIGHT = 6-15 cells (100X) (0-5/hpf); Hypochromia SLIGHT = 6-15 cells (100X) (0-5/hpf); MDiff Complete? YES; Microcytosis SLIGHT = 6-15 cells (100X) (0-5/hpf); PLT Morphology Comment Appears Adequate; Poikilocytosis SLIGHT = 6-15 cells (100X) (0-5/hpf); Polychromasia SLIGHT = 2-3 cells (100X) (0-2/hpf); Target Cells SLIGHT = 2-5 cells (100X) (0-1/hpf)
[2018-05-20 18:04] LABS: ALT (SGPT) 68 U/L (8-55); AST (SGOT) 73 U/L (5-34); Albumin 3.1 g/dL (3.4-4.8); Alkaline Phosphatase 141 U/L (40-150); Anion Gap 16 mmol/L (10-20); BUN (Urea Nitrogen) 48 mg/dL (9.8-20.1); Bilirubin, Total 1.1 mg/dL (0.2-1.2); CK (CPK) 181 U/L (29-168); Calc. Creatinine Clearance 0 mL/min (70-130); Calcium 9.1 mg/dL (7.8-10.44); Carbon Dioxide 26 mmol/L (23-31); Chloride 93 mmol/L (98-107); Estimated GFR-MDRD 22; Globulin 4.7 g/dL (2.4-3.5); Glucose 109 mg/dL (83-110); Potassium 4.5 mmol/L (3.5-5.1); Protein, Total 7.8 g/dL (6.0-8.3); Sodium 130 mmol/L (136-145)
[2018-05-20 18:08] LABS: CKMB 5.2 ng/mL (0-6.6)
[2018-05-20 18:11] LABS: Bilirubin Negative (Negative); Blood, Urine Small (Negative); Clarity CLEAR (Clear); Glucose, Urine (Dipstick) Negative (Negative); Leukocyte Trace (Negative); Nitrite Negative (Negative); Protein, Urine (Dipstick) Trace mg/dL (Neg-Trace); Specific Gravity, Urine 1.008 (1.002-1.036); Urobilinogen 0.2 mg/dL (0.2-1.0)
[2018-05-20 18:15] LABS: Bacteria/HPF None Seen HPF (None Seen); Pathc Cast-AUWi Flag 4.79 (0-2.49); Squamous Epithelial 0-3 HPF (0-3); WBC/HPF 0-3 HPF (0-3)
[2018-05-20 18:16] LABS: Hyaline Casts/LPF 0-3 HYALINE CAST LPF (0-3 Hyaline); Manual Microscopic Reviewed? No Path Casts Seen
[2018-05-20 18:17] LABS: Troponin I 0.036 ng/mL (< 0.028)
--- NOTE | 2018-05-20 19:09 | CT ---
ABDOMEN AND PELVIC CT SCAN WITHOUT IV CONTRAST: 05/20/18 HISTORY: 83-year-old female with history of upper abdominal pain and bilateral leg swelling. Moderate to large bilateral pleural effusions. Cardiomegaly. Midline sternotomy and coronary artery b ypass changes. Extensive calcific changes of the aorta. Bibasilar parenchymal changes in both lung zo adelita evidence for some partial atelectasis. Some scattered ground glass opacity changes in the visuali zed lungs, nonspecific possibly some edema. There is evidence for anasarca with extensive subcutaneou s fat stranding. There is moderate amount of ascites. The liver, pancreas, spleen, and adrenal glands are unremarkable. There is a faint opacity within the gallbladder certainly concerning for a gallsto ne without evidence for gallbladder wall thickening or pericholecystic fluid. Extensive renal vascula r calcifications. No evidence for aortic aneurysm. Sigmoid colon diverticulosis without acute diverti culitis. Poorly defined uterus and adnexal regions. IMPRESSION: Moderate bilateral pleural effusions with some bilateral partial atelectatic changes and some nonspec ific ground glass opacity changes in both visualized lower lungs. Moderate ascites. Extensive arteria l vascular calcific disease. Sigmoid colon diverticulosis without acute diverticulitis. Evidence for anasarca. POS: [facility]
[2018-05-20] MEDS ORDERED: Furosemide 40 MG/4 ML VIAL ONE (19:36)
[2018-05-20 21:02] LABS: Troponin I 0.035 ng/mL (< 0.028)
[2018-05-20] MEDS ORDERED: Ondansetron PF 4 MG/2 ML Vial IVP PRN (22:56)
[2018-05-20] MEDS ORDERED: Ondansetron ODT 4 MG TAB SL PRN (22:56)
[2018-05-20 23:52] LABS: Troponin I 0.032 ng/mL (< 0.028)
[2018-05-21] MEDS ORDERED: Melatonin 3 MG TAB PO SCH ×2 (00:30→23:00)
[2018-05-21] MEDS ORDERED: Senokot S 8.6-50 MG TAB PO PRN (02:42)
[2018-05-21] MEDS ORDERED: Nystatin Powder 15 GM BOT TOP PRN (02:44)
[2018-05-21] MEDS ORDERED: Acetaminophen 325 MG TAB PO PRN (02:44)
[2018-05-21] MEDS ORDERED: Albuterol Sulfate 2.5 mg/3 ml Neb NEB PRN (02:44)
[2018-05-21] MEDS ORDERED: Ondansetron ODT 4 MG TAB PO PRN (02:44)
[2018-05-21] MEDS ORDERED: Melatonin 3 MG TAB PO PRN (02:44)
--- NOTE | 2018-05-21 03:21 | HP ---
PRIMARY CARE PHYSICIAN: Dr. Yuly Sepulveda. CHIEF COMPLAINT: Shortness of breath. HISTORY OF PRESENT ILLNESS: Ms. Temple is a pleasant 83-year-old lady who was seen at [facility] on 05/21/2018. She was hospitalized here from 04/23/2018 to 05/18/2018 for acu te systolic congestive heart failure. Please refer to my discharge summary dated 05/18/2018 for furt her details. She reports that she started feeling short of breath after returning to [employer]. She also rep orts bilateral lower extremity swelling and generalized weakness. She reports that she does not feel like her diuretics are working. She denies any chest pain. She denies any cough, fevers, or chills . REVIEW OF SYSTEMS: All other systems reviewed and found to be negative. PAST MEDICAL HISTORY: Systolic congestive heart failure; ischemic cardiomyopathy; chronic kidney dis ease, stage 4; coronary artery disease; atrial fibrillation; peripheral vascular disease; chronic obs tructive pulmonary disease; gastroesophageal reflux disease; Alzheimer's disease; and iron deficiency anemia. PAST SURGICAL HISTORY: section, left carotid endarterectomy, right leg surgery for arterial insufficiency, coronary artery bypass graft surgery, pacemaker placement. PSYCHIATRIC HISTORY: Anxiety and depression. SOCIAL HISTORY: Patient denies tobacco use, alcohol use, or recreational drug use. 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 CODE STATUS: I discussed her code status. She is FULL CODE. ALLERGIES: IODINE. CURRENT MEDICATIONS: Patient is on the medications that she was discharged from last hospitalization , please refer to my discharge summary dated 05/18/2018 for further details. PHYSICAL EXAMINATION: GENERAL: Ms. Temple is awake and alert, not in acute distress. VITAL SIGNS: Blood pressure is 138/81, pulse 84, respiratory rate 16, and oxygen saturation 94% on 2 liters of oxygen. She is afebrile. EYES: No scleral icterus. No conjunctival pallor. ENT: Moist mucosal membranes, no oropharyngeal erythema or exudates. NECK: Supple, nontender, trachea is midline. RESPIRATORY: Accessory muscles of breathing are not active. Chest wall movements are symmetric bila terally. She has bilateral crackles. CARDIOVASCULAR: S1 and S2 are heard, regular. Peripheral pulses palpable. No carotid bruit, no per icardial rub. ABDOMEN: Soft, nontender, bowel sounds are heard, no hepatomegaly, no splenomegaly. NEUROLOGIC: Cranial nerves II through XII intact. MUSCULOSKELETAL: Power is 5/5 in all four extremities. She has bilateral lower extremity edema. SKIN: No rashes or subcutaneous nodules. LYMPHATIC: No cervical lymphadenopathy. PSYCHIATRIC: Normal mood, normal affect, patient is oriented to person and place, not to time. LABORATORY DATA: Ms. Temple's labs and investigations were reviewed. I reviewed her electrocardio gram, which shows electronic ventricular paced rhythm. I also reviewed her chest x-ray, which shows interstitial edema. She also had CT scan of the abdomen and pelvis, which showed moderate bilateral pleural effusions with some bilateral partial atelectatic changes and some nonspecific ground glass o pacity changes in both visualized lower lungs. She had moderate ascites. She had sigmoid colon dive rticulosis without acute diverticulitis. She had anasarca. She has normal white count, microcytic a nemia with hemoglobin 11.0, normal platelet count, decreased sodium of 130, normal potassium, elevate d blood urea nitrogen of 48, elevated creatinine of 2.14, last known creatinine 1.56 on 05/18/2018. Normal total bilirubin, elevated AST of 73, elevated ALT of 68, indeterminate troponin I of 0.036, el evated BNP of 2465, and decreased albumin of 3.1. Urinalysis is positive for blood and trace leukocy te esterase. ASSESSMENT AND PLAN: Ms. Temple is a pleasant 83-year-old lady who was seen at [facility] on 05/21/2018. Her problem list includes: 1. Acute systolic congestive heart failure. Ms. Temple is presenting with recurrence of acute sys tolic congestive heart failure. She reports that her oral torsemide is not working. She will be adm itted to the hospital and treated with intravenous furosemide. Further management depending on clini jose alberto course. Cardiology service will be consulted for optimization of her congestive heart failure me dications. She is on a beta ortiz, but is not on MARCIE inhibitor or ARB secondary to renal insuffici ency. 2. Acute on chronic stage 3 kidney disease. Patient will be receiving intravenous diuretics. We wi ll follow creatinine closely and back off on diuretics if renal function worsens. 3. Hypertension: We will continue patient's home medications, monitor vital signs and titrate antih ypertensives as needed. 4. Chronic obstructive pulmonary disease: Appears to be stable. 5. Hyponatremia: Mild, we will recheck sodium level. 6. Alzheimer's disease. Continue galantamine. Many thanks for allowing me to participate in your patient's care. Please feel free to contact me wi th any questions or concerns. LEVEL OF RISK: High. LEVEL OF COMPLEXITY: High.
[2018-05-21 04:27] LABS: #Basophils 0.1 thou/uL (0.0-0.2); #Eosinphils 0.2 thou/uL (0.0-0.7); #Lymphocytes 0.9 thou/uL (1.20-3.40); #Monocytes 0.6 thou/uL (0.11-0.59); #Neutrophils 5.6 thou/uL (1.40-6.50); %Basophils 1.5 % (0.0-1.0); %Eosinophils 2.4 % (0.0-10.0); %Lymphocytes 12.5 % (21.0-51.0); %Monocytes 8.3 % (0.0-10.0); %Neutrophils 75.3 % (42.0-75.0); Hemoglobin 9.8 g/dL (12.0-16.0); Mean Corpuscular HGB CONC 29.4 g/dL (32.0-36.0); Mean Corpuscular Hemoglobin 21.8 pg (27.0-31.0); Mean Corpuscular Volume 74.1 fL (78.0-98.0); Mean Platelet Volume 10.3 fL (7.4-10.4); Platelet Count 259 thou/uL (130-400); RBC Distribution Width 19.4 % (11.5-14.5); Red Blood Cell (RBC) Count 4.52 mill/uL (4.20-5.40); White Blood Cell (WBC) Count 7.5 thou/uL (4.8-10.8)
[2018-05-21 04:44] LABS: Anion Gap 13 mmol/L (10-20); BUN (Urea Nitrogen) 49 mg/dL (9.8-20.1); Calc. Creatinine Clearance 26 mL/min (70-130); Calcium 9.1 mg/dL (7.8-10.44); Carbon Dioxide 30 mmol/L (23-31); Chloride 93 mmol/L (98-107); Estimated GFR-MDRD 24; Glucose 101 mg/dL (83-110); Magnesium 2.1 mg/dL (1.6-2.6); Potassium 4.1 mmol/L (3.5-5.1); Sodium 132 mmol/L (136-145)
[2018-05-21] MEDS: Furosemide 40 MG/4 ML VIAL SLOW IVP SCH ×2 (05:55→14:55)
[2018-05-21] MEDS: Potassium Chloride 10 MEQ TAB PO SCH ×2 (08:51→17:29)
[2018-05-21] MEDS: Iron Polysaccharides Complex 150 MG CAP PO SCH ×2 (08:51→17:29)
[2018-05-21] MEDS: Multivitamin W/ Minerals 1 TAB PO SCH (08:51)
[2018-05-21] MEDS: Carvedilol 3.125 MG TAB PO SCH ×2 (08:51→17:30)
[2018-05-21] MEDS ORDERED: Metolazone 5 MG TAB PO SCH (15:00)
[2018-05-21] MEDS ORDERED: Furosemide 40 MG/4 ML VIAL SLOW IVP SCH (15:15)
[2018-05-21] MEDS ORDERED: Digoxin 0.5 MG/2 ML AMP SLOW IVP SCH ×3 (15:15→18:30)
--- NOTE | 2018-05-21 15:40 | PDOC.PN ---
- Subjective Encounter Start Date: 05/21/18 Encounter Start Time: 10:15 Subjective: f/u on admission for acute/chronic chf exacerbation -: pitting edema to lower extremities, reports they are painful -: denies SOB, chest pain - Objective Resuscitation Status: Resuscitation Status FULL:Full Resuscitation Vital Signs & Weight: Vital Signs (12 hours) Temp Pulse Resp BP Pulse Ox 05/21/18 15:15 97.7 F 79 20 117/65 96 05/21/18 11:42 96.1 F L 80 20 99/60 97 05/21/18 07:54 98.3 F 79 20 122/61 92 L Weight Weight 74.797 kg I&O: 05/20/18 05/21/18 05/22/18 06:59 06:59 06:59 Intake Total 350 Output Total 300 Balance 50 Result Diagrams: 05/21/18 03:41 05/21/18 03:41 Phys Exam - Physical Examination Constitutional: NAD HEENT: PERRLA, moist MMs Neck: no nodes, no JVD Respiratory: no wheezing, no rhonchi, clear to auscultation bilateral diminished breath sounds at bases Cardiovascular: RRR Gastrointestinal: soft, non-tender Musculoskeletal: edema present pitting edema noted to bilateral extremities Neurological: non-focal, normal sensation Lymphatic: no nodes Psychiatric: normal affect, A&O x 3 Skin: no rash Deviation from normal: pitting edema to bilateral lower extremities, tender to palpation Dx/Plan (1) Acute systolic (congestive) heart failure Code(s): I50.21 - ACUTE SYSTOLIC (CONGESTIVE) HEART FAILURE Status: Acute Comment: on IV furosemide, will continue today (2) Generalized weakness Code(s): R53.1 - WEAKNESS Status: Acute Comment: likely from anemia from GI blod loss. [facility], Continue oral iron. (3) CAD (coronary artery disease) Code(s): I25.10 - ATHSCL HEART DISEASE OF [place] CORONARY ARTERY W/O ANG PCTRS Status: Chronic Comment: on aspirin, statin and betablocker. (4) CKD (chronic kidney disease) stage 4, GFR 15-29 ml/min Code(s): N18.4 - CHRONIC KIDNEY DISEASE, STAGE 4 (SEVERE) Status: Chronic Comment: stable (5) Hypertension Code(s): I10 - ESSENTIAL (PRIMARY) HYPERTENSION Status: Chronic (6) Chronic obstruct airways disease Status: Chronic - Plan cont current plan of care -: Dr. Chatterjee saw patient today, added additional diurectics -: Converted to full inpatient, -: will monitor labs, I &O, * .
--- NOTE | 2018-05-21 16:56 | CON ---
DATE OF CONSULTATION: 05/21/2018 HISTORY OF PRESENT ILLNESS: Patient is an unfortunate 83-year-old woman with severe coronary artery disease, status post coronary bypass surgery who presents with recurrent dyspnea and lower extremity swelling. The patient has a history of coronary bypass graft surgery. She was also found recently t o have a severe cardiomyopathy. The patient was just released from the hospital after being diuresed . The patient states she became short of breath and noted having lower extremity swelling. The ambrosio ent denied having any chest discomfort. PAST MEDICAL HISTORY: Significant for, 1. Coronary artery disease. 2. Aortic stenosis. 3. Hypertension. 4. History of biventricular pacemaker. 5. Atrial fibrillation, status post AV antoinette ablation. 6. Chronic obstructive pulmonary disease. 7. Hypertension. PAST SURGICAL HISTORY: Carotid endarterectomy and coronary bypass surgery. MEDICATIONS: See nursing list. ALLERGIES: She is allergic to IODINE. SOCIAL HISTORY: Nonsmoker. FAMILY HISTORY: Positive family history of heart disease. PHYSICAL EXAMINATION: GENERAL: This is an elderly woman in no acute distress. VITAL SIGNS: Blood pressure 99/60. NECK: Showed jugular venous distention to the jaw. LUNGS: Have crackles throughout both lung bases. HEART: Regular rate and rhythm, normal S1 and S2 with a 2/6 systolic murmur. ABDOMEN: Distended. EXTREMITIES: Showed severe bilateral edema. LABORATORY DATA AND IMAGING DATA: Sodium 132, potassium 4.1, chloride 93, bicarbonate 30, BUN 49, cr eatinine is 1.9. Troponin was 0.035. BNP level was 2465. Her white blood cell count was 7.5, hemog lobin 9.8, hematocrit 33.5 and platelets are 259. Her EKG revealed atrial fibrillation with ventricu lar paced rhythm. IMPRESSION: 1. Congestive heart failure. 2. Severe cardiomyopathy. 3. Aortic stenosis. 4. Chronic atrial fibrillation. 5. History of biventricular pacemaker. 6. History of coronary bypass surgery. 7. Renal insufficiency. 8. Nonsustained ventricular tachycardia. This patient presents with recurrent CHF. The patient appears to have significant volume overload. We will try to attempt to increase the patient's diuretics. We will give a dose of metolazone. We w ill add Lasix. We will start the patient on digoxin. We will follow this patient with you through h ospitalization.
[2018-05-21] MEDS: Rivaroxaban 10 MG TAB PO SCH (17:30)
[2018-05-21] MEDS: Atorvastatin Calcium 40 MG TAB PO SCH (20:10)
[2018-05-22] MEDS ORDERED: Digoxin 0.5 MG/2 ML AMP SLOW IVP SCH (03:15)
[2018-05-22] MEDS ORDERED: Sodium Chloride 0.9% 10 ML ONE ×2 (05:18→14:46)
[2018-05-22] MEDS: Furosemide 40 MG/4 ML VIAL SLOW IVP SCH ×2 (05:21→15:11)
[2018-05-22 05:49] LABS: ALT (SGPT) 58 U/L (8-55); AST (SGOT) 61 U/L (5-34); Alkaline Phosphatase 127 U/L (40-150); Anion Gap 14 mmol/L (10-20); BUN (Urea Nitrogen) 49 mg/dL (9.8-20.1); Bilirubin, Total 1.4 mg/dL (0.2-1.2); Calc. Creatinine Clearance 28 mL/min (70-130); Calcium 9.4 mg/dL (7.8-10.44); Carbon Dioxide 29 mmol/L (23-31); Chloride 91 mmol/L (98-107); Estimated GFR-MDRD 27; Globulin 4.4 g/dL (2.4-3.5); Glucose 99 mg/dL (83-110); Potassium 4.1 mmol/L (3.5-5.1); Protein, Total 7.4 g/dL (6.0-8.3); Sodium 130 mmol/L (136-145)
[2018-05-22 05:51] LABS: #Basophils 0.1 thou/uL (0.0-0.2); #Eosinphils 0.2 thou/uL (0.0-0.7); #Lymphocytes 0.9 thou/uL (1.20-3.40); #Monocytes 0.7 thou/uL (0.11-0.59); %Basophils 1.6 % (0.0-1.0); %Eosinophils 2.3 % (0.0-10.0); %Lymphocytes 11.9 % (21.0-51.0); %Monocytes 8.9 % (0.0-10.0); %Neutrophils 75.3 % (42.0-75.0); Hemoglobin 10.6 g/dL (12.0-16.0); Mean Corpuscular HGB CONC 29.2 g/dL (32.0-36.0); Mean Corpuscular Volume 75.2 fL (78.0-98.0); Platelet Count 247 thou/uL (130-400); RBC Distribution Width 21.6 % (11.5-14.5); Red Blood Cell (RBC) Count 4.81 mill/uL (4.20-5.40); White Blood Cell (WBC) Count 7.9 thou/uL (4.8-10.8)
--- NOTE | 2018-05-22 09:46 | PDOC.PN ---
- Subjective Encounter Start Date: 05/22/18 Encounter Start Time: 09:40 Subjective: f/u for acute/chronic systolic CHF with EF 20-25% on IV Lasix and -: Zaroxolyn. Feels ok overall except for LE edema persisting. No SOB. - Objective Resuscitation Status: Resuscitation Status FULL:Full Resuscitation MAR Reviewed: Yes Vital Signs & Weight: Vital Signs (12 hours) Temp Pulse Resp BP Pulse Ox 05/22/18 07:23 98.3 F 79 18 137/65 100 05/22/18 05:25 97.1 F L 83 24 H 135/63 96 Weight Weight 158 lb 9.6 oz I&O: 05/21/18 05/22/18 05/23/18 06:59 06:59 06:59 Intake Total 350 1470 Output Total 300 2650 Balance 50 -1180 Result Diagrams: 05/22/18 05:06 05/22/18 05:06 Additional Labs: Laboratory Tests 03/09/17 03/10/17 05/10/18 19:38 04:18 16:36 Sodium 132 L Creatinine 2.09 H Creatine Kinase 440 H B-Natriuretic Peptide 965.5 H 1202.2 H 05/10/18 05/11/18 05/20/18 16:36 04:56 17:32 Sodium 130 L Creatinine 2.14 H Creatine Kinase B-Natriuretic Peptide 2890.0 H 2907.2 H 05/20/18 05/21/18 17:32 03:41 Sodium 132 L Creatinine 1.99 H Creatine Kinase B-Natriuretic Peptide 2465.2 H Radiology Reviewed by me: Yes (2D echo - EF 20-25%, LAE) EKG Reviewed by me: Yes (Tele - Paced in 80's) Phys Exam - Physical Examination Constitutional: NAD HEENT: PERRLA, sclera anicteric, oral pharynx no lesions Neck: no nodes, no JVD, supple, full ROM diminished in bases o/w clear II/ MIKI, S1, S2 Cardiovascular: RRR, no rub, gallop Gastrointestinal: soft, non-tender, no distention, positive bowel sounds Musculoskeletal: pulses present, edema present Neurological: normal sensation, moves all 4 limbs Skin: normal turgor, cap refill <2 seconds Dx/Plan (1) Acute on chronic systolic (congestive) heart failure Code(s): I50.23 - ACUTE ON CHRONIC SYSTOLIC (CONGESTIVE) HEART FAILURE Status : Acute Comment: EF 20-25%, continue Lasix 80mg IV BID, Zaroxolyn 5mg daily, daily weight (2) VERENICE (acute kidney injury) Code(s): N17.9 - ACUTE KIDNEY FAILURE, UNSPECIFIED Status: Acute Comment: Improved, avoid nephrotoxic meds and limit contrast exposure, serial creatinine (3) CKD (chronic kidney disease) stage 4, GFR 15-29 ml/min Code(s): N18.4 - CHRONIC KIDNEY DISEASE, STAGE 4 (SEVERE) Status: Chronic Comment: near baseline CKD, avoid nephrotoxic meds and limit contrast exposure (4) Hypertension Code(s): I10 - ESSENTIAL (PRIMARY) HYPERTENSION Status: Chronic Qualifiers: Hypertension type: essential hypertension Qualified Code(s): I10 - Essential (primary) hypertension Comment: Continue Carvedilol, Lisinopril, serial monitoring (5) Generalized weakness Code(s): R53.1 - WEAKNESS Status: Acute Comment: PT for mobilization (6) Ischemic cardiomyopathy Code(s): I25.5 - ISCHEMIC CARDIOMYOPATHY Status: Acute Comment: EF 20-25%, medical optimization, Lasix, ASA, Lipitor, Digoxin and Lisinopril - Plan PT/OT, social services designee, out of bed/ambulate Stable overall -: Continue Lasix and Zaroxolyn -: Continue Digoxin, Coreg -: PT for mobilization -: AM lab: CMP, CBC * .
[2018-05-22] MEDS: Lisinopril 2.5 MG TAB PO SCH (10:06)
[2018-05-22] MEDS: Iron Polysaccharides Complex 150 MG CAP PO SCH ×2 (10:07→17:42)
[2018-05-22] MEDS: Multivitamin W/ Minerals 1 TAB PO SCH (10:07)
[2018-05-22] MEDS: Metolazone 5 MG TAB PO SCH (10:07)
[2018-05-22] MEDS: Digoxin 0.125 MG TAB PO SCH (10:07)
[2018-05-22] MEDS: Potassium Chloride 10 MEQ TAB PO SCH ×2 (10:07→17:43)
[2018-05-22] MEDS: Carvedilol 3.125 MG TAB PO SCH ×2 (10:08→17:42)
[2018-05-22 17:13] LABS: Hemoglobin 11.1 g/dL (12.0-16.0); Platelet Count 238 thou/uL (130-400)
[2018-05-22] MEDS: Rivaroxaban 10 MG TAB PO SCH (17:43)
[2018-05-22] MEDS: Atorvastatin Calcium 40 MG TAB PO SCH (21:20)
[2018-05-22] MEDS: Melatonin 3 MG TAB PO PRN (21:21)
[2018-05-23 05:56] LABS: ALT (SGPT) 50 U/L (8-55); AST (SGOT) 49 U/L (5-34); Albumin 2.8 g/dL (3.4-4.8); Alkaline Phosphatase 126 U/L (40-150); Anion Gap 13 mmol/L (10-20); BUN (Urea Nitrogen) 44 mg/dL (9.8-20.1); Bilirubin, Total 1.7 mg/dL (0.2-1.2); Calc. Creatinine Clearance 32 mL/min (70-130); Calcium 9.2 mg/dL (7.8-10.44); Carbon Dioxide 37 mmol/L (23-31); Chloride 87 mmol/L (98-107); Estimated GFR-MDRD 35; Globulin 4.2 g/dL (2.4-3.5); Glucose 94 mg/dL (83-110); Potassium 3.8 mmol/L (3.5-5.1); Sodium 133 mmol/L (136-145)
[2018-05-23 06:20] LABS: #Eosinphils 0.2 thou/uL (0.0-0.7); #Lymphocytes 0.8 thou/uL (1.20-3.40); #Monocytes 0.6 thou/uL (0.11-0.59); #Neutrophils 6.4 thou/uL (1.40-6.50); %Basophils 0.4 % (0.0-1.0); %Eosinophils 2.9 % (0.0-10.0); %Lymphocytes 9.9 % (21.0-51.0); %Monocytes 7.3 % (0.0-10.0); %Neutrophils 79.6 % (42.0-75.0); Acanthocytes SLIGHT = 1-5 cells (100X) (None Seen); Anisocytosis SLIGHT = 6-15 cells (100X) (0-5/hpf); Elliptocytes SLIGHT = 2-5 cells (100X) (0-1/hpf); Hypochromia SLIGHT = 6-15 cells (100X) (0-5/hpf); MDiff Complete? YES; Mean Corpuscular Hemoglobin 21.9 pg (27.0-31.0); Mean Corpuscular Volume 75.5 fL (78.0-98.0); Mean Platelet Volume 10.2 fL (7.4-10.4); Microcytosis SLIGHT = 6-15 cells (100X) (0-5/hpf); Platelet Count 245 thou/uL (130-400); RBC Distribution Width 22.3 % (11.5-14.5); Red Blood Cell (RBC) Count 5.05 mill/uL (4.20-5.40); Target Cells SLIGHT = 2-5 cells (100X) (0-1/hpf); White Blood Cell (WBC) Count 8.1 thou/uL (4.8-10.8)
[2018-05-23] MEDS: Furosemide 40 MG/4 ML VIAL SLOW IVP SCH ×2 (06:22→14:31)
[2018-05-23] MEDS: Digoxin 0.125 MG TAB PO SCH (08:53)
[2018-05-23] MEDS: Potassium Chloride 10 MEQ TAB PO SCH ×2 (08:53→16:26)
[2018-05-23] MEDS: Iron Polysaccharides Complex 150 MG CAP PO SCH ×2 (08:53→17:14)
[2018-05-23] MEDS: Carvedilol 3.125 MG TAB PO SCH ×2 (08:53→16:26)
[2018-05-23] MEDS: Multivitamin W/ Minerals 1 TAB PO SCH (08:54)
[2018-05-23] MEDS: Lisinopril 2.5 MG TAB PO SCH (08:54)
[2018-05-23] MEDS: Metolazone 5 MG TAB PO SCH (08:54)
--- NOTE | 2018-05-23 10:26 | PDOC.PN ---
- Subjective Encounter Start Date: 05/23/18 Encounter Start Time: 10:15 Subjective: f/u CHF with current IV Lasix. 13lb weight loss since admit. Still -: with some LE edema but improved. c/o L MF swelling and pain for -: over a week. Nail is thickened and painful. - Objective Resuscitation Status: Resuscitation Status FULL:Full Resuscitation MAR Reviewed: Yes Vital Signs & Weight: Vital Signs (12 hours) Temp Pulse Resp BP BP Pulse Ox 05/23/18 08:54 75 112/55 L 05/23/18 08:53 75 05/23/18 08:00 98 F 75 18 112/55 L 97 05/23/18 04:20 97.6 F 75 16 115/56 L 94 L Weight Weight 149 lb 3.2 oz I&O: 05/22/18 05/23/18 05/24/18 06:59 06:59 06:59 Intake Total 1470 940 Output Total 2650 4400 Balance -1180 -3460 Result Diagrams: 05/23/18 05:23 05/23/18 05:23 Additional Labs: Laboratory Tests 05/10/18 05/10/18 05/11/18 16:36 16:36 04:56 Sodium 132 L Creatinine 2.09 H Creatine Kinase 440 H B-Natriuretic Peptide 2890.0 H 2907.2 H 05/20/18 05/20/18 05/21/18 17:32 17:32 03:41 Sodium 130 L 132 L Creatinine 2.14 H 1.99 H Creatine Kinase B-Natriuretic Peptide 2465.2 H EKG Reviewed by me: Yes (Tele - V-paced) Phys Exam - Physical Examination Constitutional: NAD HEENT: PERRLA, sclera anicteric, oral pharynx no lesions Neck: no nodes, no JVD, supple, full ROM Respiratory: no wheezing, no rales, no rhonchi, clear to auscultation bilateral S1, S2 Cardiovascular: RRR, no rub, gallop Gastrointestinal: soft, non-tender, no distention, positive bowel sounds LE edema decreased in last 24h Musculoskeletal: pulses present, edema present Neurological: normal sensation, moves all 4 limbs Skin: normal turgor, cap refill <2 seconds Deviation from normal: L MF nail bed with edema, crusting and TTP Dx/Plan (1) Acute on chronic systolic (congestive) heart failure Code(s): I50.23 - ACUTE ON CHRONIC SYSTOLIC (CONGESTIVE) HEART FAILURE Status : Acute Comment: EF 20-25%, continue Lasix 80mg IV BID, Zaroxolyn 5mg daily, daily weight, continue IV Lasix another 24h then decrease dose and consider transition to po (2) VERENICE (acute kidney injury) Code(s): N17.9 - ACUTE KIDNEY FAILURE, UNSPECIFIED Status: Acute Comment: Improved, avoid nephrotoxic meds and limit contrast exposure, serial creatinine (3) CKD (chronic kidney disease) stage 4, GFR 15-29 ml/min Code(s): N18.4 - CHRONIC KIDNEY DISEASE, STAGE 4 (SEVERE) Status: Chronic Comment: near baseline CKD, avoid nephrotoxic meds and limit contrast exposure (4) Hypertension Code(s): I10 - ESSENTIAL (PRIMARY) HYPERTENSION Status: Chronic Qualifiers: Hypertension type: essential hypertension Qualified Code(s): I10 - Essential (primary) hypertension Comment: Continue Carvedilol, Lisinopril, serial monitoring (5) Generalized weakness Code(s): R53.1 - WEAKNESS Status: Acute Comment: PT for mobilization (6) Ischemic cardiomyopathy Code(s): I25.5 - ISCHEMIC CARDIOMYOPATHY Status: Acute Comment: EF 20-25%, medical optimization, Lasix, ASA, Lipitor, Digoxin and Lisinopril (7) Paronychia of finger of left hand Code(s): L03.012 - CELLULITIS OF LEFT FINGER Status: Acute Comment: Start Augmentin 500mg BID, local care, Chlorhexidine scrub - Plan continue antibiotics, PT/OT, rn social work, out of bed/ambulate Stable overall -: Continue Lasix 80mg IV BID -: OOB/ambulate with PT -: Start Augmentin 500mg BID -: Likely d/c in 48h * .
[2018-05-23] MEDS ORDERED: Amoxicillin/Potassium Clav 500 MG TAB PO SCH (11:00)
[2018-05-23] MEDS: Acetaminophen 325 MG TAB PO PRN (12:11)
--- NOTE | 2018-05-23 13:22 | PRG ---
DATE OF SERVICE: 05/23/2018 Ms. Temple is back in the hospital with recurrent congestive heart failure. No chest pain. She is still short of breath. PHYSICAL EXAMINATION: VITAL SIGNS: Blood pressure 112/58, pulse 70. LUNGS: Lungs clear anteriorly and laterally. CARDIAC: There is a loud holosystolic murmur 3/6 at the apex of mitral regurgitation. There is also a 2-3/6 systolic murmur at the left upper sternal border. ABDOMEN: Soft, nontender. EXTREMITIES: There is severe edema. PERTINENT LABORATORY: The creatinine is 1.45, it was 1.99 on admission. Sodium is 133, potassium is 3.8, troponin indeterminate at 0.035. EKG shows a narrow complex QRS. BNP was in 2465. Chest x-ra y: Cardiomegaly with vascular congestion. ASSESSMENT: 1. Congestive heart failure. 2. Severe mitral regurgitation. 3. Mild to moderate aortic stenosis. 4. Moderate to severe tricuspid insufficiency. 5. Pulmonary hypertension. 6. Ejection fraction 20-25%. 7. Renal insufficiency. PLAN: 1. Continue diuretic. 2. Unfortunately the prognosis is guarded to poor. The patient also has had AV junction ablation wi th a dual-chamber biventricular pacemaker which is functioning normally. Unfortunately, this patient 's prognosis appears poor. We will follow with you.
[2018-05-23] MEDS: Rivaroxaban 10 MG TAB PO SCH (16:26)
[2018-05-23] MEDS: Amoxicillin/Potassium Clav 500 MG TAB PO SCH (20:31)
[2018-05-23] MEDS: Atorvastatin Calcium 40 MG TAB PO SCH (20:32)
[2018-05-23] MEDS: Melatonin 3 MG TAB PO PRN (21:43)
[2018-05-24] MEDS: Furosemide 40 MG/4 ML VIAL SLOW IVP SCH ×2 (05:49→14:55)
[2018-05-24 06:00] LABS: #Basophils 0.1 thou/uL (0.0-0.2); #Eosinphils 0.3 thou/uL (0.0-0.7); #Lymphocytes 0.8 thou/uL (1.20-3.40); #Monocytes 0.8 thou/uL (0.11-0.59); #Neutrophils 6.4 thou/uL (1.40-6.50); %Basophils 1.1 % (0.0-1.0); %Eosinophils 3.6 % (0.0-10.0); %Lymphocytes 9.6 % (21.0-51.0); %Monocytes 9.8 % (0.0-10.0); %Neutrophils 75.9 % (42.0-75.0); Hemoglobin 10.7 g/dL (12.0-16.0); Mean Corpuscular HGB CONC 29.6 g/dL (32.0-36.0); Mean Corpuscular Hemoglobin 22.5 pg (27.0-31.0); Platelet Count 265 thou/uL (130-400); RBC Distribution Width 22.4 % (11.5-14.5); Red Blood Cell (RBC) Count 4.77 mill/uL (4.20-5.40); White Blood Cell (WBC) Count 8.4 thou/uL (4.8-10.8)
[2018-05-24 06:11] LABS: ALT (SGPT) 47 U/L (8-55); AST (SGOT) 66 U/L (5-34); Albumin 2.6 g/dL (3.4-4.8); Alkaline Phosphatase 116 U/L (40-150); Anion Gap 15 mmol/L (10-20); BUN (Urea Nitrogen) 38 mg/dL (9.8-20.1); Bilirubin, Total 1.5 mg/dL (0.2-1.2); Calc. Creatinine Clearance 36 mL/min (70-130); Calcium 9.1 mg/dL (7.8-10.44); Carbon Dioxide 36 mmol/L (23-31); Chloride 86 mmol/L (98-107); Estimated GFR-MDRD 42; Globulin 4.3 g/dL (2.4-3.5); Glucose 86 mg/dL (83-110); Potassium 4.2 mmol/L (3.5-5.1); Protein, Total 6.9 g/dL (6.0-8.3); Sodium 133 mmol/L (136-145)
[2018-05-24] MEDS: Carvedilol 3.125 MG TAB PO SCH ×2 (09:44→17:14)
[2018-05-24] MEDS: Potassium Chloride 10 MEQ TAB PO SCH ×2 (09:44→17:14)
[2018-05-24] MEDS: Iron Polysaccharides Complex 150 MG CAP PO SCH ×2 (09:45→17:13)
[2018-05-24] MEDS: Amoxicillin/Potassium Clav 500 MG TAB PO SCH ×2 (09:59→21:10)
[2018-05-24] MEDS: Multivitamin W/ Minerals 1 TAB PO SCH (09:59)
[2018-05-24] MEDS: Lisinopril 2.5 MG TAB PO SCH (10:00)
[2018-05-24] MEDS: Metolazone 5 MG TAB PO SCH (10:00)
--- NOTE | 2018-05-24 10:06 | PRG ---
DATE OF SERVICE: 05/24/2018 SUBJECTIVE: She feels "crappy". Specifically what is bothering her more than anything is her legs c ontinue to be very swollen, edematous. PHYSICAL EXAMINATION: VITAL SIGNS: Her blood pressure is 109/53, pulse 80. LUNGS: Clear. CARDIAC: Normal S1, normal S2. ABDOMEN: Soft, nontender. EXTREMITIES: There is moderate to severe edema. LABORATORY DATA: Reviewing the laboratory, she did have a low ferritin on 05/16/2018 and has to chec k with the patient, I think she actually may have got an intravenous iron at that point. The creatin ine fortunately stable at 1.23. ASSESSMENT: 1. Congestive heart failure, systolic, improving. 2. Previous biventricular pacer. 3. Renal function actually improving with estimated GFR of 42. PLAN: 1. Change to Entresto (sacubitril). 2. Stop MARCIE inhibitor. She did not received at this morning. 3. We will check ferritin level tomorrow.
--- NOTE | 2018-05-24 15:15 | PDOC.PN ---
- Subjective Encounter Start Date: 05/24/18 Encounter Start Time: 14:30 Says she feels "crappy". Not more specific. Still has some edema. Voiding well. Complains of pain in the left middle finger. Injured it prior to admission and bent the nail back to mid-matrix. - Objective Resuscitation Status: Resuscitation Status FULL:Full Resuscitation MAR Reviewed: Yes Vital Signs & Weight: Vital Signs (12 hours) Temp Pulse Resp BP Pulse Ox 05/24/18 11:39 99.4 F 74 18 118/84 100 05/24/18 10:00 74 05/24/18 07:52 97.7 F 78 18 111/54 L 92 L 05/24/18 04:00 98.1 F 81 18 109/53 L 98 Weight Weight 141 lb 1.6 oz I&O: 05/23/18 05/24/18 05/25/18 06:59 06:59 06:59 Intake Total 940 1420 Output Total 4400 2800 Balance -3460 -1380 Result Diagrams: 05/24/18 05:14 05/24/18 05:13 Phys Exam - Physical Examination Constitutional: NAD Respiratory: no wheezing, no rales, no rhonchi, clear to auscultation bilateral Cardiovascular: RRR, no significant murmur Gastrointestinal: soft, non-tender, no distention, positive bowel sounds 2-3+ pitting edema BLE to mid-calf Neurological: non-focal Dx/Plan (1) Acute on chronic systolic (congestive) heart failure Code(s): I50.23 - ACUTE ON CHRONIC SYSTOLIC (CONGESTIVE) HEART FAILURE Status : Acute Comment: EF 20-25%, continue Lasix 80mg IV BID, Zaroxolyn 5mg daily, daily weight, continue IV Lasix another 24h then decrease dose and consider transition to po (2) Paronychia of finger of left hand Code(s): L03.012 - CELLULITIS OF LEFT FINGER Status: Acute Comment: Start Augmentin 500mg BID, local care, Chlorhexidine scrub (3) Chronic obstruct airways disease Status: Chronic (4) Hypertension Code(s): I10 - ESSENTIAL (PRIMARY) HYPERTENSION Status: Chronic Qualifiers: Hypertension type: essential hypertension Qualified Code(s): I10 - Essential (primary) hypertension Comment: Continue Carvedilol, Lisinopril, serial monitoring (5) VERENICE (acute kidney injury) Code(s): N17.9 - ACUTE KIDNEY FAILURE, UNSPECIFIED Status: Acute Comment: Improved, avoid nephrotoxic meds and limit contrast exposure, serial creatinine (6) Generalized weakness Code(s): R53.1 - WEAKNESS Status: Acute Comment: PT for mobilization (7) Ischemic cardiomyopathy Code(s): I25.5 - ISCHEMIC CARDIOMYOPATHY Status: Acute Comment: EF 20-25%, medical optimization, Lasix, ASA, Lipitor, Digoxin and Lisinopril (8) CAD (coronary artery disease) Code(s): I25.10 - ATHSCL HEART DISEASE OF [place] CORONARY ARTERY W/O ANG PCTRS Status: Chronic Comment: on aspirin, statin and betablocker. (9) CKD (chronic kidney disease), stage III Code(s): N18.3 - CHRONIC KIDNEY DISEASE, STAGE 3 (MODERATE) Status: Acute - Plan * Continuing to work on diuresis. Cardiology starting Entresto and stopping ACEI. * Down about 13 pounds. Difficult with very poor EF and the CKDIII. * Continue abx for paronychia.
[2018-05-24] MEDS: Rivaroxaban 10 MG TAB PO SCH (17:14)
[2018-05-24 19:43] LABS: Hemoglobin 10.7 g/dL (12.0-16.0); Platelet Count 247 thou/uL (130-400)
--- NOTE | 2018-05-24 20:15 | PRG ---
DATE OF SERVICE: 05/24/2018 [facility] was called on this patient this evening. The patient was apparently trying to get to the bedside commode and slipped and fell down. She had a small scrape on her left cruz area. She also s aid she had mild discomfort initially in her left shoulder that was better and she had full range of motion there. She said specifically that she bounced her head off the floor. Because she is on Xare lto, the [facility] was called. The patient appears to be completely neurologically intact and appro priate with no change in her overall mental status. She has no evidence of a hematoma or contusion o r laceration on her head or scalp. Because she is on the Xarelto and her advanced age, we will get a stat CT of the head to rule out any bleed.
--- NOTE | 2018-05-24 20:29 | CT ---
CT BRAIN: 05/24/18 HISTORY: Fall. 83-year-old female. Noncontrast enhanced CT images of the brain obtained. Brain and bone windows obtained. CT images dem onstrate an old right parietal area of stroke extending into the right occipital region. There is diffuse cortical atrophy and deep white matter ischemic changes seen. No evidence of acute intracranial masses or lesions seen. The calvarium is unremarkable. IMPRESSION: 1. Cortical atrophy and deep white matter ischemic changes. 2. 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 POS: CH[facility]
[2018-05-24] MEDS: Atorvastatin Calcium 40 MG TAB PO SCH (21:10)
[2018-05-25] MEDS: Acetaminophen 325 MG TAB PO PRN (00:37)
[2018-05-25 04:59] LABS: #Basophils 0.1 thou/uL (0.0-0.2); #Eosinphils 0.3 thou/uL (0.0-0.7); #Lymphocytes 0.8 thou/uL (1.20-3.40); #Monocytes 0.7 thou/uL (0.11-0.59); #Neutrophils 4.3 thou/uL (1.40-6.50); %Basophils 1.4 % (0.0-1.0); %Eosinophils 4.1 % (0.0-10.0); %Monocytes 11.2 % (0.0-10.0); %Neutrophils 70.3 % (42.0-75.0); Hemoglobin 10.4 g/dL (12.0-16.0); Mean Corpuscular HGB CONC 29.3 g/dL (32.0-36.0); Mean Corpuscular Hemoglobin 22.3 pg (27.0-31.0); Mean Platelet Volume 9.9 fL (7.4-10.4); Platelet Count 239 thou/uL (130-400); RBC Distribution Width 22.5 % (11.5-14.5); Red Blood Cell (RBC) Count 4.65 mill/uL (4.20-5.40); White Blood Cell (WBC) Count 6.1 thou/uL (4.8-10.8)
[2018-05-25 05:11] LABS: ALT (SGPT) 38 U/L (8-55); AST (SGOT) 41 U/L (5-34); Albumin 2.7 g/dL (3.4-4.8); Alkaline Phosphatase 112 U/L (40-150); BUN (Urea Nitrogen) 35 mg/dL (9.8-20.1); Bilirubin, Total 1.6 mg/dL (0.2-1.2); Calc. Creatinine Clearance 39 mL/min (70-130); Calcium 8.2 mg/dL (7.8-10.44); Estimated GFR-MDRD 48; Globulin 3.8 g/dL (2.4-3.5); Glucose 91 mg/dL (83-110); Protein, Total 6.5 g/dL (6.0-8.3)
[2018-05-25 05:21] LABS: Chloride 81 mmol/L (98-107); Potassium 3.2 mmol/L (3.5-5.1); Sodium 133 mmol/L (136-145)
[2018-05-25 05:24] LABS: Anion Gap 13 mmol/L (10-20)
[2018-05-25 05:28] LABS: Carbon Dioxide 42 mmol/L (23-31)
[2018-05-25] MEDS: Furosemide 40 MG/4 ML VIAL SLOW IVP SCH (06:44)
[2018-05-25] MEDS ORDERED: Potassium Chloride 20 MEQ TAB PO SCH ×2 (07:30→17:00)
[2018-05-25] MEDS: Potassium Chloride 10 MEQ TAB PO SCH ×2 (08:13→15:27)
[2018-05-25] MEDS: Carvedilol 3.125 MG TAB PO SCH ×2 (08:36→17:42)
[2018-05-25] MEDS: Multivitamin W/ Minerals 1 TAB PO SCH (08:37)
[2018-05-25] MEDS: Sacubitril 24.5 MG/Valsartan 25.5 MG TABLET PO SCH ×2 (08:37→22:01)
[2018-05-25] MEDS: Iron Polysaccharides Complex 150 MG CAP PO SCH ×2 (08:37→17:47)
[2018-05-25] MEDS: Amoxicillin/Potassium Clav 500 MG TAB PO SCH ×2 (08:37→22:00)
--- NOTE | 2018-05-25 10:41 | PRG ---
DATE OF SERVICE: 05/25/2018 Ms. Temple is really diuresing well. She is feeling better. Her legs are feeling much better, the y are much less edematous. No chest pain or pressure. PHYSICAL EXAMINATION: VITAL SIGNS: Blood pressure 125/62, pulse 80, it is regular. LUNGS: Clear. CARDIAC: Normal S1, normal S2. ABDOMEN: Soft, nontender. EXTREMITIES: Only mild to moderate edema. LABORATORY DATA: CO2 is 42 indicating she is getting a metabolic alkalosis from the diuresis, potass ium is 3.2. Iron levels, ferritin to 218. ASSESSMENT: 1. Congestive heart failure, systolic, chronic, improving. 2. Iron deficiency anemia improved. I believe she got intravenous iron last admission. 3. Some nonsustained ventricular tachycardia. PLAN: 1. Continue current medical regimen. 2. Avoid hypokalemia. 3. Give her a dose of Diamox today.
--- NOTE | 2018-05-25 16:21 | PDOC.PN ---
- Subjective Encounter Start Date: 05/25/18 Encounter Start Time: 14:25 Doing well. No head pain. Says she is not worried about her head. - Objective Resuscitation Status: Resuscitation Status FULL:Full Resuscitation Vital Signs & Weight: Vital Signs (12 hours) Temp Pulse Resp BP Pulse Ox 05/25/18 16:03 98.5 F 78 18 114/58 L 93 L 05/25/18 12:42 97.5 F L 78 18 98/52 L 99 05/25/18 07:55 99 05/25/18 07:54 98.1 F 85 16 127/62 98 Weight Weight 138 lb I&O: 05/24/18 05/25/18 05/26/18 06:59 06:59 06:59 Intake Total 1420 1520 Output Total 2800 3000 Balance -1380 -1480 Result Diagrams: 05/25/18 04:39 05/25/18 04:39 Phys Exam - Physical Examination Constitutional: NAD Respiratory: no wheezing, no rales, no rhonchi, clear to auscultation bilateral Cardiovascular: RRR Gastrointestinal: soft, non-tender Wrinkles in LE's with much improved edema from yesterday. Psychiatric: normal affect Dx/Plan (1) Acute on chronic systolic (congestive) heart failure Code(s): I50.23 - ACUTE ON CHRONIC SYSTOLIC (CONGESTIVE) HEART FAILURE Status : Acute Comment: EF 20-25%, continue Lasix 80mg IV BID, Zaroxolyn 5mg daily, daily weight, continue IV Appreciate cardiology input. Continuing to diurese. Diamox ordered. (2) Paronychia of finger of left hand Code(s): L03.012 - CELLULITIS OF LEFT FINGER Status: Acute Comment: Start Augmentin 500mg BID, local care, Chlorhexidine scrub (3) Chronic obstruct airways disease Status: Chronic Comment: Well compensated. (4) Hypertension Code(s): I10 - ESSENTIAL (PRIMARY) HYPERTENSION Status: Chronic Qualifiers: Hypertension type: essential hypertension Qualified Code(s): I10 - Essential (primary) hypertension Comment: Continue Carvedilol, Lisinopril, serial monitoring (5) VERENICE (acute kidney injury) Code(s): N17.9 - ACUTE KIDNEY FAILURE, UNSPECIFIED Status: Acute Comment: Improved, avoid nephrotoxic meds and limit contrast exposure, serial creatinine (6) Generalized weakness Code(s): R53.1 - WEAKNESS Status: Acute Comment: PT for mobilization (7) Ischemic cardiomyopathy Code(s): I25.5 - ISCHEMIC CARDIOMYOPATHY Status: Acute Comment: EF 20-25%, medical optimization, Lasix, ASA, Lipitor, Digoxin and Lisinopril (8) CAD (coronary artery disease) Code(s): I25.10 - ATHSCL HEART DISEASE OF [place] CORONARY ARTERY W/O ANG PCTRS Status: Chronic Comment: on aspirin, statin and betablocker. (9) CKD (chronic kidney disease), stage III Code(s): N18.3 - CHRONIC KIDNEY DISEASE, STAGE 3 (MODERATE) Status: Acute - Plan * Continue Diuresis and PT.
[2018-05-25] MEDS: Rivaroxaban 10 MG TAB PO SCH (17:47)
[2018-05-25] MEDS ORDERED: Furosemide 40 MG/4 ML VIAL SLOW IVP SCH ×2 (18:00)
[2018-05-25] MEDS: Atorvastatin Calcium 40 MG TAB PO SCH (22:01)
[2018-05-26 06:09] LABS: BUN (Urea Nitrogen) 35 mg/dL (9.8-20.1); Calc. Creatinine Clearance 34 mL/min (70-130); Calcium 9.3 mg/dL (7.8-10.44); Estimated GFR-MDRD 41; Glucose 94 mg/dL (83-110)
[2018-05-26 06:19] LABS: Anion Gap 14 mmol/L (10-20); Chloride 81 mmol/L (98-107); Potassium 3.7 mmol/L (3.5-5.1); Sodium 134 mmol/L (136-145)
[2018-05-26 06:24] LABS: Carbon Dioxide 43 mmol/L (23-31)
[2018-05-26] MEDS ORDERED: acetaZOLAMIDE Sodium 500 MG in Sodium Chloride 0.9% 50 ML IVPB SCH ×2 (08:00→12:00)
[2018-05-26] MEDS: Carvedilol 3.125 MG TAB PO SCH (09:15)
[2018-05-26] MEDS: Sacubitril 24.5 MG/Valsartan 25.5 MG TABLET PO SCH (09:16)
[2018-05-26] MEDS: Multivitamin W/ Minerals 1 TAB PO SCH (09:19)
[2018-05-26] MEDS: Potassium Chloride 10 MEQ TAB PO SCH ×2 (09:19→17:34)
[2018-05-26] MEDS: Iron Polysaccharides Complex 150 MG CAP PO SCH ×2 (09:19→18:21)
[2018-05-26] MEDS: Amoxicillin/Potassium Clav 500 MG TAB PO SCH ×2 (09:19→20:58)
[2018-05-26] MEDS ORDERED: Potassium Chloride 20 MEQ TAB PO SCH (09:30)
[2018-05-26] MEDS ORDERED: acetaZOLAMIDE Sodium 500 MG in Sodium Chloride 0.9% 50 ML IVPB PRN (09:44)
--- NOTE | 2018-05-26 09:44 | PRG ---
DATE OF SERVICE: 05/26/2018. SUBJECTIVE: Ms. Temple's blood pressure is low today. She had some chest pain, but it felt like a pounding sensation. Her blood pressure is low at 92 systolic. She does not feel well. She is lying supine. PHYSICAL EXAMINATION: VITAL SIGNS: Her blood pressure as mentioned is 92 systolic, pulse is 80. LUNGS: Clear. CARDIAC: Normal S1, normal S2. ABDOMEN: Soft, nontender. EXTREMITIES: Only mild edema. PERTINENT LABORATORY DATA: Her hemoglobin is 10.4. Her CO2 is up to 43, BUN 35, creatinine 1.25, po tassium 3.7. On the I&O, she is down another 1.5 liters. The weight indicates she is down 33 pounds since admissi on. ASSESSMENT: 1. Congestive heart failure, systolic, acute on chronic, improving. 2. Metabolic alkalosis secondary to diuresis. 3. Blood pressure currently too low. PLAN: 1. Hold Coreg and Entresto this morning. 2. She is off furosemide. She did get 2 doses yesterday. 3. Give her Diamox later today if the blood pressure allows.
[2018-05-26 17:20] LABS: Platelet Count 250 thou/uL (130-400)
[2018-05-26] MEDS: Rivaroxaban 10 MG TAB PO SCH (18:21)
[2018-05-26] MEDS: Atorvastatin Calcium 40 MG TAB PO SCH (20:58)
[2018-05-26] MEDS: Melatonin 3 MG TAB PO PRN (20:58)
[2018-05-27 05:53] LABS: Anion Gap 13 mmol/L (10-20); BUN (Urea Nitrogen) 39 mg/dL (9.8-20.1); Calc. Creatinine Clearance 34 mL/min (70-130); Calcium 8.7 mg/dL (7.8-10.44); Carbon Dioxide 36 mmol/L (23-31); Chloride 85 mmol/L (98-107); Estimated GFR-MDRD 42; Glucose 101 mg/dL (83-110); Potassium 3.7 mmol/L (3.5-5.1); Sodium 130 mmol/L (136-145)
[2018-05-27] MEDS ORDERED: Sodium Chloride 0.9% 10 ML ONE (08:43)
[2018-05-27] MEDS ORDERED: Carvedilol 3.125 MG TAB PO SCH ×2 (09:00→17:00)
--- NOTE | 2018-05-27 09:14 | PRG ---
DATE OF SERVICE: 05/27/2018 Ms. Temple feels much better today, no complaints, no shortness of breath. PHYSICAL EXAMINATION: VITAL SIGNS: Blood pressure 122/56, pulse 82 regular. LUNGS: Clear. CARDIAC: Normal S1, normal S2. ABDOMEN: Soft, nontender. EXTREMITIES: There is no edema. LABORATORY DATA: Sodium 130, potassium 3.7. She received a lot of potassium yesterday. Her CO2 is down to 36. ASSESSMENT: 1. Metabolic alkalosis, improved after withholding diuretics for a day. 2. Congestive heart failure was tremendously volume overloaded, now much better. Her weight is down as of yesterday to 131 pounds. She has not been weighed yet today, but that is 27 pounds down. 3. Nonsustained ventricular tachycardia. Talked to her about upgrading to a defibrillator. Explain ed to her that would not improve her left ventricular function. It could be lifesaving in the event of ventricular fibrillation, but it is uncertain. That would require taking out the biventricular pa cemaker and placing a defibrillator. The patient does not wish to pursue that at this time. PLAN: 1. Resume Entresto. 2. Resume carvedilol. 3. Probably will go back on diuretic tomorrow such as Torsemide. 4. Avoid hypokalemia. 5. [facility].
[2018-05-27] MEDS: Sacubitril 24.5 MG/Valsartan 25.5 MG TABLET PO SCH ×2 (09:26→20:58)
[2018-05-27] MEDS: Potassium Chloride 10 MEQ TAB PO SCH ×2 (09:27→16:38)
[2018-05-27] MEDS: Iron Polysaccharides Complex 150 MG CAP PO SCH ×2 (09:27→16:38)
[2018-05-27] MEDS: Amoxicillin/Potassium Clav 500 MG TAB PO SCH ×2 (09:27→20:58)
[2018-05-27] MEDS: Multivitamin W/ Minerals 1 TAB PO SCH (09:27)
[2018-05-27] MEDS ORDERED: Potassium Chloride 20 MEQ TAB PO SCH ×2 (12:00)
--- NOTE | 2018-05-27 15:12 | PDOC.PN ---
- Subjective Encounter Start Date: 05/26/18 Encounter Start Time: 08:50 Had some mild chest discomfort this morning. Head feels fine. - Objective Resuscitation Status: Resuscitation Status FULL:Full Resuscitation Vital Signs & Weight: Vital Signs (12 hours) Temp Pulse Resp BP Pulse Ox 05/27/18 12:10 72 98/58 L 05/27/18 11:55 98 F 74 18 88/56 L 98 05/27/18 07:59 97.6 F 82 18 122/56 L 100 05/27/18 03:52 97.7 F 75 19 108/56 L 99 Weight Weight 131 lb 12.8 oz I&O: 05/26/18 05/27/18 05/28/18 06:59 06:59 06:59 Intake Total 1020 1460 Output Total 3327 0 Balance -2307 -590 Result Diagrams: 05/26/18 17:10 05/27/18 05:25 Additional Labs: Accuchecks 05/24/18 18:20 POC Glucose 114 H Phys Exam - Physical Examination Constitutional: NAD Respiratory: no wheezing, no rales, no rhonchi, clear to auscultation bilateral Cardiovascular: RRR II/ murmur aortic position. Gastrointestinal: soft 1+ edema. Psychiatric: normal affect Dx/Plan (1) Acute on chronic systolic (congestive) heart failure Code(s): I50.23 - ACUTE ON CHRONIC SYSTOLIC (CONGESTIVE) HEART FAILURE Status : Acute Comment: EF 20-25%, holding lasix, daily weight. Appreciate cardiology input. Diamox ordered. May not be able to give. (2) Paronychia of finger of left hand Code(s): L03.012 - CELLULITIS OF LEFT FINGER Status: Acute Comment: Start Augmentin 500mg BID, local care, Chlorhexidine scrub (3) Chronic obstruct airways disease Status: Chronic Comment: Well compensated. (4) Hypertension Code(s): I10 - ESSENTIAL (PRIMARY) HYPERTENSION Status: Chronic Qualifiers: Hypertension type: essential hypertension Qualified Code(s): I10 - Essential (primary) hypertension Comment: Continue Carvedilol, Lisinopril, serial monitoring (5) VERENICE (acute kidney injury) Code(s): N17.9 - ACUTE KIDNEY FAILURE, UNSPECIFIED Status: Acute Comment: Improved, avoid nephrotoxic meds and limit contrast exposure, serial creatinine (6) Generalized weakness Code(s): R53.1 - WEAKNESS Status: Acute Comment: PT for mobilization (7) Ischemic cardiomyopathy Code(s): I25.5 - ISCHEMIC CARDIOMYOPATHY Status: Acute Comment: EF 20-25%, medical optimization, Lasix, ASA, Lipitor, Digoxin and Lisinopril (8) CAD (coronary artery disease) Code(s): I25.10 - ATHSCL HEART DISEASE OF [place] CORONARY ARTERY W/O ANG PCTRS Status: Chronic Comment: on aspirin, statin and betablocker. (9) CKD (chronic kidney disease), stage III Code(s): N18.3 - CHRONIC KIDNEY DISEASE, STAGE 3 (MODERATE) Status: Acute - Plan * above.
--- NOTE | 2018-05-27 15:18 | PDOC.PN ---
- Subjective Encounter Start Date: 05/27/18 Encounter Start Time: 11:00 Feels well. No complaints. [facility] - Objective Resuscitation Status: Resuscitation Status FULL:Full Resuscitation Vital Signs & Weight: Vital Signs (12 hours) Temp Pulse Resp BP Pulse Ox 05/27/18 12:10 72 98/58 L 05/27/18 11:55 98 F 74 18 88/56 L 98 05/27/18 07:59 97.6 F 82 18 122/56 L 100 05/27/18 03:52 97.7 F 75 19 108/56 L 99 Weight Weight 131 lb 12.8 oz I&O: 05/26/18 05/27/18 05/28/18 06:59 06:59 06:59 Intake Total 1020 1460 Output Total 3327 0 Balance -2307 -590 Result Diagrams: 05/26/18 17:10 05/27/18 05:25 Additional Labs: Accuchecks 05/24/18 18:20 POC Glucose 114 H Phys Exam - Physical Examination Constitutional: NAD Respiratory: no wheezing, no rales, no rhonchi, clear to auscultation bilateral Cardiovascular: RRR II/ murmur in aortic distribution. Gastrointestinal: soft, non-tender, no distention, positive bowel sounds Musculoskeletal: no edema Psychiatric: normal affect Dx/Plan (1) Acute on chronic systolic (congestive) heart failure Code(s): I50.23 - ACUTE ON CHRONIC SYSTOLIC (CONGESTIVE) HEART FAILURE Status : Acute Comment: EF 20-25%, holding lasix, daily weight. Appreciate cardiology input. Resuming the Entresto and Coreg. Possibly resume the diuretics tomorrow. (2) Paronychia of finger of left hand Code(s): L03.012 - CELLULITIS OF LEFT FINGER Status: Acute Comment: Start Augmentin 500mg BID, local care, Chlorhexidine scrub (3) Chronic obstruct airways disease Status: Chronic Comment: Well compensated. (4) Hypertension Code(s): I10 - ESSENTIAL (PRIMARY) HYPERTENSION Status: Chronic Qualifiers: Hypertension type: essential hypertension Qualified Code(s): I10 - Essential (primary) hypertension Comment: Continue Carvedilol, Lisinopril, serial monitoring. Has been low over past 24 hours. Improved. (5) VERENICE (acute kidney injury) Code(s): N17.9 - ACUTE KIDNEY FAILURE, UNSPECIFIED Status: Acute Comment: Improved, avoid nephrotoxic meds and limit contrast exposure, serial creatinine (6) Generalized weakness Code(s): R53.1 - WEAKNESS Status: Acute Comment: PT for mobilization (7) Ischemic cardiomyopathy Code(s): I25.5 - ISCHEMIC CARDIOMYOPATHY Status: Acute Comment: EF 20-25%, medical optimization, Lasix, ASA, Lipitor, Digoxin and Lisinopril (8) CAD (coronary artery disease) Code(s): I25.10 - ATHSCL HEART DISEASE OF [place] CORONARY ARTERY W/O ANG PCTRS Status: Chronic Comment: on aspirin, statin and betablocker. (9) CKD (chronic kidney disease), stage III Code(s): N18.3 - CHRONIC KIDNEY DISEASE, STAGE 3 (MODERATE) Status: Acute - Plan * above.
[2018-05-27] MEDS: Rivaroxaban 10 MG TAB PO SCH (16:38)
[2018-05-27] MEDS: Atorvastatin Calcium 40 MG TAB PO SCH (20:58)
[2018-05-27] MEDS: Melatonin 3 MG TAB PO PRN (21:19)
[2018-05-28 06:09] LABS: Anion Gap 11 mmol/L (10-20); BUN (Urea Nitrogen) 39 mg/dL (9.8-20.1); Calc. Creatinine Clearance 33 mL/min (70-130); Calcium 8.8 mg/dL (7.8-10.44); Carbon Dioxide 37 mmol/L (23-31); Chloride 86 mmol/L (98-107); Estimated GFR-MDRD 40; Glucose 105 mg/dL (83-110); Potassium 4.2 mmol/L (3.5-5.1); Sodium 130 mmol/L (136-145)
[2018-05-28] MEDS: Potassium Chloride 10 MEQ TAB PO SCH ×2 (08:02→16:01)
[2018-05-28] MEDS: Iron Polysaccharides Complex 150 MG CAP PO SCH ×2 (08:02→16:01)
[2018-05-28] MEDS: Amoxicillin/Potassium Clav 500 MG TAB PO SCH ×2 (08:03→20:43)
[2018-05-28] MEDS: Sacubitril 24.5 MG/Valsartan 25.5 MG TABLET PO SCH ×2 (08:03→21:53)
[2018-05-28] MEDS: Multivitamin W/ Minerals 1 TAB PO SCH (08:03)
--- NOTE | 2018-05-28 10:47 | PRG ---
DATE OF SERVICE: 05/28/2018 SUBJECTIVE: Ms. Temple feels better today, but still very weak even with minimal exertion, get ronnie rt of breath and fatigue. OBJECTIVE: VITAL SIGNS: Blood pressure earlier this morning was 90/50, now 112/55, pulse 80 and regular. LUNGS: Clear. CARDIAC: Normal S1, normal S2. ABDOMEN: Soft and nontender. ASSESSMENT: 1. Congestive heart failure, severe, systolic, associated with hypotension. 2. Episode of nonsustained ventricular tachycardia. 3. Previous biventricular pacemaker. 4. AV junction ablation. 5. Cannot tolerate even low dose carvedilol without hypotension. PLAN: 1. Continue Entresto low dose. 2. [facility]. Unfortunately, the prognosis appears very poor. Rossy lafleur can even tolerate a very low dose beta-ortiz. I talked to her about defibrillator upgrade. She does not wish to do that.
--- NOTE | 2018-05-28 13:33 | PDOC.PN ---
- Subjective Encounter Start Date: 05/28/18 Encounter Start Time: 10:10 Feels ok. No specific concerns. Breathing ok. - Objective Resuscitation Status: Resuscitation Status FULL:Full Resuscitation Vital Signs & Weight: Vital Signs (12 hours) Temp Pulse Resp BP BP Pulse Ox 05/28/18 11:00 96.9 F L 83 16 87/48 L 98 05/28/18 08:00 99 05/28/18 07:38 97.7 F 81 17 112/55 L 99 05/28/18 04:00 97.4 F L 76 20 90/51 L 95 05/28/18 03:47 99 Weight Weight 137 lb 6.4 oz I&O: 05/27/18 05/28/18 05/29/18 06:59 06:59 06:59 Intake Total 1460 1360 Output Total 2050 1075 Balance -590 285 Result Diagrams: 05/26/18 17:10 05/28/18 05:11 Phys Exam - Physical Examination Respiratory: no wheezing, no rales, no rhonchi, clear to auscultation bilateral II/ Ao Murmur Gastrointestinal: soft, non-tender, no distention 1+ edema. Psychiatric: normal affect Dx/Plan (1) Acute on chronic systolic (congestive) heart failure Code(s): I50.23 - ACUTE ON CHRONIC SYSTOLIC (CONGESTIVE) HEART FAILURE Status : Acute Comment: Once she is symptomatically better with diuresis, she is hypotensive. Attempts to add further meds worsens BP. EF 20-25%, holding lasix. Appreciate cardiology input. Maintaining Entresto. Stopping Coreg. (2) Paronychia of finger of left hand Code(s): L03.012 - CELLULITIS OF LEFT FINGER Status: Acute Comment: Start Augmentin 500mg BID, local care, Chlorhexidine scrub (3) Chronic obstruct airways disease Status: Chronic Comment: Well compensated. (4) Hypertension Code(s): I10 - ESSENTIAL (PRIMARY) HYPERTENSION Status: Chronic Qualifiers: Hypertension type: essential hypertension Qualified Code(s): I10 - Essential (primary) hypertension Comment: Continue, Lisinopril, as tolerated. Hypotensive when CHF adequately addressed. (5) VERENICE (acute kidney injury) Code(s): N17.9 - ACUTE KIDNEY FAILURE, UNSPECIFIED Status: Acute Comment: Improved, avoid nephrotoxic meds and limit contrast exposure, serial creatinine (6) Generalized weakness Code(s): R53.1 - WEAKNESS Status: Acute Comment: PT for mobilization (7) Ischemic cardiomyopathy Code(s): I25.5 - ISCHEMIC CARDIOMYOPATHY Status: Acute Comment: EF 20-25%, medical optimization, Lasix, ASA, Lipitor, Digoxin and afterload as tolerated. Cannot tolerate BB secondary to hypotension. (8) CAD (coronary artery disease) Code(s): I25.10 - ATHSCL HEART DISEASE OF [place] CORONARY ARTERY W/O ANG PCTRS Status: Chronic Comment: on aspirin, statin and betablocker. (9) CKD (chronic kidney disease), stage III Code(s): N18.3 - CHRONIC KIDNEY DISEASE, STAGE 3 (MODERATE) Status: Acute - Plan * Now off BB. Continue to monitor BP on Entresto. * Appreciate cardiology input.
[2018-05-28] MEDS: Rivaroxaban 10 MG TAB PO SCH (16:01)
[2018-05-28 18:03] LABS: Platelet Count 237 thou/uL (130-400)
[2018-05-28] MEDS ORDERED: Sodium Chloride 0.9% 10 ML ONE (20:33)
[2018-05-28] MEDS: Melatonin 3 MG TAB PO PRN (20:47)
[2018-05-28] MEDS: Atorvastatin Calcium 40 MG TAB PO SCH (20:47)
[2018-05-29] MEDS: Acetaminophen 325 MG TAB PO PRN (02:29)
[2018-05-29] MEDS: Iron Polysaccharides Complex 150 MG CAP PO SCH ×2 (08:34→17:39)
[2018-05-29] MEDS: Potassium Chloride 10 MEQ TAB PO SCH ×2 (08:36→17:39)
[2018-05-29] MEDS: Multivitamin W/ Minerals 1 TAB PO SCH (08:36)
[2018-05-29] MEDS: Sacubitril 24.5 MG/Valsartan 25.5 MG TABLET PO SCH ×2 (08:36→21:13)
--- NOTE | 2018-05-29 11:06 | PRG ---
DATE OF SERVICE: 05/29/2018 SUBJECTIVE: Ms. Temple is feeling better today. She wants to be released to go back to the [facility]. OBJECTIVE: VITAL SIGNS: Her blood pressure earlier was 108/56, now 90/50; pulse 70. LUNGS: Clear. CARDIAC: Normal S1, normal S2. ABDOMEN: Soft, nontender. EXTREMITIES: There is only minimal edema. ASSESSMENT: 1. Congestive heart failure, systolic, severe. 2. Hypotension, cannot tolerate beta blockers. 3. History of atrial arrhythmias. PLAN: 1. She is on Entresto only. Cannot tolerate carvedilol. 2. Does not wish to pursue the LifeVest or defibrillator upgrade. 3. Prognosis remains poor. Likely released back to the [facility] tomorrow. 4. We will recheck kidney function tomorrow.
--- NOTE | 2018-05-29 12:01 | PDOC.PN ---
- Subjective Encounter Start Date: 05/29/18 Encounter Start Time: 10:10 Doing well overall. No complaints except the left ankle area is a little sore. - Objective Resuscitation Status: Resuscitation Status FULL:Full Resuscitation Vital Signs & Weight: Vital Signs (12 hours) Temp Pulse Resp BP Pulse Ox 05/29/18 08:00 97.7 F 74 18 90/51 L 98 05/29/18 03:45 97.8 F 85 20 108/56 L 94 L 05/29/18 03:02 97 Weight Weight 138 lb 12.8 oz I&O: 05/28/18 05/29/18 05/30/18 06:59 06:59 06:59 Intake Total 1360 960 Output Total 1075 600 Balance 285 360 Result Diagrams: 05/28/18 17:38 05/28/18 17:38 Phys Exam - Physical Examination Constitutional: NAD Respiratory: no wheezing, no rales, no rhonchi, clear to auscultation bilateral Cardiovascular: RRR II/ AoM Gastrointestinal: soft 1+ edema of both ankles. Psychiatric: normal affect Skin: no rash Dx/Plan (1) Acute on chronic systolic (congestive) heart failure Code(s): I50.23 - ACUTE ON CHRONIC SYSTOLIC (CONGESTIVE) HEART FAILURE Status : Acute Comment: Once she is symptomatically better with diuresis, she is hypotensive. Attempts to add further meds worsens BP. EF 20-25%, holding lasix. Appreciate cardiology input. Maintaining Entresto. Off Coreg. (2) Paronychia of finger of left hand Code(s): L03.012 - CELLULITIS OF LEFT FINGER Status: Acute Comment: Start Augmentin 500mg BID, local care, Chlorhexidine scrub (3) Chronic obstruct airways disease Status: Chronic Comment: Well compensated. (4) Hypertension Code(s): I10 - ESSENTIAL (PRIMARY) HYPERTENSION Status: Chronic Qualifiers: Hypertension type: essential hypertension Qualified Code(s): I10 - Essential (primary) hypertension Comment: Continue, Lisinopril, as tolerated. Hypotensive when CHF adequately addressed. (5) VERENICE (acute kidney injury) Code(s): N17.9 - ACUTE KIDNEY FAILURE, UNSPECIFIED Status: Acute Comment: Improved, but creat up a little again today. Avoid nephrotoxic meds and limit contrast exposure, serial creatinine. (6) Generalized weakness Code(s): R53.1 - WEAKNESS Status: Acute Comment: PT for mobilization (7) Ischemic cardiomyopathy Code(s): I25.5 - ISCHEMIC CARDIOMYOPATHY Status: Acute Comment: EF 20-25%, medical optimization (8) CAD (coronary artery disease) Code(s): I25.10 - ATHSCL HEART DISEASE OF [place] CORONARY ARTERY W/O ANG PCTRS Status: Chronic Comment: on aspirin, statin and betablocker. (9) CKD (chronic kidney disease), stage III Code(s): N18.3 - CHRONIC KIDNEY DISEASE, STAGE 3 (MODERATE) Status: Acute - Plan * Seem to be at good compromise between CHF decompensation and hypotension/ azotemia. * Recheck renal function tomorrow and make decision regarding diuretics. * Anticipate discharge tomorrow.
[2018-05-29] MEDS: Rivaroxaban 10 MG TAB PO SCH (17:39)
[2018-05-29] MEDS ORDERED: Sodium Chloride 0.9% 250 ML 250 ML IVPB SCH (20:00)
[2018-05-29] MEDS: Atorvastatin Calcium 40 MG TAB PO SCH (21:13)
[2018-05-29] MEDS: Melatonin 3 MG TAB PO PRN (21:13)
[2018-05-30 05:50] LABS: Anion Gap 11 mmol/L (10-20); BUN (Urea Nitrogen) 43 mg/dL (9.8-20.1); Calc. Creatinine Clearance 31 mL/min (70-130); Calcium 8.8 mg/dL (7.8-10.44); Carbon Dioxide 35 mmol/L (23-31); Chloride 88 mmol/L (98-107); Estimated GFR-MDRD 36; Glucose 103 mg/dL (83-110); Potassium 4.2 mmol/L (3.5-5.1); Sodium 130 mmol/L (136-145)
[2018-05-30] MEDS: Potassium Chloride 10 MEQ TAB PO SCH ×2 (09:57→17:15)
[2018-05-30] MEDS: Sacubitril 24.5 MG/Valsartan 25.5 MG TABLET PO SCH ×2 (09:58→20:44)
[2018-05-30] MEDS: Multivitamin W/ Minerals 1 TAB PO SCH (09:59)
[2018-05-30] MEDS: Iron Polysaccharides Complex 150 MG CAP PO SCH ×2 (09:59→17:13)
--- NOTE | 2018-05-30 10:52 | PRG ---
DATE OF SERVICE: 05/30/2018 Ms. Temple states, "I'm just here". She sits up at about a 45 degree angle when I lower her down t o about 30 degree angle she is short of breath and has to go up higher. She is not having any chest pain. OBJECTIVE: VITAL SIGNS: Her blood pressure is 97/51, pulse 75 regular. LUNGS: Clear anteriorly and laterally. CARDIOVASCULAR: She has a 2-3/6 holosystolic murmur of mitral regurgitation. ABDOMEN: Soft, nontender. EXTREMITIES: There is only mild edema now. PERTINENT LABORATORY DATA: Sodium is 130, potassium is 4.2. I reviewed all the information, the patient had bypass surgery many years ago in 2002, that was done by Dr. Tucker, the internal mammary to the LAD, free radial to the diagonal, saphenous vein graft to obtuse marginal, saphenous vein graft to the left ventricular branch of the right coronary artery. She has three-vessel disease. At that time, she had a heart catheterization by Dr. Sebastian. Echocard iogram now reveals akinesis in the mid and distal anterior wall and apex akinesis of the lateral wall . She also has many fixed defects corresponding with that on the nuclear imaging with scar, but no i schemia. On exam, also I do not feel femoral pulses or pedal pulses. 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 She has advanced heart failure, coronary artery disease, peripheral vascular disease, renal insufficiency. She has had a biventricular pacem yesi which is functioning normally. I asked about code status. She said she did not wish to be resu scitated in the event of cardiac arrest. The goal of therapy should be to try to minimize pain and suffering. She is on low dose Entresto and will add low dose torsemide. Hopefully, the patient can be released back to the [facility], but the prognosis is very poor. The patient understands all this.
[2018-05-30 12:16] VITALS: BMI 22.4
[2018-05-30] MEDS: Torsemide 20 MG TAB PO SCH (12:36)
[2018-05-30 17:10] LABS: Platelet Count 226 thou/uL (130-400)
[2018-05-30] MEDS: Rivaroxaban 10 MG TAB PO SCH (17:15)
[2018-05-30] MEDS: Melatonin 3 MG TAB PO PRN (20:43)
[2018-05-30] MEDS: Atorvastatin Calcium 40 MG TAB PO SCH (20:44)
--- NOTE | 2018-05-30 20:50 | PDOC.PN ---
- Subjective Encounter Start Date: 05/30/18 Encounter Start Time: 09:30 Has no complaints today. She has not had any chest pain. - Objective Resuscitation Status: Resuscitation Status DNR:Do Not Resuscitate Vital Signs & Weight: Vital Signs (12 hours) Temp Pulse Pulse Pulse Resp BP BP 05/30/18 12:00 98.2 F 94 18 05/30/18 11:02 93 76 113/56 L 107/53 L BP Pulse Ox Pulse Ox Pulse Ox 05/30/18 12:00 98/53 L 95 05/30/18 11:02 99 99 Weight Admit Weight 162 lb 8 oz Weight 138 lb 12.8 oz I&O: 05/29/18 05/30/18 05/31/18 06:59 06:59 06:59 Intake Total 960 1010 480 Output Total 600 150 Balance 360 860 480 Result Diagrams: 05/30/18 16:53 05/30/18 16:53 Phys Exam - Physical Examination Constitutional: NAD Respiratory: no wheezing, no rales, no rhonchi Diminished breath sounds. Cardiovascular: RRR, no significant murmur Gastrointestinal: soft, non-tender, no distention 2+ edema of BLE's Dx/Plan (1) Acute on chronic systolic (congestive) heart failure Code(s): I50.23 - ACUTE ON CHRONIC SYSTOLIC (CONGESTIVE) HEART FAILURE Status : Acute Comment: Once she is symptomatically better with diuresis, she is hypotensive. Attempts to add further meds worsens BP. EF 20-25%. Appreciate cardiology input. Maintaining Entresto. Off Coreg due to low BP. Per cardiology. Torsemide started. She has endstage disease confounded by CAD, PVD , CKD. (2) Paronychia of finger of left hand Code(s): L03.012 - CELLULITIS OF LEFT FINGER Status: Resolved (3) Chronic obstruct airways disease Status: Chronic Comment: Well compensated. (4) Hypertension Code(s): I10 - ESSENTIAL (PRIMARY) HYPERTENSION Status: Chronic Qualifiers: Hypertension type: essential hypertension Qualified Code(s): I10 - Essential (primary) hypertension Comment: Continue Entresto as tolerated. Hypotensive when CHF adequately addressed. (5) VERENICE (acute kidney injury) Code(s): N17.9 - ACUTE KIDNEY FAILURE, UNSPECIFIED Status: Acute Comment: Improved, but creat up a little again today. Avoid nephrotoxic meds and limit contrast exposure, serial creatinine. (6) Generalized weakness Code(s): R53.1 - WEAKNESS Status: Acute Comment: PT for mobilization (7) Ischemic cardiomyopathy Code(s): I25.5 - ISCHEMIC CARDIOMYOPATHY Status: Acute Comment: EF 20-25%, medical optimization (8) CAD (coronary artery disease) Code(s): I25.10 - ATHSCL HEART DISEASE OF [place] CORONARY ARTERY W/O ANG PCTRS Status: Chronic Comment: on aspirin, statin and betablocker. (9) CKD (chronic kidney disease), stage III Code(s): N18.3 - CHRONIC KIDNEY DISEASE, STAGE 3 (MODERATE) Status: Acute - Plan * Anticipate discharge tomorrow. * Patient has decided to become DNR. Discussed this with her myself again and she is clear about her decision.
[2018-05-31 05:11] LABS: Anion Gap 16 mmol/L (10-20); BUN (Urea Nitrogen) 40 mg/dL (9.8-20.1); Calc. Creatinine Clearance 32 mL/min (70-130); Calcium 8.9 mg/dL (7.8-10.44); Carbon Dioxide 33 mmol/L (23-31); Chloride 91 mmol/L (98-107); Estimated GFR-MDRD 38; Glucose 93 mg/dL (83-110); Potassium 4.8 mmol/L (3.5-5.1); Sodium 135 mmol/L (136-145)
[2018-05-31] MEDS: Multivitamin W/ Minerals 1 TAB PO SCH (09:35)
[2018-05-31] MEDS: Potassium Chloride 10 MEQ TAB PO SCH (09:35)
[2018-05-31] MEDS: Sacubitril 24.5 MG/Valsartan 25.5 MG TABLET PO SCH (09:36)
[2018-05-31] MEDS: Iron Polysaccharides Complex 150 MG CAP PO SCH (09:37)
--- NOTE | 2018-05-31 09:46 | PDOC.PN ---
- Subjective Encounter Start Date: 05/31/18 Encounter Start Time: 09:30 -: old records requested/rev Patient seen and examined. No new complaints. No overnight events - Objective Resuscitation Status: Resuscitation Status DNR:Do Not Resuscitate MAR Reviewed: Yes Vital Signs & Weight: Vital Signs (12 hours) Temp Pulse Resp BP BP Pulse Ox 05/31/18 07:52 97.7 F 77 18 117/63 97 05/31/18 04:00 98.2 F 75 20 102/64 96 Weight Admit Weight 162 lb 8 oz Weight 144 lb I&O: 05/30/18 05/31/18 06/01/18 06:59 06:59 06:59 Intake Total 1010 980 Output Total 150 Balance 860 980 Result Diagrams: 05/30/18 16:53 05/31/18 03:08 Radiology Reviewed by me: Yes Phys Exam - Physical Examination Constitutional: NAD HEENT: PERRLA, moist MMs, sclera anicteric Neck: no JVD, supple Respiratory: no wheezing, no rales, no rhonchi Cardiovascular: RRR, no significant murmur, no rub Gastrointestinal: soft, non-tender, no distention, positive bowel sounds Musculoskeletal: no edema, pulses present Neurological: non-focal, normal sensation Psychiatric: normal affect, A&O x 3 Skin: no rash, normal turgor Dx/Plan (1) Acute on chronic systolic ACC/AHA stage C congestive heart failure Code(s): I50.23 - ACUTE ON CHRONIC SYSTOLIC (CONGESTIVE) HEART FAILURE Status : Acute (2) Elevated troponin I level Code(s): R74.8 - ABNORMAL LEVELS OF OTHER SERUM ENZYMES Status: Acute Comment: Demand ischemia in context of #1, see above for mgmt (3) CAD (coronary artery disease) Code(s): I25.10 - ATHSCL HEART DISEASE OF [place] CORONARY ARTERY W/O ANG PCTRS Status: Chronic Comment: on aspirin, statin and betablocker. (4) CKD (chronic kidney disease), stage III Code(s): N18.3 - CHRONIC KIDNEY DISEASE, STAGE 3 (MODERATE) Status: Chronic (5) Chronic anticoagulation Code(s): Z79.01 - [facility]FP (CURRENT) USE OF ANTICOAGULANTS Status: Chronic Comment: Continue home regimen (6) Chronic obstruct airways disease Status: Chronic Comment: Well compensated. (7) Compression fracture of L3 lumbar vertebra Code(s): S32.030A - [place] COMPRESSION FRACTURE OF THIRD LUMBAR VERTEBRA, INIT Status: Chronic Comment: (8) Hypertension Code(s): I10 - ESSENTIAL (PRIMARY) HYPERTENSION Status: Chronic Qualifiers: Hypertension type: essential hypertension Qualified Code(s): I10 - Essential (primary) hypertension Comment: Continue Entresto as tolerated. Hypotensive when CHF adequately addressed. (9) Ischemic cardiomyopathy Code(s): I25.5 - ISCHEMIC CARDIOMYOPATHY Status: Chronic Comment: EF 20-25% , medical optimization (10) Severe mitral regurgitation by prior echocardiogram Code(s): I34.0 - NONRHEUMATIC MITRAL (VALVE) INSUFFICIENCY Status: Chronic (11) Severe tricuspid regurgitation by prior echocardiogram Code(s): I07.1 - RHEUMATIC TRICUSPID INSUFFICIENCY Status: Chronic (12) Paronychia of finger of left hand Code(s): L03.012 - CELLULITIS OF LEFT FINGER Status: Resolved (13) CKD (chronic kidney disease) stage 4, GFR 15-29 ml/min Code(s): N18.4 - CHRONIC KIDNEY DISEASE, STAGE 4 (SEVERE) Status: Chronic Comment: near baseline CKD, avoid nephrotoxic meds and limit contrast exposure - Plan 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 Review of Systems - Review of Systems ENT: negative: Ear Pain, Ear Discharge, Nose Pain, Nose Discharge, Nose Congestion, Mouth Pain, Mouth Swelling, Throat Pain, Throat Swelling, Other Respiratory: negative: Cough, Dry, Shortness of Breath, Hemoptysis, SOB with Excertion, Pleuritic Pain, Sputum, Wheezing Cardiovascular: negative: chest pain, palpitations, orthopnea, paroxysmal nocturnal dyspnea, edema, light headedness, other Gastrointestinal: negative: Nausea, Vomiting, Abdominal Pain, Diarrhea, Constipation, Melena, Hematochezia, Other Genitourinary: negative: Dysuria, Frequency, Incontinence, Hematuria, Retention , Other Musculoskeletal: negative: Neck Pain, Shoulder Pain, Arm Pain, Back Pain, Hand Pain, Leg Pain, Foot Pain, Other - Medications/Allergies Allergies/Adverse Reactions: Allergies Allergy/AdvReac Type Severity Reaction Status Date / Time Iodine and Iodide Containing Allergy Verified 05/20/18 22:37 Produc Medications: Current Medications Acetaminophen (Tylenol) 650 mg PO Q4H PRN PRN Reason: Headache/Fever/Mild Pain (1-3) Last Admin: 05/29/18 02:29 Dose: 650 mg Albuterol Sulfate (Ventolin) 7.5 mg NEB Q6H PRN PRN Reason: SOB, Wheezing Aspirin (Aspirin Chewable) 81 mg PO DAILY [facility] Last Admin: 05/31/18 09:35 Dose: 81 mg Atorvastatin Calcium (Lipitor) 40 mg PO HS [facility] Last Admin: 05/30/18 20:44 Dose: 40 mg Galantamine Hydrobromide (Razadyne) 12 mg PO BID [facility] Last Admin: 05/31/18 09:42 Dose: 12 mg Iron/Minerals/Multivitamins (Theragran M) 1 tab PO DAILY [facility] Last Admin: 05/31/18 09:35 Dose: 1 tab Melatonin (Melatonin) 6 mg PO HSPRN PRN PRN Reason: Insomnia Last Admin: 05/30/18 20:43 Dose: 6 mg Nystatin (Mycostatin Powder) 0 gm TOP BIDPRN PRN PRN Reason: Rash/Topical Irritation Ondansetron HCl (Zofran Odt) 4 mg PO Q6H PRN PRN Reason: Nausea/Vomiting Pantoprazole Sodium (Protonix) 40 mg PO DAILY [facility] Last Admin: 05/31/18 09:36 Dose: 40 mg Polysaccharide Iron Complex (Niferex) 150 mg PO BID[facility] Last Admin: 05/31/18 09:37 Dose: 150 mg Potassium Chloride (Klor-Con 10) 10 meq PO BID-[facility] Last Admin: 05/31/18 09:35 Dose: 10 meq Rivaroxaban (Xarelto) 10 mg PO 1700 [facility] Last Admin: 05/30/18 17:15 Dose: 10 mg Sacubitril/Valsartan (Entresto 24.5 Mg-25.5 Mg Tablet) 1 tab PO BID [facility] Last Admin: 05/31/18 09:36 Dose: 1 tab Senna/Docusate Sodium (Senokot S) 2 tab PO BID PRN PRN Reason: Constipation Torsemide (Demadex) 20 mg PO 1200 [facility] Last Admin: 05/30/18 12:36 Dose: 20 mg
--- NOTE | 2018-05-31 10:25 | DIS ---
DATE OF ADMISSION: 05/21/2018 DATE OF DISCHARGE: 05/31/2018 PRIMARY CARE PHYSICIAN: Yamini Ibarra D.O. DISCHARGE DISPOSITION: half-way home at [facility]. PRIMARY DISCHARGE DIAGNOSIS: Acute on chronic systolic, stage C, congestive heart failure exacerbati on. SECONDARY DISCHARGE DIAGNOSES: Chronic systolic heart failure, coronary artery disease, chronic anti coagulation, chronic obstructive pulmonary disease, chronic kidney disease stage 3, history of compre ssion fracture of L3, hypertension, ischemic cardiomyopathy, severe mitral and tricuspid regurgitatio n. PRIMARY PROCEDURE/OPERATION: None. RADIOLOGICAL INVESTIGATION: Chest x-ray on admission showed pulmonary vascular congestion. Abdomen and pelvis CT scan on admission showed moderate bilateral pleural effusion and anasarca. CT brain ne gative for any acute intracranial process. SIGNIFICANT LABORATORY DATA: WBC 6.1, hemoglobin 11.0, and platelet 226. Sodium 135, potassium 4.8, BUN 40, creatinine 1.35, and calcium 8.9. Urinalysis unremarkable. DISCHARGE MEDICATIONS: Ventolin nebulization q.6 hourly p.r.n., Zofran 4 mg q.6 hourly p.r.n., Tylen ol 650 mg p.o. b.i.d. p.r.n., Lipitor 80 mg p.o. at bedtime, galantamine 12 mg p.o. b.i.d., Imodium p .r.n., milk of magnesia p.r.n., melatonin 3 mg p.o. at bedtime, multivitamin 1 tablet p.o. daily, nys tatin application b.i.d. p.r.n., Protonix 20 mg daily, Xarelto 10 mg daily, aspirin 81 mg p.o. daily, Coreg 3.125 mg p.o. b.i.d., iron polysaccharide 1 capsule p.o. b.i.d., potassium chloride 10 mEq p.o . b.i.d., Entresto one tablet p.o. b.i.d. and torsemide 20 mg p.o. daily. CONTRAINDICATIONS: None. CODE STATUS: DNR. INPATIENT CONSULTANTS: Dr. Houston was following while in hospital. TEST RESULTS PENDING ON DISCHARGE: None. ALLERGIES: IODINE and IODINATED CONTAINING PRODUCT. DISCHARGE PLAN: Post hospital, the patient will follow up with Dr. Houston, [facility], and primary care physician in 1 week. HOSPITAL COURSE: An 83-year-old female who has had congestive heart failure with EF 20% to 25%. The patient was admitted by Dr. Lyons for increasing shortness of breath. The patient was evaluated by Cardiology upon admission. The patient's chest x-ray was consistent with pulmonary vascular congesti on. CT of the abdomen and pelvis also showed anasarca and pleural effusion. The patient was admitte d to cardiac floor where she was treated aggressively with the diuretic therapy and the patient weigh t was closely monitored. Her renal function was monitored as well. Cardiology was continued to foll ow while in hospital. This patient had a code green while in hospital. That is why CT brain was done which was negative fo r any acute intracranial process. The patient's medication was adjusted by Cardiology as above. Dur ing this admission, we started Entresto. Coreg was continued. Demadex dose reduced to 20 mg daily. The patient is currently euvolemic. The patient is on room air. She is able to ambulate by herself . She is completely asymptomatic and she expressed her wish to go home today. I have reviewed entire chart of this patient because today was my first day with this patient. Heart failure education given, fluid restriction discussed with the patient. The patient will follow up w ith primary care physician. On discharge day, discharge medication reconciliation done. Paper work for discharge done. The patient is seen and examined at bedside today. Please see my progress note from today for furthe r detail. Total time spent on discharge is 32 minutes.
[2018-05-31] MEDS: Torsemide 20 MG TAB PO SCH (11:42)
[2018-05-31 12:14] VITALS: BP 114/67; TEMP 98.1
== END 2018-05-31 14:15 | DRG 291 ==
LOC: ERS 16:17 → 2SW 19:15 → OBSVTOIN 05-21 15:35 → 2NO 05-21 19:29 → T4-A 05-30 14:07
PROVIDERS: ADMIT Family Medicine; ATTEND Family Medicine
DX: I13.0 Hypertensive heart and chronic kidney disease with heart failure and stage 1 through stage 4 chronic kidney disease, or unspecified chronic kidney disease (principal); I50.21 Acute systolic (congestive) heart failure; N17.9 Acute kidney failure, unspecified; E87.1 Hypo-osmolality and hyponatremia; I47.2 Ventricular tachycardia; E87.3 Alkalosis; N18.4 Chronic kidney disease, stage 4 (severe); G30.9 Alzheimer's disease, unspecified; F02.80 Dementia in other diseases classified elsewhere, unspecified severity, without behavioral disturbance, psychotic disturbance, mood disturbance, and anxiety; I73.9 Peripheral vascular disease, unspecified; I25.10 Atherosclerotic heart disease of native coronary artery without angina pectoris; I48.91 Unspecified atrial fibrillation; M62.50 Muscle wasting and atrophy, not elsewhere classified, unspecified site; D21.9 Benign neoplasm of connective and other soft tissue, unspecified; D50.9 Iron deficiency anemia, unspecified; Z95.1 Presence of aortocoronary bypass graft; Z95.0 Presence of cardiac pacemaker; F41.9 Anxiety disorder, unspecified; I08.3 Combined rheumatic disorders of mitral, aortic and tricuspid valves; F32.9 Major depressive disorder, single episode, unspecified; Z91.048 Other nonmedicinal substance allergy status; I95.9 Hypotension, unspecified; Z79.01 Long term (current) use of anticoagulants; Z79.899 Other long term (current) drug therapy; I25.5 Ischemic cardiomyopathy; Z66 Do not resuscitate; L03.012 Cellulitis of left finger
CPT/HCPCS: 36415; 36416; 70450; 71045; 74176; 80048; 80053; 81003; 81015; 82550; 82553; 82565; 82728; 83735; 83880; 84484; 85014; 85018; 85025; 85049; 93005; 93798; 96374; J1120; J1160; J1940; J7050

== ENCOUNTER 2018-06-10 14:36 | Emergency (ER) | payer MEDICARE, MEDICAID ==
[2018-06-10] MEDS ORDERED: Furosemide 40 MG/4 ML VIAL ONE (15:22)
[2018-06-10 15:35] LABS: #Basophils 0.1 thou/uL (0.0-0.2); #Eosinphils 0.1 thou/uL (0.0-0.7); #Lymphocytes 0.7 thou/uL (1.20-3.40); #Monocytes 0.3 thou/uL (0.11-0.59); #Neutrophils 4.7 thou/uL (1.40-6.50); %Basophils 1.9 % (0.0-1.0); %Eosinophils 2.4 % (0.0-10.0); %Lymphocytes 12.2 % (21.0-51.0); %Monocytes 5.3 % (0.0-10.0); %Neutrophils 78.3 % (42.0-75.0); Hemoglobin 10.7 g/dL (12.0-16.0); Mean Corpuscular Hemoglobin 23.7 pg (27.0-31.0); Mean Corpuscular Volume 79.1 fL (78.0-98.0); Mean Platelet Volume 9.9 fL (7.4-10.4); Platelet Count 315 thou/uL (130-400); RBC Distribution Width 22.9 % (11.5-14.5); Red Blood Cell (RBC) Count 4.49 mill/uL (4.20-5.40)
[2018-06-10 15:48] LABS: Acanthocytes SLIGHT = 1-5 cells (100X) (None Seen); Anisocytosis MODERATE=16-30 cells (100X) (0-5/hpf); Burr Cells SLIGHT = 2-5 cells (100X) (0-1/hpf); Elliptocytes SLIGHT = 2-5 cells (100X) (0-1/hpf); Hypochromia SLIGHT = 6-15 cells (100X) (0-5/hpf); MDiff Complete? YES; PLT Morphology Comment Appears Adequate; Poikilocytosis SLIGHT = 6-15 cells (100X) (0-5/hpf); Polychromasia SLIGHT = 2-3 cells (100X) (0-2/hpf); Schistocytes SLIGHT = 2-5 cells (100X) (0-1/hpf); Target Cells SLIGHT = 2-5 cells (100X) (0-1/hpf)
--- NOTE | 2018-06-10 15:54 | RAD ---
PORTABLE CHEST: Date: 06/10/18 PROVIDED CLINICAL HISTORY: Shortness of breath. FINDINGS: Comparison with 05/20/18. The cardiac silhouette remains enlarged. Median sternotomy changes, vascular calcification, and left subclavian cardiac pacing device are redemonstrated. Prominence of the pulmonary vasculature is again seen. Patchy bibasilar air space disease is noted along with persistent blunting of the left costoph renic angle. IMPRESSION: Cardiomegaly and bilateral patchy air space disease with pulmonary vascular congestion may reflect co ngestive failure with alveolar edema and left pleural fluid. Pneumonia cannot be excluded. Follow-up is recommended. POS: [facility]
[2018-06-10 15:57] LABS: Digoxin Less than 0.15 ng/mL (0.8-2.0)
[2018-06-10 16:02] LABS: Troponin I Less than 0.010 ng/mL (< 0.028)
[2018-06-10 16:11] LABS: ALT (SGPT) 21 U/L (8-55); AST (SGOT) 29 U/L (5-34); Albumin 3.1 g/dL (3.4-4.8); Alkaline Phosphatase 135 U/L (40-150); Anion Gap 12 mmol/L (10-20); BUN (Urea Nitrogen) 47 mg/dL (9.8-20.1); Bilirubin, Total 0.9 mg/dL (0.2-1.2); Calc. Creatinine Clearance 0 mL/min (70-130); Calcium 8.4 mg/dL (7.8-10.44); Carbon Dioxide 27 mmol/L (23-31); Chloride 98 mmol/L (98-107); Estimated GFR-MDRD 32; Glucose 137 mg/dL (83-110); Potassium 4.7 mmol/L (3.5-5.1); Protein, Total 8.1 g/dL (6.0-8.3); Sodium 132 mmol/L (136-145)
== END 2018-06-10 21:20 ==
LOC: ERS 14:36
DX: I11.0 Hypertensive heart disease with heart failure (principal); I50.9 Heart failure, unspecified; D50.9 Iron deficiency anemia, unspecified; I25.10 Atherosclerotic heart disease of native coronary artery without angina pectoris; I48.91 Unspecified atrial fibrillation; J44.9 Chronic obstructive pulmonary disease, unspecified; K21.9 Gastro-esophageal reflux disease without esophagitis; Z87.891 Personal history of nicotine dependence; F41.9 Anxiety disorder, unspecified; F32.9 Major depressive disorder, single episode, unspecified; Z79.01 Long term (current) use of anticoagulants; Z79.899 Other long term (current) drug therapy
CPT/HCPCS: 36415; 71045; 80053; 80162; 83880; 84484; 85025; 93005; 96374; J1940

== ENCOUNTER 2018-06-16 08:15 | Emergency (ER) | payer MEDICARE, OTHER ==
--- NOTE | 2018-06-16 09:13 | RAD ---
CHEST ONE VIEW: History: Dyspnea. Comparison: 06-10-18 FINDINGS: Cardiac silhouette is magnified and enlarged. Pulmonary vasculature upper limits of normal. Patchy bi basilar infiltrate and blunting of the left lateral costophrenic angle are similar in appearance to t he prior exam. Mediastinum is midline with post-operative changes, aortic calcification and a multile darek left subclavian cardiac electronic device. No evidence of pneumothorax. IMPRESSION: 1. Pulmonary vascular congestion and left pleural fluid are unchanged from the previous exam of appro ximately one week ago. 2. Atherosclerosis. POS: [facility]
[2018-06-16 09:28] LABS: ALT (SGPT) 19 U/L (8-55); AST (SGOT) 21 U/L (5-34); Albumin 2.9 g/dL (3.4-4.8); Alkaline Phosphatase 116 U/L (40-150); Anion Gap 12 mmol/L (10-20); BUN (Urea Nitrogen) 57 mg/dL (9.8-20.1); Bilirubin, Total 1.1 mg/dL (0.2-1.2); Calc. Creatinine Clearance 0 mL/min (70-130); Calcium 8.8 mg/dL (7.8-10.44); Carbon Dioxide 27 mmol/L (23-31); Chloride 96 mmol/L (98-107); Estimated GFR-MDRD 35; Globulin 4.3 g/dL (2.4-3.5); Glucose 117 mg/dL (83-110); Potassium 4.8 mmol/L (3.5-5.1); Protein, Total 7.2 g/dL (6.0-8.3); Sodium 130 mmol/L (136-145)
[2018-06-16 09:40] LABS: #Basophils 0.1 thou/uL (0.0-0.2); #Eosinphils 0.2 thou/uL (0.0-0.7); #Lymphocytes 0.5 thou/uL (1.20-3.40); #Monocytes 0.5 thou/uL (0.11-0.59); #Neutrophils 4.8 thou/uL (1.40-6.50); %Basophils 1.2 % (0.0-1.0); %Eosinophils 2.7 % (0.0-10.0); %Lymphocytes 8.6 % (21.0-51.0); %Monocytes 8.5 % (0.0-10.0); Acanthocytes SLIGHT = 1-5 cells (100X) (None Seen); Hemoglobin 9.4 g/dL (12.0-16.0); Hypochromia SLIGHT = 6-15 cells (100X) (0-5/hpf); MDiff Complete? YES; Mean Corpuscular HGB CONC 31.2 g/dL (32.0-36.0); Mean Corpuscular Hemoglobin 24.3 pg (27.0-31.0); Mean Corpuscular Volume 77.8 fL (78.0-98.0); Mean Platelet Volume 9.4 fL (7.4-10.4); Microcytosis SLIGHT = 6-15 cells (100X) (0-5/hpf); Ovalocytes SLIGHT = 2-5 cells (100X) (0-1/hpf); PLT Morphology Comment Appears Adequate; Platelet Count 348 thou/uL (130-400); Poikilocytosis SLIGHT = 6-15 cells (100X) (0-5/hpf); RBC Distribution Width 22.5 % (11.5-14.5); Red Blood Cell (RBC) Count 3.86 mill/uL (4.20-5.40); White Blood Cell (WBC) Count 6.1 thou/uL (4.8-10.8)
[2018-06-16 09:53] LABS: Bilirubin Negative (Negative); Blood, Urine Negative (Negative); Clarity CLEAR (Clear); Glucose, Urine (Dipstick) Negative (Negative); Leukocyte Negative (Negative); Nitrite Negative (Negative); Protein, Urine (Dipstick) Negative (Neg-Trace); Specific Gravity, Urine 1.009 (1.002-1.036); Urobilinogen 0.2 mg/dL (0.2-1.0)
[2018-06-16] MEDS ORDERED: Furosemide 100 MG/10 ML VIAL ONE (10:28)
--- NOTE | 2018-06-18 13:54 | EKG ---
Test Reason : Blood Pressure : / mmHG Vent. Rate : 075 BPM Atrial Rate : 079 BPM P-R Int : 000 ms QRS Dur : 128 ms QT Int : 444 ms P-R-T Axes : 000 -40 042 degrees QTc Int : 495 ms Electronic ventricular pacemaker Confirmed by NERI BERNSTEIN ([id number]), manager editorial NUHA DOS SANTOS ([id number] on 06/18/2018 1:54:17 PM Referred By: Confirmed By:NERI BERNSTEIN
== END 2018-06-16 13:02 | disposition home or self-care (01) ==
LOC: ERS 08:15
DX: I11.0 Hypertensive heart disease with heart failure (principal); I50.9 Heart failure, unspecified; D50.9 Iron deficiency anemia, unspecified; G30.9 Alzheimer's disease, unspecified; I20.9 Angina pectoris, unspecified; I48.91 Unspecified atrial fibrillation; J44.9 Chronic obstructive pulmonary disease, unspecified; K21.9 Gastro-esophageal reflux disease without esophagitis; F41.9 Anxiety disorder, unspecified; F32.9 Major depressive disorder, single episode, unspecified; Z87.891 Personal history of nicotine dependence; Z79.899 Other long term (current) drug therapy
CPT/HCPCS: 36415; 51701; 71045; 80053; 81003; 83880; 84484; 85025; 93005; 96374; A4353; J1940

== ENCOUNTER 2018-06-17 20:13 | Emergency (ER) | payer MEDICARE, OTHER ==
[2018-06-17 20:43] LABS: Hemoglobin 9.4 g/dL (12.0-16.0); Mean Corpuscular HGB CONC 31.8 g/dL (32.0-36.0); Mean Corpuscular Hemoglobin 24.6 pg (27.0-31.0); Mean Corpuscular Volume 77.4 fL (78.0-98.0); Mean Platelet Volume 10.1 fL (7.4-10.4); Platelet Count 382 thou/uL (130-400); RBC Distribution Width 24.4 % (11.5-14.5); White Blood Cell (WBC) Count 9.2 thou/uL (4.8-10.8)
[2018-06-17 21:04] LABS: #Lymphocytes 0.8 thou/uL (1.20-3.40); #Monocytes 0.6 thou/uL (0.11-0.59); #Neutrophils 7.7 thou/uL (1.40-6.50); %Basophils 0.3 % (0.0-1.0); %Eosinophils 0.3 % (0.0-10.0); %Lymphocytes 8.1 % (21.0-51.0); %Monocytes 6.7 % (0.0-10.0); %Neutrophils 84.6 % (42.0-75.0); Acanthocytes SLIGHT = 1-5 cells (100X) (None Seen); Anisocytosis SLIGHT = 6-15 cells (100X) (0-5/hpf); Elliptocytes SLIGHT = 2-5 cells (100X) (0-1/hpf); MDiff Complete? YES
[2018-06-17] MEDS ORDERED: Furosemide 40 MG/4 ML VIAL ONE (21:31)
[2018-06-17 21:45] LABS: Chloride 96 mmol/L (98-107); Potassium 4.9 mmol/L (3.5-5.1); Sodium 132 mmol/L (136-145)
[2018-06-17 21:46] LABS: Calcium 8.7 mg/dL (7.8-10.44); Glucose 117 mg/dL (83-110)
[2018-06-17 21:47] LABS: Globulin 4.3 g/dL (2.4-3.5); Protein, Total 7.3 g/dL (6.0-8.3)
[2018-06-17 21:48] LABS: Anion Gap 17 mmol/L (10-20); Bilirubin, Total 0.8 mg/dL (0.2-1.2); Carbon Dioxide 24 mmol/L (23-31)
[2018-06-17 21:49] LABS: Alkaline Phosphatase 137 U/L (40-150)
--- NOTE | 2018-06-17 21:49 | RAD ---
PORTABLE AP CHEST X-RAY 06/17/18 HISTORY: Chest pain. COMPARISON: 06/16/18 FINDINGS: Dual lead left subclavian cardiac pacemaking device remains in place. Postsurgical changes related to CABG are again noted. The cardiac silhouette is magnified by projection but does appear enlarged. Th ere is small left pleural effusion and atelectasis again noted. Linear and slight patchy bibasilar de nsities are present. Pulmonary vasculature is within normal limits. Vascular calcifications are seen in the thoracic aorta. Vascular calcifications are also seen in the region of each subclavian as well as axillary arteries. There has been no interval change from prior exam. IMPRESSION: Stable chest. POS: [facility]
[2018-06-17 21:50] LABS: Calc. Creatinine Clearance 0 mL/min (70-130); Estimated GFR-MDRD 28
[2018-06-17 21:51] LABS: BUN (Urea Nitrogen) 75 mg/dL (9.8-20.1)
[2018-06-17 21:52] LABS: AST (SGOT) 20 U/L (5-34)
[2018-06-17 21:53] LABS: ALT (SGPT) 20 U/L (8-55); CK (CPK) 29 U/L (29-168)
--- NOTE | 2018-06-22 15:56 | EKG ---
Test Reason : CP/SOB Blood Pressure : / mmHG Vent. Rate : 079 BPM Atrial Rate : 083 BPM P-R Int : 000 ms QRS Dur : 134 ms QT Int : 424 ms P-R-T Axes : 000 -37 035 degrees QTc Int : 486 ms Electronic ventricular pacemaker Confirmed by LARS AMEZQUITA ([id number]), film and video editor LEO MORROW ([id number] on 06/22/2018 3:56:02 PM Referred By: ALIRIO Confirmed By:LARS AMEZQUITA
== END 2018-06-17 22:18 | disposition home or self-care (01) ==
LOC: ERS 20:13
DX: I11.0 Hypertensive heart disease with heart failure (principal); I50.9 Heart failure, unspecified; J44.9 Chronic obstructive pulmonary disease, unspecified; K21.9 Gastro-esophageal reflux disease without esophagitis; F41.9 Anxiety disorder, unspecified; I48.91 Unspecified atrial fibrillation; G30.9 Alzheimer's disease, unspecified; F02.80 Dementia in other diseases classified elsewhere, unspecified severity, without behavioral disturbance, psychotic disturbance, mood disturbance, and anxiety; Z87.891 Personal history of nicotine dependence; Z79.01 Long term (current) use of anticoagulants; Z79.899 Other long term (current) drug therapy
CPT/HCPCS: 36415; 71045; 80053; 82550; 83880; 84484; 85025; 93005; 96374; J1940

== ENCOUNTER 2018-06-20 14:57 | Emergency (ER) | payer MEDICARE, MEDICAID ==
[2018-06-20 15:49] LABS: Hemoglobin 9.9 g/dL (12.0-16.0); Mean Corpuscular HGB CONC 30.4 g/dL (32.0-36.0); Mean Corpuscular Hemoglobin 23.8 pg (27.0-31.0); Mean Corpuscular Volume 78.3 fL (78.0-98.0); Mean Platelet Volume 8.7 fL (7.4-10.4); Platelet Count 436 thou/uL (130-400); RBC Distribution Width 21.9 % (11.5-14.5); Red Blood Cell (RBC) Count 4.16 mill/uL (4.20-5.40); White Blood Cell (WBC) Count 7.8 thou/uL (4.8-10.8)
[2018-06-20 15:51] LABS: Bilirubin Negative (Negative); Blood, Urine Negative (Negative); Clarity CLEAR (Clear); Glucose, Urine (Dipstick) Negative (Negative); Leukocyte Negative (Negative); Nitrite Negative (Negative); Protein, Urine (Dipstick) Negative (Neg-Trace); Specific Gravity, Urine 1.008 (1.002-1.036); Urobilinogen 0.2 mg/dL (0.2-1.0)
--- NOTE | 2018-06-20 15:53 | RAD ---
FRONTAL RADIOGRAPH CHEST: Date: 06/20/18 COMPARISON: 06/17/18. HISTORY: Chest pain. FINDINGS: There is atherosclerotic calcification overlying the right lung apex. Heart and mediastinal contours are stable. Stable multilead transvenous pacing device and midline sternotomy wires. Mild hazy increased density in the right base suggests mild air space disease. Blunting of the costop hrenic angle on the left suggests small left pleural effusion. These findings are stable. There is mi ld pulmonary vascular congestion and mild perihilar/bibasilar interstitial density, which may reflect interstitial edema. Overall, these opacities have improved when compared to 06/10/18 and 06/16/18. IMPRESSION: Findings suggesting improving pulmonary edema. Follow-up to full resolution advised. POS: [facility]
[2018-06-20 16:08] LABS: Digoxin Less than 0.15 ng/mL (0.8-2.0)
[2018-06-20 16:09] LABS: ALT (SGPT) 18 U/L (8-55); AST (SGOT) 21 U/L (5-34); Albumin 3.2 g/dL (3.4-4.8); Alkaline Phosphatase 140 U/L (40-150); Anion Gap 13 mmol/L (10-20); BUN (Urea Nitrogen) 80 mg/dL (9.8-20.1); Bilirubin, Total 0.9 mg/dL (0.2-1.2); CK (CPK) 32 U/L (29-168); Calc. Creatinine Clearance 0 mL/min (70-130); Calcium 8.8 mg/dL (7.8-10.44); Carbon Dioxide 31 mmol/L (23-31); Chloride 93 mmol/L (98-107); Estimated GFR-MDRD 30; Glucose 113 mg/dL (83-110); Potassium 3.6 mmol/L (3.5-5.1); Protein, Total 7.2 g/dL (6.0-8.3); Sodium 133 mmol/L (136-145)
[2018-06-20 16:32] LABS: #Basophils 0.1 thou/uL (0.0-0.2); #Eosinphils 0.4 thou/uL (0.0-0.7); #Lymphocytes 0.9 thou/uL (1.20-3.40); #Monocytes 0.6 thou/uL (0.11-0.59); #Neutrophils 5.8 thou/uL (1.40-6.50); %Basophils 0.9 % (0.0-1.0); %Eosinophils 4.6 % (0.0-10.0); %Monocytes 7.2 % (0.0-10.0); %Neutrophils 75.3 % (42.0-75.0); Acanthocytes SLIGHT = 1-5 cells (100X) (None Seen); Anisocytosis SLIGHT = 6-15 cells (100X) (0-5/hpf); Elliptocytes SLIGHT = 2-5 cells (100X) (0-1/hpf); MDiff Complete? YES; Microcytosis SLIGHT = 6-15 cells (100X) (0-5/hpf); PLT Morphology Comment Appears Increased
== END 2018-06-20 19:41 | disposition home or self-care (01) ==
LOC: ERS 14:57
DX: I11.0 Hypertensive heart disease with heart failure (principal); I50.9 Heart failure, unspecified; D50.9 Iron deficiency anemia, unspecified; K59.00 Constipation, unspecified; G30.9 Alzheimer's disease, unspecified; I20.9 Angina pectoris, unspecified; I48.91 Unspecified atrial fibrillation; J44.9 Chronic obstructive pulmonary disease, unspecified; K21.9 Gastro-esophageal reflux disease without esophagitis; F41.9 Anxiety disorder, unspecified; F32.9 Major depressive disorder, single episode, unspecified; Z87.891 Personal history of nicotine dependence; Z79.899 Other long term (current) drug therapy
CPT/HCPCS: 71045; 80053; 80162; 81003; 82550; 83880; 84484; 85025; 93005

== ENCOUNTER 2018-06-21 08:48 | Outpatient (CLI) | payer MEDICARE, MEDICAID | END 2018-06-21 08:49 | disposition home or self-care (01) | LOC: BICMAMMO 08:48 | PROVIDERS: ATTEND Family Medicine | DX: N64.59 Other signs and symptoms in breast (principal); R63.4 Abnormal weight loss; Z80.3 Family history of malignant neoplasm of breast | CPT/HCPCS: 77066; G0279 ==

== ENCOUNTER 2018-06-23 10:45 | Emergency (ER) | payer MEDICARE, OTHER ==
[2018-06-23 11:54] LABS: Hemoglobin 9.4 g/dL (12.0-16.0); Mean Corpuscular HGB CONC 31.1 g/dL (32.0-36.0); Mean Platelet Volume 8.8 fL (7.4-10.4); Platelet Count 348 thou/uL (130-400); RBC Distribution Width 21.4 % (11.5-14.5); Red Blood Cell (RBC) Count 3.91 mill/uL (4.20-5.40); White Blood Cell (WBC) Count 8.9 thou/uL (4.8-10.8)
[2018-06-23] MEDS ORDERED: Furosemide 40 MG/4 ML VIAL ONE (11:54)
--- NOTE | 2018-06-23 11:54 | RAD ---
RADIOGRAPH CHEST 1 VIEW: Date: 06/23/18 Time: 1031 HOURS HISTORY: 83-year-old female with chest pain, congestive heart failure, and fluid volume overload. COMPARISON: 06/20/18. FINDINGS: Again noted are the sternotomy wires and left subclavian triple lead pacemaker. At least mild cardiom egaly. No pulmonary venous engorgement. No sakina pulmonary alveolar edema. Blunting of the left later al costophrenic angle is unchanged. The mild haziness at the right lung base, perhaps minimally impro jessie or resolved. Left basilar subsegmental atelectasis. No pneumothorax. IMPRESSION: 1. Small left pleural effusion. 2. Mild cardiomegaly without congestive heart failure. 3. Pacemaker. 4. Evidence of previous open heart surgery. JN [] POS: [facility]
[2018-06-23 12:10] LABS: #Basophils 0.1 thou/uL (0.0-0.2); #Eosinphils 0.4 thou/uL (0.0-0.7); #Lymphocytes 0.6 thou/uL (1.20-3.40); #Monocytes 0.6 thou/uL (0.11-0.59); #Neutrophils 7.2 thou/uL (1.40-6.50); %Eosinophils 4.9 % (0.0-10.0); %Lymphocytes 6.3 % (21.0-51.0); %Monocytes 6.9 % (0.0-10.0); %Neutrophils 80.9 % (42.0-75.0); Anisocytosis SLIGHT = 6-15 cells (100X) (0-5/hpf); Hypochromia SLIGHT = 6-15 cells (100X) (0-5/hpf); MDiff Complete? YES; Ovalocytes SLIGHT = 2-5 cells (100X) (0-1/hpf); Poikilocytosis SLIGHT = 6-15 cells (100X) (0-5/hpf)
[2018-06-23 12:22] LABS: ALT (SGPT) 24 U/L (8-55); Albumin 3.2 g/dL (3.4-4.8); Alkaline Phosphatase 111 U/L (40-150); BUN (Urea Nitrogen) 79 mg/dL (9.8-20.1); Bilirubin, Total 0.9 mg/dL (0.2-1.2); CK (CPK) 29 U/L (29-168); Calc. Creatinine Clearance 0 mL/min (70-130); Carbon Dioxide 32 mmol/L (23-31); Chloride 88 mmol/L (98-107); Estimated GFR-MDRD 31; Glucose 114 mg/dL (83-110); Lipase 49 U/L (8-78); Sodium 130 mmol/L (136-145)
[2018-06-23 12:35] LABS: AST (SGOT) 24 U/L (5-34); Globulin 4.1 g/dL (2.4-3.5); Potassium 3.6 mmol/L (3.5-5.1); Protein, Total 7.3 g/dL (6.0-8.3)
[2018-06-23 12:37] LABS: Anion Gap 14 mmol/L (10-20)
--- NOTE | 2018-06-25 13:48 | EKG ---
Test Reason : CHF Blood Pressure : / mmHG Vent. Rate : 086 BPM Atrial Rate : 087 BPM P-R Int : 000 ms QRS Dur : 140 ms QT Int : 428 ms P-R-T Axes : 000 -39 045 degrees QTc Int : 512 ms Ventricular-paced rhythm Abnormal ECG No ST elevation/[place] Confirmed by DERIK TORRES ([id number]), editor publications NUHA DOS SANTOS ([id number] on 06/25/2018 1:48:12 PM Referred By: Confirmed By:DERIK TORRES
== END 2018-06-23 16:40 ==
LOC: ERS 10:45
DX: I11.0 Hypertensive heart disease with heart failure (principal); I50.9 Heart failure, unspecified; R60.0 Localized edema; D50.9 Iron deficiency anemia, unspecified; J44.9 Chronic obstructive pulmonary disease, unspecified; K21.9 Gastro-esophageal reflux disease without esophagitis; I25.10 Atherosclerotic heart disease of native coronary artery without angina pectoris; F41.9 Anxiety disorder, unspecified; I73.9 Peripheral vascular disease, unspecified; F32.9 Major depressive disorder, single episode, unspecified; Z87.891 Personal history of nicotine dependence; Z79.899 Other long term (current) drug therapy; Z79.01 Long term (current) use of anticoagulants
CPT/HCPCS: 36415; 71045; 80053; 82550; 83690; 83880; 85025; 93005; 94760; 96374; J1940